=== PATIENT | female | born 1935 | race Caucasian/White ===

== ENCOUNTER → 2016-10-13 | Outpatient (CLI) | payer OTHER, MEDICARE ==
[~2016-10-13] MED LIST: GADAVIST IV PRN
[2016-10-13 09:41] LABS: BLOOD UREA NITROGEN 16 mg/dl (7-18); CREATININE 0.92 mg/dl (0.60-1.20)
--- NOTE | 2016-10-13 15:18 | DIAGNOSTIC IMAGING REPORT ---
BRAIN COMBO FOR IAC CLINICAL HISTORY: Dizziness. COMPARISON STUDY: No previous studies for comparison. TECHNIQUE: Utilizing a 1.5 Irma magnet, multiplanar, multi echo imaging of the brain was performed pre and postcontrast ministration with thin cut imaging through the internal auditory canals. Injection of 8 cc of Gadavist IV was uneventful. FINDINGS: There are no areas of restricted diffusion. No acute intracranial hemorrhage, midline shift or mass effect is present. Ventricular system is normal for age. Basilar cisterns are patent. There are no extra-axial collections. Flow-voids for the major intracranial vessels are present. Multiple small white matter T2 hyperintense foci suggest mild small vessel disease. There is no intracranial mass or pathologic enhancement. No mass or abnormal enhancement is identified within the internal auditory canals. The right anterior inferior cerebellar artery minimally extends into the right internal artery canal and contacts the right 7th and 8th cranial nerves. This finding is of uncertain clinical significance. Calvarial signal is maintained. Orbits and sinuses are unremarkable. There is no fluid within the mastoid air cells. IMPRESSION: 1. No acute intracranial findings. 2. No intracranial masses or pathologic enhancement within the internal auditory canals. 3. Right anterior inferior cerebellar artery slightly extends into the right internal auditory canal and contacts the right 7th and 8th cranial nerves. This finding is of questionable clinical significance and can be seen in asymptomatic patients. Electronically signed by: aH Haines M.D. 10/13/2016 3:16 PM Dictated Date/Time: 10/13/2016 10:35 AM
== END | disposition home or self-care (01) ==
LOC: C.MRI 08:08
PROVIDERS: ATTEND Physician Assistant
DX: R42 Dizziness and giddiness (principal); H90.3 Sensorineural hearing loss, bilateral

== ENCOUNTER 2023-11-19 16:06 | Inpatient (IN) ==
--- NOTE | 2023-11-19 16:49 | XRay Report ---
XR chest 1V portable HISTORY: Dyspnea COMPARISON: None. FINDINGS: No focal lung consolidations to suggest pneumonia. No evidence for pulmonary edema. Mild in terstitial thickening which is likely chronic. The cardiac silhouette is mildly enlarged. There are c alcifications within the aortic knob. No pleural effusions. No pneumothorax. IMPRESSION: Mild cardiomegaly. Otherwise, no acute process within the chest. ACT 112: Negative or not required by law. Electronically signed by: Christofer Titus M.D. 11/19/2023 4:48 PM
[2023-11-19 17:10] LABS: Basophils # (auto) 0.05 K/uL (0.00-0.20); Basophils % (auto) 0.8 %; Eosinophils # (auto) 0.09 K/uL (0.00-0.50); Eosinophils % (auto) 1.4 %; Hematocrit (blood only) 44.2 % (37.0-47.0); Hemoglobin 14.8 g/dl (12.0-16.0); Immature Granulocytes # (auto) 0.02 K/uL (0.01-0.20); Immature Granulocytes % (auto) 0.3 %; Lymphocytes # (auto) 1.19 K/uL (1.20-3.40); Lymphocytes % (auto) 18.6 %; Mean Corpuscular Hemoglobin 29.5 pg (25.0-34.0); Mean Corpuscular Hgb Conc 33.5 g/dL (32.0-36.0); Mean Corpuscular Volume 88.2 fL (80.0-100.0); Mean Platelet Volume 11.8 fL (9.4-12.4); Monocytes # (auto) 0.71 K/uL (0.11-0.59); Monocytes % (auto) 11.1 %; Neutrophils # (auto) 4.33 K/uL (1.40-6.50); Neutrophils % (auto) 67.8 %; Platelet Count 189 K/uL (130-400); RDW Coefficient of Variation 13.3 % (11.5-14.5); RDW Standard Deviation 43.1 fL (36.4-46.3); Red Blood Count 5.01 M/uL (4.20-5.40); White Blood Count 6.39 K/ul (4.8-10.8)
[2023-11-19 17:23] LABS: Albumin Globulin Ratio 1.6 (0.9-2); Albumin Level 4.4 gm/dl (3.4-5.0); BUN Creatinine Ratio 32.6 (10-20); Calcium 10.1 mg/dl (8.6-10.3); Creatinine Clr Calc Pharmacy 66.7 ml/min; Est GFR (African American) 62.4 ml/min; Est GFR (Non-African American) 53.9 ml/min; Globulin 2.7 gm/dl (2.5-4.0); Magnesium 1.6 mg/dl (1.7-2.4); Total Protein 7.1 gm/dl (6.0-8.3)
[2023-11-19] MEDS: FUROSEMIDE 40 MG/4 ML VIAL IV ONE (18:10)
[2023-11-19] MEDS: POTASSIUM CHLORIDE CRTAB 20 MEQ TABCR PO STA ×2 (18:10→20:16)
[2023-11-19] MEDS: POTASSIUM CHLORIDE / WTR 10 MEQ/100 ML PLCT IV ONE (18:10)
--- NOTE | 2023-11-19 18:17 | Emergency Department Note ---
Impression & Plan SOB (shortness of breath), Atrial fibrillation, Anticoagulant long-term use, CHF (congestive heart failure) ED Provider Note NAME: IAM ALICIA AGE: 88 SEX: Female INFORMANT: Patient ED PROVIDER(S): Mauro Pleitez MD CHIEF COMPLAINT: Shortness of breath PLAN: Disposition: Admitted Outpatient prescription management: none Referral: None MEDICAL DECISION MAKING: Patient presented because of shortness of breath. EMS noted her O2 saturations were in the 80s. Patient responded well to supplemental oxygen. She felt significantly better with oxygen. Chest x-ray reveals cardiomegaly without infiltrate. CBC was unremarkable. BNP is elevated. Patient has hypokalemia. She was given IV and oral potassium. Patient was treated with IV Lasix. Consultation made with cardiology, Dr Chen. Case discussed and diagnostics were reviewed. Discussed admission for diuresis and further management. He was in agreement. No additional recommendations made. Consultation was made with [facility] service. Patient was evaluated in the ER and admitted for further management. Care/management discussed with: Discussed with business process manager Level of care consideration(s): After review of the information above and other included data, I feel the patient requires escalation of care to admission Triage Nursing notes: reviewed and agree them. Vital Signs: reviewed and remarkable for hypertension Additional History obtained from: none Chronic Medical/Social Conditions affecting care: CHF, A-fib, anticoagulation Prior/ Outside/ External records reviewed: Prior cardiac echo reviewed mitral and aortic regurg noted. Differential Diagnosis: Reactive airway disease, pneumonia, pneumothorax, COPD, CHF, infections, cardiac ischemia, pulmonary embolism, musculoskeletal, gastrointestinal, as well as other pathologies. Diagnostics, independently interpreted by me: ECG: Twelve-lead ECG reveals atrial fibrillation at [address] elevation. Cardiac Monitoring: Cardiac monitoring ordered by me: The patient was placed on continuous cardiac monitoring and observed. It revealed atrial fibrillation at 80 bpm Medical decision rules: none Imaging studies: Chest x-ray concerning for cardiomegaly without infiltrate or significant effusion. I refer you to the EMR for further details. HPI: 88 year old Female arrives for evaluation of shortness of breath. This started over the last several days and is increasing. The patient also notes the following associated symptoms, heavy feeling of the chest without describing chest pain. Patient notes dyspnea on exertion. EMS noted that the patient had O2 saturations in the 80s but responded well to supplemental oxygen. 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 Current pain is rated as 0/10. Patient also notes frequent urination but this is not a new problem for her. She follows with urology for overactive bladder. Pt denies LOC, headache, fevers, chills, diaphoresis, visual changes, neck pain, chest pain, nausea, vomiting, abdominal pain, back pain, melena, hematochezia, new urinary symptoms, numbness, weakness, lymphadenopathy, rash, or other complaints. . PAST MEDICAL HISTORY: See Below, cardiomyopathy, CHF, A-fib, anticoagulated PAST SURGICAL HISTORY: See Below, SOCIAL HISTORY: See Below, retired HOME MEDICATIONS: See Below ALLERGIES: See Below VITALS: See Below PHYSICAL EXAMINATION: GENERAL: Awake, alert, mildly dyspneic-appearing, in no distress HENT: Normocephalic, atraumatic. Oropharynx unremarkable. EYES: Normal conjunctiva. Sclera non-icteric. NECK: Inspection normal. Non-tender. Supple. No nuchal rigidity. FROM. No masses. RESPIRATORY: Clear to auscultation. No wheezes. No rales. Mildly increased respiratory effort. CARDIAC: Normal rate. Irregular rhythm. No murmurs. No rubs. Extremities warm and well perfused. Pulses equal. No JVD. GI: Soft, non-distended. No tenderness to palpation. No rebound or guarding. No masses. RECTAL: Deferred. MUSCULOSKELETAL: Atraumatic. Chest examination reveals no tenderness. The back is symmetrical on inspection without obvious abnormality. There is no CVA tenderness to palpation. No joint edema. LOWER EXTREMITIES: Calves are equal size bilaterally and non-tender. No edema. Chronic venous discoloration. NEURO: Normal sensorium. No sensory or motor deficits noted. SKIN: No rash or jaundice noted. PROCEDURES: none CRITICAL CARE: none OBSERVATION NOTE: none Past Med/Surg History Medical History Overactive bladder Diabetes mellitus, type 2 Per 12/27/19 PCP note- last Hgb A1C 7.1 Hypothyroidism Basal cell carcinoma of nose Congestive heart failure Admitted October 2019 for diastolic CHF at [facility]- per cardio note 7/23/20- CHF now corrected with meds and patient feels well Atrial fibrillation reason for scheduled cardioversion, reason for eliquis Benign thyroid cyst Bowel obstruction High cholesterol Surgical History History of bilateral tubal ligation History of dilatation and curettage History of varicose vein ligation and stripping bilt History of colonoscopy History of esophagogastroduodenoscopy (EGD) History of Mohs micrographic surgery for skin cancer History of tooth extraction all teeth History of lumpectomy of right breast benign S/P thyroid biopsy History of thyroid surgery benign lump removal History of bilateral cataract extraction History of cardiac cath 2000 @ [facility] d/t SOB--no stents placed 2005 @ [facility]--no stents placed H/O exploratory laparotomy Family History Mother Diabetes Heart disease Cancer Sister Diabetes Heart disease Brother Cancer Hypertension Other No family history of adverse response to anesthesia Social History Smoking Status: Never smoker Second Hand Exposure: No; Do You Dip or Chew Tobacco: No; Hx Alcohol Use: No Hx Substance Use: No Preferred Language: Burmese Communication Ability: Effective Printer Assistant Required: No Beliefs That Will Affect Care: None marital status: Current Living Situation: Alone current occupational status: retired Feels Safe at Home: Yes Safety Concerns: Feels Safe At This Time Assistive Devices: Cane, Walker and Other Allergies Allergies Allergy/AdvReac Type Severity Reaction Status Date / Time lidocaine Allergy Intermediate rash, face Verified 11/19/23 19:14 got puffy Home Meds Home Medications Medication Instructions Recorded Confirmed atorvastatin 40 mg tablet 40 mg PO DAILY 12/25/19 11/19/23 glucosamine HCl 1,500 mg tablet 3,000 mg PO DAILY 12/25/19 11/19/23 levothyroxine 88 mcg capsule 88 mcg PO DAILY 12/25/19 11/19/23 apixaban 5 mg tablet (Eliquis) 5 mg PO BID 02/08/20 11/19/23 cholecalciferol (vitamin D3) 25 1,000 units PO DAILY 02/08/20 11/19/23 mcg (1,000 unit) capsule furosemide 40 mg tablet 40 mg PO DAILY 02/08/20 11/19/23 icosapent ethyl 1 gram capsule 1 gm PO DAILY 02/08/20 11/19/23 (Vascepa) metformin 500 mg tablet 500 mg PO BID 02/08/20 11/19/23 multivitamin 1 tab PO DAILY 02/08/20 11/19/23 potassium chloride 20 mEq 20 meq PO DAILY 02/08/20 11/19/23 tablet,extended release vitamin E 268 mg (400 unit) capsule 400 unit PO DAILY 02/15/20 11/19/23 lisinopril 10 mg tablet 10 mg PO DAILY 06/25/20 11/19/23 ascorbic acid (vitamin C) 500 mg 1,000 mg PO DAILY 01/08/22 11/19/23 capsule Benefiber Tab 1 tab PO DIRECTED PRN 11/19/23 11/19/23 Constipation acetaminophen 500 mg tablet 1,000 mg PO Q6H PRN Pain 11/19/23 11/19/23 (Tylenol Extra Strength) Previous Rx's Medication Instructions Recorded atenolol 50 mg tablet 50 mg PO DAILY #90 tabs 06/25/20 Results & Data (ED) Vital Signs Vital Signs - 24 hr 11/19/23 16:15 11/19/23 16:32 11/19/23 16:44 Temperature 36.7 C Temperature Source Oral Pulse Rate 94 H 82 Pulse Rhythm Regular Regular Pulse Strength Normal Respiratory Rate 23 Respiratory Effort / Characteristics Labored Respiratory Depth Normal Respiratory Pattern Regular Blood Pressure 170/121 H Blood Pressure Mean 137 Blood Pressure Position Sitting Pulse Oximetry 100 100 99 Oxygen Delivery Method Nasal Cannula Nasal Cannula Nasal Cannula Oxygen Flow Rate 2 2 1 Sepsis Recent Fever Within 48 Hours No Sepsis New/Unexplained Change in Mental Status No Sepsis Action Taken by Nursing No Action Required Fraction of Inspired Oxygen - Titration 1 Pulse Oximetry Post Tiitration 100 11/19/23 18:00 Temperature Temperature Source Pulse Rate 84 Pulse Rhythm Pulse Strength Respiratory Rate Respiratory Effort / Characteristics Respiratory Depth Respiratory Pattern Blood Pressure Blood Pressure Mean Blood Pressure Position Pulse Oximetry Oxygen Delivery Method Oxygen Flow Rate Sepsis Recent Fever Within 48 Hours Sepsis New/Unexplained Change in Mental Status Sepsis Action Taken by Nursing Fraction of Inspired Oxygen - Titration Pulse Oximetry Post Tiitration Laboratory Data 11/20/23 02:06 11/20/23 02:06 Lab Results 11/19/23 11/19/23 Range/Units 16:36 18:26 WBC 6.39 (4.8-10.8) K/ul RBC 5.01 (4.20-5.40) M/uL Hgb 14.8 (12.0-16.0) g/dl Hct 44.2 (37.0-47.0) % MCV 88.2 (80.0-100.0) fL MCH 29.5 (25.0-34.0) pg MCHC 33.5 (32.0-36.0) g/dL RDW Std Deviation 43.1 (36.4-46.3) fL RDW Coeff of Jese 13.3 (11.5-14.5) % Plt Count 189 (130-400) K/uL MPV 11.8 (9.4-12.4) fL Immature Gran % (Auto) 0.3 % Neut % (Auto) 67.8 % Lymph % (Auto) 18.6 % [place] % (Auto) 11.1 % Eos % (Auto) 1.4 % Baso % (Auto) 0.8 % Neut # (Auto) 4.33 (1.40-6.50) K/uL Lymph # (Auto) 1.19 L (1.20-3.40) K/uL [place] # (Auto) 0.71 H (0.11-0.59) K/uL Eos # (Auto) 0.09 (0.00-0.50) K/uL Baso # (Auto) 0.05 (0.00-0.20) K/uL Immature Gran # (Auto) 0.02 (0.01-0.20) K/uL Sodium 142 (136-145) mmol/L Potassium 3.0 L (3.5-5.1) mmol/L Chloride 101 (98-107) mmol/L Carbon Dioxide 28 (21-32) mmol/L Anion Gap 13 H (3-11) BUN 31 H (6-23) mg/dl Creatinine 0.95 (0.6-1.2) mg/dl Est Cr Clr Drug Dosing 66.7 ml/min Est GFR ( Amer) 62.4 ml/min Est GFR (Non-Af Amer) 53.9 ml/min BUN/Creatinine Ratio 32.6 H (10-20) Glucose 116 H (70-99(Fasting)) mg/dl Calcium 10.1 (8.6-10.3) mg/dl Magnesium 1.6 L (1.7-2.4) mg/dl Total Bilirubin 1.0 (0.2-1.0) mg/dl AST 21 (13-39) U/L ALT 17 (7-52) U/L Alkaline Phosphatase 76 (34-104) U/L Troponin I High Sens 9.7 (0-14) pg/ml B-Natriuretic Peptide 243 H (0-100) pg/ml Total Protein 7.1 (6.0-8.3) gm/dl Albumin 4.4 (3.4-5.0) gm/dl Globulin 2.7 (2.5-4.0) gm/dl Albumin/Globulin Ratio 1.6 (0.9-2) Urine Color Yellow Urine Appearance Clear (Clear) Urine pH 7.5 (4.5-7.5) Ur Specific [place] 1.006 (1.000-1.030) Urine Protein Negative (Negative) Urine Glucose (UA) Negative (Negative) Urine Ketones Trace H (Negative) Urine Blood Negative (Negative) Urine Nitrite Negative (Negative) Urine Bilirubin Negative (Negative) Urine Urobilinogen Negative (Negative) Ur Leukocyte Esterase Trace H (Negative) Urine WBC (Auto) 0-5 (0-5) /hpf Urine RBC (Auto) 0-2 (0-2) /hpf U Hyaline Cast (Auto) 0-2 (0-2) /lpf U Epithel Cells (Auto) 0-2 (0-2) /hpf Urine Bacteria (Auto) None Seen (None Seen) Administered Medications Apixaban (Apixaban 5 Mg Tablet) 5 mg PO BID [facility] Stop: 12/19/23 22:28 Last Admin: 11/20/23 20:04 Dose: 5 mg Documented By: Admin: 11/20/23 09:28 Dose: 5 mg Documented By: Admin: 11/19/23 23:12 Dose: 5 mg Documented By: ADONAY Atorvastatin Calcium (Atorvastatin 40 Mg Tab) 40 mg PO DAILY [facility] Stop: 12/20/23 08:59 Last Admin: 11/20/23 09:30 Dose: 40 mg Documented By: LYNDSEY Carvedilol (Carvedilol 12.5 Mg Tab) 12.5 mg PO BIDM [facility] Stop: 12/20/23 16:59 Last Admin: 11/20/23 17:43 Dose: 12.5 mg Documented By: LYNDSEY Furosemide (Furosemide 40 Mg Tab) 40 mg PO DAILY [facility] Stop: 12/20/23 08:59 Last Admin: 11/20/23 09:30 Dose: 40 mg Documented By: LYNDSEY Insulin Aspart (Insulin Aspart Per Unit Charge) 0 units SC ACHS [facility] Stop: 12/19/23 20:59 Last Admin: 11/20/23 20:28 Dose: Not Given Documented By: Admin: 11/20/23 17:42 Dose: Not Given Documented By: Admin: 11/20/23 12:51 Dose: Not Given Documented By: Admin: 11/20/23 09:00 Dose: Not Given Documented By: Admin: 11/19/23 21:43 Dose: Not Given Documented By: ADONAY Co-signed By: GEORGIE Levothyroxine Sodium (Levothyroxine Sodium 88 Mcg Tablet) 88 mcg PO DAILYBB [facility] Stop: 12/20/23 06:29 Last Admin: 11/20/23 06:31 Dose: 88 mcg Documented By: COOPER Miscellaneous (Icosapent Ethyl [Vascepa]: Order Awaiting Action) 1 each N/A QS [facility] Stop: 12/20/23 07:59 Last Admin: 11/20/23 16:00 Dose: Not Given Documented By: Admin: 11/20/23 09:32 Dose: Not Given Documented By: LYNDSEY Spironolactone (Spironolactone 25 Mg Tab) 25 mg PO QAM [facility] Stop: 12/20/23 12:29 Last Admin: 11/20/23 13:23 Dose: 25 mg Documented By: LYNDSEY Discontinued Medications Aspirin (Aspirin Chew 324 Mg) 324 mg PO NOW STA Stop: 11/19/23 19:48 Last Admin: 11/19/23 20:16 Dose: 324 mg Documented By: ADONAY Atenolol (Atenolol 50 Mg Tablet) 50 mg PO DAILY [facility] Stop: 12/20/23 08:59 Last Admin: 11/20/23 09:30 Dose: 50 mg Documented By: LYNDSEY Furosemide (Furosemide 40 Mg/4 Ml Vial) 40 mg IV ONE ONE Stop: 11/19/23 17:43 Last Admin: 11/19/23 18:10 Dose: 40 mg Documented By: RADHA Potassium Chloride (K Grant / Wtr) 10 meq in 100 mls @ 100 mls/hr IV ONE ONE Stop: 11/19/23 18:41 Last Infusion: 11/20/23 00:46 Dose: Infused Documented By: Admin: 11/19/23 18:10 Dose: 100 mls/hr Documented By: RADHA Magnesium Sulfate/Dextrose (Magnesium Sulfate / D5w) 1 gm in 100 mls @ 50 mls/hr IV Q2H [facility] Stop: 11/19/23 23:59 Last Infusion: 11/20/23 00:46 Dose: Infused Documented By: Admin: 11/19/23 22:34 Dose: 50 mls/hr Documented By: Infusion: 11/19/23 22:34 Dose: Infused Documented By: Admin: 11/19/23 20:16 Dose: 50 mls/hr Documented By: ADONAY Lisinopril (Lisinopril 10 Mg Tab) 10 mg PO DAILY [facility] Stop: 12/20/23 08:59 Last Admin: 11/20/23 09:30 Dose: 10 mg Documented By: LYNDSEY Nitroglycerin (Nitroglycerin 2% Ointment 30gm Tube) 0.5 inch EXT NOW STA Stop: 11/19/23 18:30 Last Admin: 11/19/23 18:57 Dose: 0.5 inch Documented By: RADHA Nitroglycerin (Nitroglycerin 2% Ointment 30gm Tube) 0.5 inch EXT Q6H [facility] Stop: 12/20/23 00:00 Last Admin: 11/20/23 12:21 Dose: Not Given Documented By: Admin: 11/20/23 06:06 Dose: 0.5 inch Documented By: Admin: 11/19/23 23:12 Dose: 0.5 inch Documented By: ADONAY Potassium Chloride (Potassium Chloride Crtab 20 Meq Tabcr) 40 meq PO NOW STA Stop: 11/19/23 17:43 Last Admin: 11/19/23 18:10 Dose: 40 meq Documented By: RADHA Potassium Chloride (Potassium Chloride Crtab 20 Meq Tabcr) 20 meq PO NOW STA Stop: 11/19/23 19:50 Last Admin: 11/19/23 20:16 Dose: 20 meq Documented By: ADONAY Potassium Chloride (Potassium Chloride Crtab 20 Meq Tabcr) 40 meq PO NOW STA Stop: 11/20/23 08:13 Last Admin: 11/20/23 09:29 Dose: 40 meq Documented By: KKS Imaging Data Radiologist's Impression: Chest X-Ray 11/19/23 16:21 XR chest 1V portable HISTORY: Dyspnea COMPARISON: None. FINDINGS: No focal lung consolidations to suggest pneumonia. No evidence for pulmonary edema. Mild interstitial thickening which is likely chronic. The cardiac silhouette is mildly enlarged. There are calcifications within the aortic knob. No pleural effusions. No pneumothorax. IMPRESSION: Mild cardiomegaly. Otherwise, no acute process within the chest. ACT 112: Negative or not required by law. Electronically signed by: Christofer Titus M.D. 11/19/2023 4:48 PM Discharge Plan Visit Data Chief Complaint: Shortness of Breath/Dyspnea ED Provider: Mauro Pleitez Discharge Problem: SOB (shortness of breath), Atrial fibrillation, Anticoagulant long-term use, CHF (congestive heart failure) Patient Disposition: Admitted As Inpatient Discharge Instructions Interventions: ED Discharge Assessment Last Done: 11/19/23 22:29
[2023-11-19 18:49] LABS: Appearance Urine Clear (Clear); Bacteria Urine Automated None Seen (None Seen); Bilirubin Urine Negative (Negative); Blood Urine Negative (Negative); Cast Urine Automated 0-2 /lpf (0-2); Color Urine Yellow; Epithelial Cell Urine Auto 0-2 /hpf (0-2); Glucose Urine UA Negative (Negative); Ketones Urine Trace (Negative); Leukocyte Esterase Urine Trace (Negative); Nitrite Urine Negative (Negative); Protein Urine Negative (Negative); RBC Urine Automated 0-2 /hpf (0-2); Specific Gravity Urine 1.006 (1.000-1.030); Urobilinogen Urine Negative (Negative); WBC Urine Automated 0-5 /hpf (0-5); pH Urine 7.5 (4.5-7.5)
[2023-11-19 18:56] LABS: Troponin I High Sensitivity 9.7 pg/ml (0-14)
[2023-11-19] MEDS: NITROGLYCERIN 2% OINTMENT 30GM TUBE EXT STA (18:57)
--- NOTE | 2023-11-19 19:20 | History & Physical Report ---
Date of Service November 19, 2023 Assessment & Plan (1) REEDER (dyspnea on exertion): Plan: -Admit to med/tele on pulse oximetry -Currently stable and asymptomatic at the time of the exam -Presented to the ED with one week of increased REEDER and associated substernal chest pressure -Usually resolves with rest -On exam the patient does not appear volume overloaded as lungs are clear, she is without JVD, and she is without increased swelling -BNP is mildly elevated at 243, initial high sen trop is WNL, and ECg shows afib without acute ST segment or T-wave changes -Low suspicion for PE at this time as she has been hypertensive, compliant with Eliquis, without pleuritic chest pain, and now is stable on RA -At this point I am most concerned for possible unstable angina -Will give her 324 mg now -Will repeat another high sen trop as it has been greater than 2 hours since the initial draw -Will continue the nitroglycerine past placed in the ED for BP control for now -Patient had a recent repeat echo on 10/26/23, will hold repeat for now -Will hold additional IV diuresis at this time and continue her home PO 40 mg daily tomorrow -Home Eliquis for DVT PPX -HH/DMII diet until midnight then NPO -AM CBC, CMP, mag, (2) Atrial fibrillation: Plan: -Currently in rate controlled afib -Continue Xarelto and atenolol -Keep Potassium at or above 4 and mag at or above 2 (3) Hypokalemia: Plan: -Potassium of 3.0 on arrival -Likely due to daily lasix use -Mag is 1.5 -S/P 40 meq PO KCL, 10 meq IV KCL, and 1gm IV mag sulfate in the ED -Will give an additional 40 meq PO KCL and 3 bags 1 gm IV mag-sulfate on admission -Will repeat electrolytes this evening to ensure they are stable -Monitor AM electrolytes (4) Chest pressure: Plan: -See REEDER (5) Cardiomyopathy: Plan: -Currently euvolemic on exam -Will continue home lasix for now -Cardiology consult (6) High cholesterol: Plan: -Continue statin (7) Diabetes mellitus, type 2: Plan: -Hold metformin -Monitor BSG ACHS goal is 110-160 -Start CF 50 and CR 15 ACHS for now -Adjust regimen as needed Plan The patient was discussed with Dr. Zamarripa at the time of the admission History of Present Illness Chief Complaint: SOB/REEDER, chest "heaviness" Primary Care Provider: Jonny Preston PA-C Mary Grace is an 88 year old female with a PMH significant for afib (on Eliquis), HTN, HFrEF (LVEF of 30-35%), moderate mitral regurgitation, Cardiomyopathy, hyperthyroidism, fibromyalgia who presented to the [facility] ED on via EMS with complaints of progressive SOB and chest heaviness. EMS noted the patient to be hypoxic with SpO2 in the 80s on arrival. On arrival to the ED she was noted to be hypertensive at 170/121, tachycardic with HR in the 90s, afebrile, and stable on 1L NC. Labs were significant for BUN of 31, AG of 13 with bicarb WNL, potassium of 3.0, mag of 1.6, BNP of 243, high sen trop WNL, and UA with trace ketones and leukocyte esterase. Chest xray was read as mild cardiomegaly without other acute findings. Prior to admission the patient was given 40 mg IV lasix, 0.5 inches of Nitro paste, 40 meq PO KCL, and 10 meq IV KCL. At the time of the exam the patient was sitting in bed in no acute distress. I turned her oxygen to RA at the start of my exam and she remained stable on RA throughout. She states that she started to notice her chronic REEDER has been significantly worse over the past week. She has also been experiencing substernal chest pressure "like someone is sitting on my chest" with these episodes of REEDER. Her symptoms typically resolve with rest. Denies recent fever, chills, chest pain, palpitations, hemoptysis, productive cough, abd pain, nausea, vomiting, diarrhea, dysuria, hematuria, melena, LE swelling, and recent trauma. We discussed code status, she is a DNR/DNI and her son would make decisions for her if she cannot make them himself. Please refer to Dr. Zamarripa's attestation for any changes to the treatment plan Allergies Allergy/AdvReac Type Severity Reaction Status Date / Time lidocaine Allergy Intermediate rash, face Verified 11/19/23 19:14 got puffy Home Medications Medication Instructions Recorded Confirmed Type atorvastatin 40 mg tablet 40 mg PO DAILY 12/25/19 11/19/23 History glucosamine HCl 1,500 mg tablet 3,000 mg PO DAILY 12/25/19 11/19/23 History levothyroxine 88 mcg capsule 88 mcg PO DAILY 12/25/19 11/19/23 History apixaban 5 mg tablet (Eliquis) 5 mg PO BID 02/08/20 11/19/23 History cholecalciferol (vitamin D3) 25 1,000 units PO DAILY 02/08/20 11/19/23 History mcg (1,000 unit) capsule furosemide 40 mg tablet 40 mg PO DAILY 02/08/20 11/19/23 History icosapent ethyl 1 gram capsule 1 gm PO DAILY 02/08/20 11/19/23 History (Vascepa) metformin 500 mg tablet 500 mg PO BID 02/08/20 11/19/23 History multivitamin 1 tab PO DAILY 02/08/20 11/19/23 History potassium chloride 20 mEq 20 meq PO DAILY 02/08/20 11/19/23 History tablet,extended release vitamin E 268 mg (400 unit) capsule 400 unit PO DAILY 02/15/20 11/19/23 History atenolol 50 mg tablet 50 mg PO DAILY #90 tabs 06/25/20 11/19/23 Rx lisinopril 10 mg tablet 10 mg PO DAILY 06/25/20 11/19/23 History ascorbic acid (vitamin C) 500 mg 1,000 mg PO DAILY 01/08/22 11/19/23 History capsule Benefiber Tab 1 tab PO DIRECTED PRN 11/19/23 11/19/23 History Constipation acetaminophen 500 mg tablet 1,000 mg PO Q6H PRN Pain 11/19/23 11/19/23 History (Tylenol Extra Strength) Past Med/Surg History Medical History Overactive bladder Diabetes mellitus, type 2 Per 12/27/19 PCP note- last Hgb A1C 7.1 Hypothyroidism Basal cell carcinoma of nose Congestive heart failure Admitted October 2019 for diastolic CHF at [facility]- per cardio note 02/08/20- CHF now corrected with meds and patient feels well Atrial fibrillation reason for scheduled cardioversion, reason for eliquis Benign thyroid cyst Bowel obstruction High cholesterol Surgical History History of bilateral tubal ligation History of dilatation and curettage History of varicose vein ligation and stripping bilt History of colonoscopy History of esophagogastroduodenoscopy (EGD) History of Mohs micrographic surgery for skin cancer History of tooth extraction all teeth History of lumpectomy of right breast benign S/P thyroid biopsy History of thyroid surgery benign lump removal History of bilateral cataract extraction History of cardiac cath 2000 @ [facility] d/t SOB--no stents placed 2005 @ [facility]--no stents placed H/O exploratory laparotomy Family History Mother Diabetes Heart disease Cancer Sister Diabetes Heart disease Brother Cancer Hypertension Other No family history of adverse response to anesthesia Social History Smoking Status: Never smoker Second Hand Exposure: No; Do You Dip or Chew Tobacco: No; Hx Alcohol Use: No Hx Substance Use: No Preferred Language: Welsh Communication Ability: Effective Manager Laboratory Required: No Beliefs That Will Affect Care: None marital status: Current Living Situation: Alone current occupational status: retired Feels Safe at Home: Yes Safety Concerns: Feels Safe At This Time Assistive Devices: Cane, Walker and Other Physical Exam Physical Exam: Physical Exam: General: In no acute distress, stated age, well-nourished, non-toxic appearing HEENT: Normocephalic, atraumatic, no scleral icterus, pupils around round, symmetrical, and reactive to light, no JVD, moist mucus membranes, trachea midline, no thyromegaly Chest/Pulm: No respiratory distress, symmetrical chest expansion, clear tania th sounds throughout Cardiac: irregular rate and rhythm, no murmurs noted Abdomen: Negative for ascites and bruising, normoactive bowel sounds, soft, non-tender to palpation throughout Musculoskeletal: Symmetrical and without signs of acute trauma, upper and lower extremities with full ROM, no atrophy, spasticity, or flaccidity Extremities: Radial, dorsalis pedis, and posterior tibial pulses are intact and symmetrical, no edema noted in the BL LE's Skin: Warm, dry, no rashes , lesions, or scars noted Neuro: Alert and oriented to person, place, month, year, and president, no focal defects, no tremors noted Psych: No acute distress, calm and cooperative during the exam Results & Data Results & Data Vital Signs (Past 12 Hours) Vital Signs Temp Pulse Pulse Resp BP BP Pulse Ox 11/19/23 18:29 81 19 173/142 H 98 11/19/23 18:00 84 11/19/23 16:44 82 99 11/19/23 16:32 100 11/19/23 16:15 36.7 C 94 H 23 170/121 H 100 O2 Del Method O2 Flow Rate 11/19/23 18:29 Nasal Cannula 1 11/19/23 18:00 11/19/23 16:44 Nasal Cannula 1 11/19/23 16:32 Nasal Cannula 2 11/19/23 16:15 Nasal Cannula 2 Laboratory Results Abnormal lab results 11/19/23 11/19/23 Range/Units 16:36 18:26 Lymph # (Auto) 1.19 L (1.20-3.40) K/uL [place] # (Auto) 0.71 H (0.11-0.59) K/uL Potassium 3.0 L (3.5-5.1) mmol/L Anion Gap 13 H (3-11) BUN 31 H (6-23) mg/dl BUN/Creatinine Ratio 32.6 H (10-20) Glucose 116 H (70-99(Fasting)) mg/dl Magnesium 1.6 L (1.7-2.4) mg/dl B-Natriuretic Peptide 243 H (0-100) pg/ml Urine Ketones Trace H (Negative) Ur Leukocyte Esterase Trace H (Negative) Diagnostic Findings Chest X-Ray 11/19/23 16:21 XR chest 1V portable HISTORY: Dyspnea COMPARISON: None. FINDINGS: No focal lung consolidations to suggest pneumonia. No evidence for pulmonary edema. Mild interstitial thickening which is likely chronic. The cardiac silhouette is mildly enlarged. There are calcifications within the aortic knob. No pleural effusions. No pneumothorax. IMPRESSION: Mild cardiomegaly. Otherwise, no acute process within the chest. ACT 112: Negative or not required by law. Electronically signed by: Christofer Titus M.D. 11/19/2023 4:48 PM ECG Additional Comments: Atrial fibrillation Nonspecific ST abnormality Abnormal ECG When compared with ECG of 29-SEP-2023 09:55, (unconfirmed) No significant change was found Code Status & VTE Plan Code Status DNR/DNI VTE Prophylaxis Plan VTE Prophylaxis will be ordered: Yes Supervising Physician Co-Signing Physician Notes Attending addendum: I have physically seen this patient, have supervised the BUSTER's activities, and agree with the H&P unless as otherwise noted. Assessment and Plan: Dyspnea on exertion/atrial fibrillation/hypertension/cardiomyopathy- The patient will be admitted to telemetry for serial cardiac enzymes, serial EKG's, cardiac rhythm monitoring Aspirin 324 mg now Continue apixaban, atenolol, lisinopril Hold furosemide, due to potassium of 3.0 and magnesium 1.6 and not in CHF Given Klor-Con 40 mEq p.o. and potassium chloride 10 mill equivalent IV rider Give magnesium sulfate 2 g IV Repeat laboratories renal function panel and magnesium in the a.m. Diabetes mellitus- Hold metformin Placed on Accu-Cheks with NovoLog SSI as noted Check hemoglobin A1c Hyperlipidemia- Continue atorvastatin Check a fasting lipid panel in the a.m. PG Care Time/CCT Total # of Minutes Spent Total Time Spent with Patient: Total time spent is greater than 50% in coordination of care (as documented) at patient's floor/unit and/or counseling patient: Coding [place] [address] INT INP/OBS CARE 3/75MIN Patient Type Established Medical Decision Making High Complexity Diagnoses REEDER (dyspnea on exertion) R06.09 Atrial fibrillation I48.91 Hypokalemia E87.6 Chest pressure R07.89 Dilated cardiomyopathy I42.0 Cardiomyopathy type: dilated High cholesterol E78.00 Diabetes mellitus, type 2 E11.9 (5) Cardiomyopathy Cardiomyopathy type: dilated Qualified Code(s): I42.0 - Dilated cardiomyopathy
[2023-11-19] MEDS ORDERED: GLUCOSE 40% GEL 15 GM TUBE PO PRN (20:09)
[2023-11-19] MEDS ORDERED: GLUCAGON FOR INJ 1 MG VIAL SQ PRN (20:09)
[2023-11-19] MEDS ORDERED: GLUCOSE 10 TAB/TUBE PO PRN (20:09)
[2023-11-19] MEDS ORDERED: CARBOHYDRATES FOR HYPOGLYCEMIA PO PRN (20:09)
[2023-11-19] MEDS ORDERED: DEXTROSE 50% 50 ML SYRINGE IV PRN (20:09)
[2023-11-19] MEDS: ASPIRIN CHEW 324 MG PO STA (20:16)
[2023-11-19] MEDS: MAGNESIUM SULFATE / D5W 1 GM/100 ML BAG IV SCH (20:16)
[2023-11-19 21:00] LABS: Adenovirus PCR Not Detected (NotDetected); Bordetella parapertussis PCR Not Detected (NotDetected); Bordetella pertussis PCR Not Detected (NotDetected); Chlamydia pneumoniae PCR Not Detected (NotDetected); Coronavirus 229E PCR Not Detected (NotDetected); Coronavirus CoV-2 (COVID19)PCR Not Detected (NotDetected); Coronavirus HKU1 PCR Not Detected (NotDetected); Coronavirus NL63 PCR Not Detected (NotDetected); Coronavirus OC43PCR Not Detected (NotDetected); Human Metapneumovirus PCR Not Detected (NotDetected); Influenza A PCR Not Detected (NotDetected); Influenza B PCR Not Detected (NotDetected); Mycoplasma pneumoniae PCR Not Detected (NotDetected); Parainfluenza Virus 1 PCR Not Detected (NotDetected); Parainfluenza Virus 2 PCR Not Detected (NotDetected); Parainfluenza Virus 3 PCR Not Detected (NotDetected); Parainfluenza Virus 4 PCR Not Detected (NotDetected); Respiratory Syncytial VirusPCR Not Detected (NotDetected); Rhinovirus/Enterovirus PCR Not Detected (NotDetected)
[2023-11-19] MEDS: INSULIN ASPART PER UNIT CHARGE SC SCH (21:43)
[2023-11-19] MEDS: APIXABAN 5 MG TABLET PO SCH (23:12)
[2023-11-19] MEDS: NITROGLYCERIN 2% OINTMENT 30GM TUBE EXT SCH (23:12)
[2023-11-19 23:34] LABS: BUN Creatinine Ratio 31.5 (10-20); Calcium 9.8 mg/dl (8.6-10.3); Creatinine Clr Calc Pharmacy 45.4 ml/min; Est GFR (African American) 67.5 ml/min; Est GFR (Non-African American) 58.3 ml/min; Magnesium 2.2 mg/dl (1.7-2.4); Potassium 3.4 mmol/L (3.5-5.1)
[2023-11-20 02:25] LABS: Basophils # (auto) 0.04 K/uL (0.00-0.20); Basophils % (auto) 0.6 %; Eosinophils # (auto) 0.11 K/uL (0.00-0.50); Eosinophils % (auto) 1.6 %; Hematocrit (blood only) 43.8 % (37.0-47.0); Hemoglobin 14.5 g/dl (12.0-16.0); Immature Granulocytes # (auto) 0.02 K/uL (0.01-0.20); Immature Granulocytes % (auto) 0.3 %; Lymphocytes # (auto) 1.34 K/uL (1.20-3.40); Lymphocytes % (auto) 20.1 %; Mean Corpuscular Hemoglobin 29.5 pg (25.0-34.0); Mean Corpuscular Hgb Conc 33.1 g/dL (32.0-36.0); Mean Corpuscular Volume 89.2 fL (80.0-100.0); Mean Platelet Volume 11.5 fL (9.4-12.4); Monocytes # (auto) 0.79 K/uL (0.11-0.59); Monocytes % (auto) 11.8 %; Neutrophils # (auto) 4.38 K/uL (1.40-6.50); Neutrophils % (auto) 65.6 %; Platelet Count 175 K/uL (130-400); RDW Coefficient of Variation 13.3 % (11.5-14.5); RDW Standard Deviation 43.7 fL (36.4-46.3); Red Blood Count 4.91 M/uL (4.20-5.40); White Blood Count 6.68 K/ul (4.8-10.8)
[2023-11-20 02:32] LABS: INR 1.1 (0.9-1.1); Prothrombin Time 12.1 Seconds (9.0-12.0)
[2023-11-20 02:50] LABS: Albumin Globulin Ratio 1.4 (0.9-2); BUN Creatinine Ratio 29.2 (10-20); Calcium 9.8 mg/dl (8.6-10.3); Creatinine Clr Calc Pharmacy 43.9 ml/min; Est GFR (African American) 61.6 ml/min; Est GFR (Non-African American) 53.2 ml/min; Globulin 2.9 gm/dl (2.5-4.0); Magnesium 2.3 mg/dl (1.7-2.4); Potassium 3.5 mmol/L (3.5-5.1); Total Protein 6.9 gm/dl (6.0-8.3)
[2023-11-20] MEDS: LEVOTHYROXINE SODIUM 88 MCG TABLET PO SCH (06:31)
--- NOTE | 2023-11-20 08:15 | Hospitalist Progress Note ---
Date of Service November 20, 2023 Assessment & Plan (1) REEDER (dyspnea on exertion): Plan: -Admit to med/tele on pulse oximetry -Currently stable and asymptomatic at the time of the exam -Presented to the ED with one week of increased REEDER and associated substernal chest pressure -Usually resolves with rest -On exam the patient does not appear volume overloaded as lungs are clear, she is without JVD, and she is without increased swelling -BNP is mildly elevated at 243, initial high sen trop is WNL, and ECg shows afib without acute ST segment or T-wave changes -Low suspicion for PE at this time as she has been hypertensive, compliant with Eliquis, without pleuritic chest pain, and now is stable on RA -At this point I am most concerned for possible unstable angina -Will give her 324 mg now -Will repeat another high sen trop as it has been greater than 2 hours since the initial draw -Will continue the nitroglycerine past placed in the ED for BP control for now -Patient had a recent repeat echo on 10/26/23, will hold repeat for now -Will hold additional IV diuresis at this time and continue her home PO 40 mg daily tomorrow -Home Eliquis for DVT PPX -HH/DMII diet until midnight then NPO -AM CBC, CMP, mag, / Suspect acute on chronic heart failure with newly reduced ejection fraction this past month in setting of underlying afib and hypomagnesemia/hypokalemia on admission Most recent cards note 09/28 with patient HR gradually dropping over past several year, had her diltiazem discontinued and hotler monitor ordered to see difference on/off the diltiazem. Also noting aortic stenosis/MR, prior EF 40-45% --> with repeat ECHO 10/26/23 noting LV systolic function moderately reduced to 30-35%, mild AR/moderate MR Holter monitor report in system with HR varying 40-111bpm, 886 PVCs and 1 ventricular run of 3 beats at 197bpm. 161 pauses over 2 seconds with longest 2.4 seconds, occurring primarily at night after midnight Did have hypomagnesemia/hypokalemia on admission, in setting of afib likely better to be closer to 2/4. K 3.5 on AM labs, mag improved to 2.3. Ordered 40meq to keep closer to 4 w/ her afib to prevent rvr (on 20meq daily, not ordered) Cardiology consulted Change diet from n.p.o. to AHA diet as do not suspect any cardiac catheterization for today Cardiology going to attempt to switch her atenolol to carvedilol and swap out lisinopril for Entresto. Likely benefit from addition of SGLT2 inhibitor and would spironolactone for continued volume management. Messaged DR Chen and will wait to change medications until seen (Patient has appointment on Wednesday with Dr. Chen and depending on changes and response to treatment can consider discharge with close follow-up pending repeat labs and exam.) (2) Atrial fibrillation: Plan: remains in afib, rates controlled but have been dropping per outpt note and recently dc'd her diltiazem atenolol to transition to heart failure medication, carvedilol to be attempted Continue Eliquis appropriately doses for age/renal function/weight Continue to ensure K/mag replete -- stable on AM labs but additional K ordered and will NOT resume her scheduled potassium supplementation as plans to start entresto at this time and will monitor labs in am (3) Hypokalemia: Plan: K 3.0, likely 2nd to lasix use. Mag also checked and 1.5. Replacement ordered and normal on AM labs as above/PO K Monitor k/mag in AM (4) Chest pressure: Plan: No further pressure reported. Troponin levels NOT elevated See REEDER plan (5) Cardiomyopathy: Plan: See above, continued on lasix, cardiac medication changes per Dr Chen (her usual space physicist) Will need f/u eval for cardiomyopathy but no need for urgent cath at this time and DO NOT suspect unstable angina at this time. Dc nitropaste ordered and will monitor (6) High cholesterol: Plan: Continue statin (7) Diabetes mellitus, type 2: Plan: No A1c in system, will add to AM labs Holding home metformin at this time, continue BSG AC/HS, sliding scale for now Plan continued inpatient stay, diet ordered and continue lasix/cardiac medications changes to be done by Dr Chen once seen possible short inpatient stay pending changes/response to such will consult PT to ensure no needs at dc Admission and Anticipated Discharge Date Admission Date: November 19, 2023 Subjective Patient was evaluated around noon, sitting up in the chair eating lunch. Patient reports feeling better and no shortness of breath or chest pain at rest. She does endorse that she has had dyspnea on exertion for several weeks despite trying to increase her activity. She is typically pretty active at baseline but does endorse it has been more difficult recently due to increased fatigue. She notes that she was so short of breath that it was hard to kind of talk in complete sentences the other day. She does still have Nitropaste to her left chest which we will discontinue and discussed Dr. Mckeon agreed to see her. She said that she has not yet been seen by him but does endorse taking Lasix 40 mg daily and 20 mEq of potassium with her Lasix. Discussed suspected electrolytes also contributing to her symptoms with her underlying A-fib and will eventually need evaluation of her car diomyopathy. Discussed we will attempt to make medication changes today with space physicist information services assistant and monitor her response and consider discharge over the weekend. She notes that she has an appointment on Wednesday with Dr. Gaines and already has been transportation arranged. Encouraged her to keep this appointment in the meantime in the event that we are able to discharge her with close follow-up outpatient. Blood pressure elevated on admission however she does report that she checks her blood pressure maybe not all the time at home but frequently and it had been running in the 150s systolically 40s consistently and 70s diastolically. She notes that previously in the past she was running more in the 160s systolically. BP 118/65 this morning and will discontinue her Nitropaste and monitor for any sx will need workup for cardiomyopathy, can be arranged outpt w/ changes to meds She does also endorse orthopnea symptoms and issues with laying flat in bed but attributes this to her prior hip fracture. Physical Exam Physical Exam: Constitutional: 88 yo female sitting up in bed reading paper, NAD Head atraumatic, normocephalic, mmm, no significant JVD CHest: nitropaste to LEFT chest in place Resp: diminished in the bases but no obvious w/c/r, on room air 97% CV: irregularly irregular, rates 50-60s frequent PVcs on monitor, 1+ b/l LE edema, calves nontender GI: +BS, soft/NT : no albright MSK/Neuro/Psych: alert/oriented, pleasant and cooperative with exam, answering questions appropriately, following commands Results & Data Results & Data Vital Signs (Past 12 Hours) Vital Signs Temp Pulse Pulse Pulse Resp BP BP 11/20/23 07:59 36.3 C L 58 L 18 162/72 H 11/20/23 04:04 36.5 C 70 16 152/080 H 11/20/23 01:13 36.5 C 76 24 175/83 H 11/20/23 01:06 11/20/23 00:21 36.5 C 76 24 175/83 H 11/19/23 23:00 72 14 150/75 H 11/19/23 22:30 70 17 126/70 11/19/23 22:00 141/72 H 11/19/23 22:00 68 14 11/19/23 21:30 75 16 11/19/23 21:22 68 11/19/23 21:00 71 16 11/19/23 21:00 146/71 H 11/19/23 20:42 89 20 11/19/23 20:42 149/119 H 11/19/23 20:31 21 Pulse Ox O2 Del Method 11/20/23 07:59 98 Room Air 11/20/23 04:04 95 Room Air 11/20/23 01:13 97 Room Air 11/20/23 01:06 Room Air 11/20/23 00:21 97 Room Air 11/19/23 23:00 96 11/19/23 22:30 95 11/19/23 22:00 11/19/23 22:00 94 11/19/23 21:30 93 11/19/23 21:22 11/19/23 21:00 96 11/19/23 21:00 11/19/23 20:42 97 Room Air 11/19/23 20:42 11/19/23 20:31 Laboratory Results 11/20/23 11/19/23 11/19/23 Range/Units 02:06 Unknown 22:36 WBC 6.68 (4.8-10.8) K/ul RBC 4.91 (4.20-5.40) M/uL Hgb 14.5 (12.0-16.0) g/dl Hct 43.8 (37.0-47.0) % MCV 89.2 (80.0-100.0) fL MCH 29.5 (25.0-34.0) pg MCHC 33.1 (32.0-36.0) g/dL RDW Std Deviation 43.7 (36.4-46.3) fL RDW Coeff of Jese 13.3 (11.5-14.5) % Plt Count 175 (130-400) K/uL MPV 11.5 (9.4-12.4) fL Immature Gran % (Auto) 0.3 % Neut % (Auto) 65.6 % Lymph % (Auto) 20.1 % [place] % (Auto) 11.8 % Eos % (Auto) 1.6 % Baso % (Auto) 0.6 % Neut # (Auto) 4.38 (1.40-6.50) K/uL Lymph # (Auto) 1.34 (1.20-3.40) K/uL [place] # (Auto) 0.79 H (0.11-0.59) K/uL Eos # (Auto) 0.11 (0.00-0.50) K/uL Baso # (Auto) 0.04 (0.00-0.20) K/uL Immature Gran # (Auto) 0.02 (0.01-0.20) K/uL PT 12.1 H (9.0-12.0) Seconds INR 1.1 (0.9-1.1) Sodium 141 140 (136-145) mmol/L Potassium 3.5 3.4 L (3.5-5.1) mmol/L Chloride 102 104 (98-107) mmol/L Carbon Dioxide 29 27 (21-32) mmol/L Anion Gap 10 9 (3-11) BUN 28 H 28 H (6-23) mg/dl Creatinine 0.96 0.89 (0.6-1.2) mg/dl Est Cr Clr Drug Dosing 43.9 45.4 ml/min Est GFR ( Amer) 61.6 67.5 ml/min Est GFR (Non-Af Amer) 53.2 58.3 ml/min BUN/Creatinine Ratio 29.2 H 31.5 H (10-20) Glucose 164 H 140 H (70-99(Fasting)) mg/dl POC Glucose (70-99) mg/dl Calcium 9.8 9.8 (8.6-10.3) mg/dl Magnesium 2.3 2.2 (1.7-2.4) mg/dl Total Bilirubin 1.0 (0.2-1.0) mg/dl AST 19 (13-39) U/L ALT 14 (7-52) U/L Alkaline Phosphatase 72 (34-104) U/L Troponin I High Sens 13.6 (0-14) pg/ml B-Natriuretic Peptide (0-100) pg/ml Total Protein 6.9 (6.0-8.3) gm/dl Albumin 4.0 (3.4-5.0) gm/dl Globulin 2.9 (2.5-4.0) gm/dl Albumin/Globulin Ratio 1.4 (0.9-2) Urine Color Urine Appearance (Clear) Urine pH (4.5-7.5) Ur Specific [place] (1.000-1.030) Urine Protein (Negative) Urine Glucose (UA) (Negative) Urine Ketones (Negative) Urine Blood (Negative) Urine Nitrite (Negative) Urine Bilirubin (Negative) Urine Urobilinogen (Negative) Ur Leukocyte Esterase (Negative) Urine WBC (Auto) (0-5) /hpf Urine RBC (Auto) (0-2) /hpf U Hyaline Cast (Auto) (0-2) /lpf U Epithel Cells (Auto) (0-2) /hpf Urine Bacteria (Auto) (None Seen) Adenovirus (PCR) Not Detected (NotDetected) B. pertussis DNA (PCR) Not Detected (NotDetected) B.parapertussis DNA PCR Not Detected (NotDetected) C. pneumoniae DNA (PCR) Not Detected (NotDetected) Coronavirus OC43 (PCR) Not Detected (NotDetected) Coronavirus HKU1 (PCR) Not Detected (NotDetected) Coronavirus 229E (PCR) Not Detected (NotDetected) SARS-CoV-2 (PCR) Not Detected (NotDetected) Coronavirus NL63 (PCR) Not Detected (NotDetected) Human Metapneumovir PCR Not Detected (NotDetected) Influenza Type A (PCR) Not Detected (NotDetected) Influenza Type B (PCR) Not Detected (NotDetected) M. pneumoniae (PCR) Not Detected (NotDetected) Parainfluenza 1 (PCR) Not Detected (NotDetected) Parainfluenza 2 (PCR) Not Detected (NotDetected) Parainfluenza 3 (PCR) Not Detected (NotDetected) Parainfluenza 4 (PCR) Not Detected (NotDetected) RSV (PCR) Not Detected (NotDetected) Entero/Rhino (PCR) Not Detected (NotDetected) 11/19/23 11/19/23 11/19/23 Range/Units 21:33 20:40 18:26 WBC (4.8-10.8) K/ul RBC (4.20-5.40) M/uL Hgb (12.0-16.0) g/dl Hct (37.0-47.0) % MCV (80.0-100.0) fL MCH (25.0-34.0) pg MCHC (32.0-36.0) g/dL RDW Std Deviation (36.4-46.3) fL RDW Coeff of Jese (11.5-14.5) % Plt Count (130-400) K/uL MPV (9.4-12.4) fL Immature Gran % (Auto) % Neut % (Auto) % Lymph % (Auto) % [place] % (Auto) % Eos % (Auto) % Baso % (Auto) % Neut # (Auto) (1.40-6.50) K/uL Lymph # (Auto) (1.20-3.40) K/uL [place] # (Auto) (0.11-0.59) K/uL Eos # (Auto) (0.00-0.50) K/uL Baso # (Auto) (0.00-0.20) K/uL Immature Gran # (Auto) (0.01-0.20) K/uL PT (9.0-12.0) Seconds INR (0.9-1.1) Sodium (136-145) mmol/L Potassium (3.5-5.1) mmol/L Chloride (98-107) mmol/L Carbon Dioxide (21-32) mmol/L Anion Gap (3-11) BUN (6-23) mg/dl Creatinine (0.6-1.2) mg/dl Est Cr Clr Drug Dosing ml/min Est GFR ( Amer) ml/min Est GFR (Non-Af Amer) ml/min BUN/Creatinine Ratio (10-20) Glucose (70-99(Fasting)) mg/dl POC Glucose 132 H (70-99) mg/dl Calcium (8.6-10.3) mg/dl Magnesium (1.7-2.4) mg/dl Total Bilirubin (0.2-1.0) mg/dl AST (13-39) U/L ALT (7-52) U/L Alkaline Phosphatase (34-104) U/L Troponin I High Sens 13.1 (0-14) pg/ml B-Natriuretic Peptide (0-100) pg/ml Total Protein (6.0-8.3) gm/dl Albumin (3.4-5.0) gm/dl Globulin (2.5-4.0) gm/dl Albumin/Globulin Ratio (0.9-2) Urine Color Yellow Urine Appearance Clear (Clear) Urine pH 7.5 (4.5-7.5) Ur Specific [place] 1.006 (1.000-1.030) Urine Protein Negative (Negative) Urine Glucose (UA) Negative (Negative) Urine Ketones Trace H (Negative) Urine Blood Negative (Negative) Urine Nitrite Negative (Negative) Urine Bilirubin Negative (Negative) Urine Urobilinogen Negative (Negative) Ur Leukocyte Esterase Trace H (Negative) Urine WBC (Auto) 0-5 (0-5) /hpf Urine RBC (Auto) 0-2 (0-2) /hpf U Hyaline Cast (Auto) 0-2 (0-2) /lpf U Epithel Cells (Auto) 0-2 (0-2) /hpf Urine Bacteria (Auto) None Seen (None Seen) Adenovirus (PCR) (NotDetected) B. pertussis DNA (PCR) (NotDetected) B.parapertussis DNA PCR (NotDetected) C. pneumoniae DNA (PCR) (NotDetected) Coronavirus OC43 (PCR) (NotDetected) Coronavirus HKU1 (PCR) (NotDetected) Coronavirus 229E (PCR) (NotDetected) SARS-CoV-2 (PCR) (NotDetected) Coronavirus NL63 (PCR) (NotDetected) Human Metapneumovir PCR (NotDetected) Influenza Type A (PCR) (NotDetected) Influenza Type B (PCR) (NotDetected) M. pneumoniae (PCR) (NotDetected) Parainfluenza 1 (PCR) (NotDetected) Parainfluenza 2 (PCR) (NotDetected) Parainfluenza 3 (PCR) (NotDetected) Parainfluenza 4 (PCR) (NotDetected) RSV (PCR) (NotDetected) Entero/Rhino (PCR) (NotDetected) 11/19/23 Range/Units 16:36 WBC 6.39 (4.8-10.8) K/ul RBC 5.01 (4.20-5.40) M/uL Hgb 14.8 (12.0-16.0) g/dl Hct 44.2 (37.0-47.0) % MCV 88.2 (80.0-100.0) fL MCH 29.5 (25.0-34.0) pg MCHC 33.5 (32.0-36.0) g/dL RDW Std Deviation 43.1 (36.4-46.3) fL RDW Coeff of Jese 13.3 (11.5-14.5) % Plt Count 189 (130-400) K/uL MPV 11.8 (9.4-12.4) fL Immature Gran % (Auto) 0.3 % Neut % (Auto) 67.8 % Lymph % (Auto) 18.6 % [place] % (Auto) 11.1 % Eos % (Auto) 1.4 % Baso % (Auto) 0.8 % Neut # (Auto) 4.33 (1.40-6.50) K/uL Lymph # (Auto) 1.19 L (1.20-3.40) K/uL [place] # (Auto) 0.71 H (0.11-0.59) K/uL Eos # (Auto) 0.09 (0.00-0.50) K/uL Baso # (Auto) 0.05 (0.00-0.20) K/uL Immature Gran # (Auto) 0.02 (0.01-0.20) K/uL PT (9.0-12.0) Seconds INR (0.9-1.1) Sodium 142 (136-145) mmol/L Potassium 3.0 L (3.5-5.1) mmol/L Chloride 101 (98-107) mmol/L Carbon Dioxide 28 (21-32) mmol/L Anion Gap 13 H (3-11) BUN 31 H (6-23) mg/dl Creatinine 0.95 (0.6-1.2) mg/dl Est Cr Clr Drug Dosing 66.7 ml/min Est GFR ( Amer) 62.4 ml/min Est GFR (Non-Af Amer) 53.9 ml/min BUN/Creatinine Ratio 32.6 H (10-20) Glucose 116 H (70-99(Fasting)) mg/dl POC Glucose (70-99) mg/dl Calcium 10.1 (8.6-10.3) mg/dl Magnesium 1.6 L (1.7-2.4) mg/dl Total Bilirubin 1.0 (0.2-1.0) mg/dl AST 21 (13-39) U/L ALT 17 (7-52) U/L Alkaline Phosphatase 76 (34-104) U/L Troponin I High Sens 9.7 (0-14) pg/ml B-Natriuretic Peptide 243 H (0-100) pg/ml Total Protein 7.1 (6.0-8.3) gm/dl Albumin 4.4 (3.4-5.0) gm/dl Globulin 2.7 (2.5-4.0) gm/dl Albumin/Globulin Ratio 1.6 (0.9-2) Urine Color Urine Appearance (Clear) Urine pH (4.5-7.5) Ur Specific [place] (1.000-1.030) Urine Protein (Negative) Urine Glucose (UA) (Negative) Urine Ketones (Negative) Urine Blood (Negative) Urine Nitrite (Negative) Urine Bilirubin (Negative) Urine Urobilinogen (Negative) Ur Leukocyte Esterase (Negative) Urine WBC (Auto) (0-5) /hpf Urine RBC (Auto) (0-2) /hpf U Hyaline Cast (Auto) (0-2) /lpf U Epithel Cells (Auto) (0-2) /hpf Urine Bacteria (Auto) (None Seen) Adenovirus (PCR) (NotDetected) B. pertussis DNA (PCR) (NotDetected) B.parapertussis DNA PCR (NotDetected) C. pneumoniae DNA (PCR) (NotDetected) Coronavirus OC43 (PCR) (NotDetected) Coronavirus HKU1 (PCR) (NotDetected) Coronavirus 229E (PCR) (NotDetected) SARS-CoV-2 (PCR) (NotDetected) Coronavirus NL63 (PCR) (NotDetected) Human Metapneumovir PCR (NotDetected) Influenza Type A (PCR) (NotDetected) Influenza Type B (PCR) (NotDetected) M. pneumoniae (PCR) (NotDetected) Parainfluenza 1 (PCR) (NotDetected) Parainfluenza 2 (PCR) (NotDetected) Parainfluenza 3 (PCR) (NotDetected) Parainfluenza 4 (PCR) (NotDetected) RSV (PCR) (NotDetected) Entero/Rhino (PCR) (NotDetected) Diagnostic Findings Chest X-Ray 11/19/23 16:21 XR chest 1V portable HISTORY: Dyspnea COMPARISON: None. FINDINGS: No focal lung consolidations to suggest pneumonia. No evidence for pulmonary edema. Mild interstitial thickening which is likely chronic. The cardiac silhouette is mildly enlarged. There are calcifications within the aortic knob. No pleural effusions. No pneumothorax. IMPRESSION: Mild cardiomegaly. Otherwise, no acute process within the chest. ACT 112: Negative or not required by law. Electronically signed by: Christofer Titus M.D. 11/19/2023 4:48 PM Chest X-Ray 11/20/23 09:02 SINGLE VIEW CHEST CLINICAL HISTORY: Follow-up chest congestion. FINDINGS: An AP, portable, upright chest radiograph is compared to study dated 11/19/2023. The heart is enlarged noting atherosclerotic calcification of the thoracic aorta. The pulmonary vasculature is noncongested. Chronic interstitial thickening is similar to previous. There is bibasilar scarring/atelectasis. The lungs and pleural spaces are otherwise clear. No pneumothorax is seen. The skeletal structures are osteopenic. The bony thorax is grossly intact. IMPRESSION: Cardiomegaly with no acute cardiopulmonary abnormality identified. ACT 112: Negative or not required by law. Electronically signed by: Arron Lopez M.D. 11/20/2023 9:58 AM PG Care Time/CCT Total # of Minutes Spent Total Time Spent with Patient: Total time spent is greater than 50% in coordination of care (as documented) at patient's floor/unit and/or counseling patient: Coding Level of Care Code 75850 SUB INP/OBS CARE 3/50MIN Diagnoses REEDER (dyspnea on exertion) R06.09 Atrial fibrillation I48.91 Hypokalemia E87.6 Chest pressure R07.89 Dilated cardiomyopathy I42.0 Cardiomyopathy type: dilated High cholesterol E78.00 Diabetes mellitus, type 2 E11.9 (5) Cardiomyopathy Cardiomyopathy type: dilated Qualified Code(s): I42.0 - Dilated cardiomyopathy
[2023-11-20] MEDS: POTASSIUM CHLORIDE CRTAB 20 MEQ TABCR PO STA (09:29)
[2023-11-20] MEDS: ATENOLOL 50 MG TABLET PO SCH (09:30)
[2023-11-20] MEDS: lisinopril 10 MG TAB PO SCH (09:30)
[2023-11-20] MEDS: FUROSEMIDE 40 MG TAB PO SCH (09:30)
[2023-11-20] MEDS: ATORVASTATIN 40 MG TAB PO SCH (09:30)
--- NOTE | 2023-11-20 09:40 | Cardiology Consultation ---
Date of Consultation November 20, 2023 Assessment & Plan (1) CHF (congestive heart failure): (2) Cardiomyopathy: (3) Atrial fibrillation: (4) Anticoagulant long-term use: (5) HBP (high blood pressure): (6) Aortic stenosis: (7) Mitral regurgitation: Plan 1. Congestive heart failure: Her congestive heart failure appears to be fundamentally on the basis of worsening left ventricular function. I believe this has been somewhat gradual but exacerbated recently. I would continue with diuresis. 2. Cardiomyopathy: She has had a progressive cardiomyopathy for some time, it has worsened recently. She is not on much in the way of heart failure medications and we will have to correct that, but we do not have a clear cause for her cardiomyopathy. It is certainly not rate related although atrial fibrillation itself can lead to cardiomyopathy due to hemodynamic inefficiency, it does not appear ischemic although we may have to investigate that. We will need to evaluate her for other causes of cardiomyopathy. In the meantime I am going to change her medications, I would like to switch her lisinopril to Entresto and I am going to discontinue atenolol and start carvedilol. We should consider Jardiance and Farxiga and I think spironolactone would be a good idea given her hypokalemia. All of these changes do not need to be done in the hospital. 3. Atrial fibrillation: Her heart rate has been gradually dropping over the last several years based on our office measurements and I discontinued diltiazem, on recent Holter monitoring her heart rate appears well-controlled on beta-blockade alone. With changing to carvedilol this may change, however we can evaluate that as an outpatient. 4. Anticoagulation: She is doing well on Eliquis, she is on the correct dose based on her weight and kidney function and I recommended she continue. 5. High blood pressure: Her blood pressure is typically fairly well-controlled, discontinuing diltiazem may have resulted in an increase. I am hopeful that titrating beta-blockade and ARB therapy (carvedilol and Entresto) will control her blood pressure. 6. Aortic stenosis: She had mild aortic stenosis but that has not progressed to the point where this should cause her heart failure exacerbation. 7. Mitral regurgitation: She had moderate to severe mitral regurgitation on her last echo, this could also contribute to her symptoms and her left ventricular dilatation but with the degree that she has it generally does not cause a decrease in left ventricular function. History of Present Illness Reason for Consultation: CHF Attending Physician: Fabiana Hill MD History of Present Illness This is an 88-year-old woman who is still very alert and active. Per her own records she had a cardiac catheterization on August 18, 2000 at [facility], I am not sure exactly why that was done but she apparently had medical grade coronary artery disease and no intervention required. Subsequently she had a stress test on November 30, 2005 which she believes was not abnormal. I do not have records of either of these things. More recently she was hospitalized at [facility] from October 18, 2019 through October 20, 2019. This admission was prompted by about 3 days of progressive shortness of breath and leg swelling. I do have those records to review, it appears that she presented in heart failure and echocardiography showed a left ventricular ejection fraction of 50 to 55% and according to the hospital records she presented in atrial fibrillation but then converted to sinus rhythm. I do however have an electrocardiogram from October 20, 2019 where she remains in atrial fibrillation, that was the day of her discharge. The rhythm is fairly regular and perhaps it was mistaken or she converted back to sinus rhythm after that electrocardiogram was taken. Studies during that hospitalization included a chest CT which did not show pulmonary emboli, peripheral venous ultrasound which did not show evidence of clot. She was started on Eliquis and furosemide, from the discharge summary it appears that she was already on atenolol and diltiazem which were continued. She was in atrial fibrillation here, and with uncertainty as to the duration of the atrial fibrillation and the possibility that it prompted her presentation with heart failure we did perform cardioversion on February 19, 2020 successfully converting her to sinus rhythm. She initially was feeling very well following the cardioversion, from her history it was not clear to me that she actually felt better than before the cardioversion but she was doing well. Then in very early March 2020 she began to feel very poorly, she started taking her blood pressure then (she had not taken it before that) and she brought in a record showing that her blood pressure was in the range of 102-118 systolic and 54-64 diastolic and her heart rate was in the 60s to 80s. She felt that she had very poor exercise ability, she was feeling lightheaded and just in general feeling poorly until a few days before her March 26, 2020 office visit at which time her blood pressure had increased with little change in her heart rate and she was feeling much better. Her weight throughout this time was 182 to 185 pounds, she had not had difficulty with fluid retention. She had no orthopnea or PND and no exertional chest discomfort. She was found to be in atrial fibrillation at that office visit. We discussed various options and since she was feeling very well by that time (making it unclear that her prior symptoms were due to atrial fibrillation) we elected to leave her in atrial fibrillation and continue anticoagulation. A Holter monitor done during atrial fibrillation on July 01, 2020 and showed atrial fibrillation throughout with a heart rate ranged from 46 to 104 bpm with an average of 78 bpm. A 24-hour Holter monitor was done on July 01, 2021, this showed atrial fibrillation throughout with a heart rate ranged from 37 to 80 bpm and an average of 66. An echocardiogram was done on June 18, 2021 and showed low normal left ventricular systolic function with mild concentric left ventricular hypertrophy, as well as moderate mitral regurgitation. This was felt to be similar to the echocardiogram in October 2019 done at [facility]. In June 2022 she broke her left hip, the note I have is from the rehab discharge and it states that she had a ground-level fall, she tells me that she did not fall and that her hip spontaneously broke. She indicates she does not recall a fall although that seems the most likely cause. She is recovering relatively well from hip surgery on June 29, 2022 and ambulates now without a cane or walker. An echocardiogram done February 18, 2023 shows borderline left ventricular dilatation with mild left ventricular systolic dysfunction ejection fraction 40 to 45%. The hypokinesis is global and she has mild concentric left ventricular hypertrophy. She has mild aortic stenosis and moderate to severe mitral regurgitation. Her aortic valve area calculates to 1.5 to 1.7 cm. She had a 3-day Holter monitor performed from January 29, 2023 through February 01, 2023, her heart rate ranged from 37 to 95 bpm with an average of 61 and she was in atrial fibrillation throughout. She did have a number of pauses but the longest was less than 2.5 seconds. Her heart rate seems somewhat slow on her rate controlling medications (diltiazem and atenolol) so I discontinued the diltiazem on September 29, 2023. She wore a 3-day Holter monitor starting on that day, during the first day (still under diltiazem effect) her average heart rate visually was around 60 bpm, after that with washout of diltiazem the average heart rate did increase and looks more appropriate and not too fast. Her heart rate ranged from 40 to 111 bpm with an average of 67 with a 40 bpm being while she was still on diltiazem. She did have a number of pauses, the longest being the first day which was still under diltiazem effect. These became less frequent over the next 2 days and occurred only at night following discontinuation of diltiazem. This is indicative of better heart rate control off of diltiazem. I also repeated her echocardiogram on October 26, 2023. This showed moderate left ventricular dysfunction with ejection fraction of 30 to 35% with moderate global hypokinesis and a borderline dilated left ventricle at 4.8 cm. She did have mild aortic regurgitation and moderate mitral regurgitation but that would not explain the left ventricular dysfunction. Compared to February 2023 the ejection fraction has declined, the left ventricular size increased slightly by measurements although that may not be significant. Mitral regurgitation did not worsen. At that time she was on lisinopril 10 mg daily and atenolol 50 mg daily for her heart failure medications. She presented to the emergency room on November 19, 2023 with worsening shortness of breath. She was somewhat hypoxic at rest and responded to oxygen, her BNP was elevated. She appeared to be in congestive heart failure and she was treated with intravenous Lasix. Troponin measurements x 3 were negative for injury, her electrocardiogram showed atrial fibrillation with no evidence of ischemia. She is feeling much better with her initial diuresis. Her symptoms were fairly gradual, but got quite a bit worse over the last several days. She was trying to hold out for her appointment this upcoming week but felt that she needed to come in. She did not have chest discomfort, it was mostly shortness of breath, orthopnea and fatigue. Allergies Allergy/AdvReac Type Severity Reaction Status Date / Time lidocaine Allergy Intermediate rash, face Verified 11/19/23 19:14 got puffy Home Medications Medication Instructions Recorded Confirmed Type atorvastatin 40 mg tablet 40 mg PO DAILY 12/25/19 11/19/23 History glucosamine HCl 1,500 mg tablet 3,000 mg PO DAILY 12/25/19 11/19/23 History levothyroxine 88 mcg capsule 88 mcg PO DAILY 12/25/19 11/19/23 History apixaban 5 mg tablet (Eliquis) 5 mg PO BID 02/08/20 11/19/23 History cholecalciferol (vitamin D3) 25 1,000 units PO DAILY 02/08/20 11/19/23 History mcg (1,000 unit) capsule furosemide 40 mg tablet 40 mg PO DAILY 02/08/20 11/19/23 History icosapent ethyl 1 gram capsule 1 gm PO DAILY 02/08/20 11/19/23 History (Vascepa) metformin 500 mg tablet 500 mg PO BID 02/08/20 11/19/23 History multivitamin 1 tab PO DAILY 02/08/20 11/19/23 History potassium chloride 20 mEq 20 meq PO DAILY 02/08/20 11/19/23 History tablet,extended release vitamin E 268 mg (400 unit) capsule 400 unit PO DAILY 02/15/20 11/19/23 History atenolol 50 mg tablet 50 mg PO DAILY #90 tabs 06/25/20 11/19/23 Rx lisinopril 10 mg tablet 10 mg PO DAILY 06/25/20 11/19/23 History ascorbic acid (vitamin C) 500 mg 1,000 mg PO DAILY 01/08/22 11/19/23 History capsule Benefiber Tab 1 tab PO DIRECTED PRN 11/19/23 11/19/23 History Constipation acetaminophen 500 mg tablet 1,000 mg PO Q6H PRN Pain 11/19/23 11/19/23 History (Tylenol Extra Strength) Patient History Medical History Overactive bladder Diabetes mellitus, type 2 Per 12/27/19 PCP note- last Hgb A1C 7.1 Hypothyroidism Basal cell carcinoma of nose Congestive heart failure Admitted October 2019 for diastolic CHF at [facility]- per cardio note 02/08/20- CHF now corrected with meds and patient feels well Atrial fibrillation reason for scheduled cardioversion, reason for eliquis Benign thyroid cyst Bowel obstruction High cholesterol Surgical History History of bilateral tubal ligation History of dilatation and curettage History of varicose vein ligation and stripping bilt History of colonoscopy History of esophagogastroduodenoscopy (EGD) History of Mohs micrographic surgery for skin cancer History of tooth extraction all teeth History of lumpectomy of right breast benign S/P thyroid biopsy History of thyroid surgery benign lump removal History of bilateral cataract extraction History of cardiac cath 2000 @ [facility] d/t SOB--no stents placed 2005 @ [facility]--no stents placed H/O exploratory laparotomy Family History Mother Diabetes Heart disease Cancer Sister Diabetes Heart disease Brother Cancer Hypertension Other No family history of adverse response to anesthesia Social History Smoking Status: Never smoker Second Hand Exposure: No; Do You Dip or Chew Tobacco: No; Hx Alcohol Use: No Hx Substance Use: No Preferred Language: Bengali Communication Ability: Effective Health And Social Care Teacher Required: No Beliefs That Will Affect Care: None marital status: Current Living Situation: Alone current occupational status: retired Feels Safe at Home: Yes Safety Concerns: Feels Safe At This Time Assistive Devices: Cane, Walker and Other Review of Systems Review of Systems: All systems reviewed & are unremarkable except as noted in HPI & below Physical Exam Physical Exam: Constitutional: Alert, cooperative and in no distress. HEENT: Unremarkable Neck: No jugular venous distention, carotid pulses are irregular but otherwise normal and equal bilaterally without bruits. Pulmonary: Clear to auscultation bilaterally. Cardiac: Irregular rhythm with a soft holosystolic murmur murmur, no gallop or rub. Abdomen: Soft, nontender with normal bowel sounds. Extremities: No edema. Neurologic: No focal findings. Skin: No rash, ecchymoses or petechiae. Results & Data Vital Signs (Past 12 Hours) Vital Signs Temp Pulse Pulse Pulse Resp BP BP 11/20/23 07:59 36.3 C L 58 L 18 162/72 H 11/20/23 04:04 36.5 C 70 16 152/080 H 11/20/23 01:13 36.5 C 76 24 175/83 H 11/20/23 01:06 11/20/23 00:21 36.5 C 76 24 175/83 H 11/19/23 23:00 72 14 150/75 H 11/19/23 22:30 70 17 126/70 11/19/23 22:00 141/72 H 11/19/23 22:00 68 14 Pulse Ox O2 Del Method 11/20/23 07:59 98 Room Air 11/20/23 04:04 95 Room Air 11/20/23 01:13 97 Room Air 11/20/23 01:06 Room Air 11/20/23 00:21 97 Room Air 11/19/23 23:00 96 11/19/23 22:30 95 11/19/23 22:00 11/19/23 22:00 94 Laboratory Results Cardiac Enzymes 11/19/23 11/19/23 11/20/23 Range/Units 16:36 20:40 02:06 AST 21 19 (13-39) U/L Troponin I High Sens 9.7 13.1 13.6 (0-14) pg/ml B-Natriuretic Peptide 243 H (0-100) pg/ml 11/20/23 Range/Units 08:00 AST (13-39) U/L Troponin I High Sens 11.7 (0-14) pg/ml B-Natriuretic Peptide (0-100) pg/ml Coagulation 11/19/23 11/20/23 Range/Units 16:36 02:06 PT 12.1 H (9.0-12.0) Seconds B-Natriuretic Peptide 243 H (0-100) pg/ml CBC 11/19/23 11/20/23 Range/Units 16:36 02:06 WBC 6.39 6.68 (4.8-10.8) K/ul RBC 5.01 4.91 (4.20-5.40) M/uL Hgb 14.8 14.5 (12.0-16.0) g/dl Hct 44.2 43.8 (37.0-47.0) % Plt Count 189 175 (130-400) K/uL Neut # (Auto) 4.33 4.38 (1.40-6.50) K/uL Lymph # (Auto) 1.19 L 1.34 (1.20-3.40) K/uL [place] # (Auto) 0.71 H 0.79 H (0.11-0.59) K/uL Eos # (Auto) 0.09 0.11 (0.00-0.50) K/uL Baso # (Auto) 0.05 0.04 (0.00-0.20) K/uL Comprehensive Metabolic Panel 11/19/23 11/19/23 11/20/23 Range/Units 16:36 22:36 02:06 Sodium 142 140 141 (136-145) mmol/L Potassium 3.0 L 3.4 L 3.5 (3.5-5.1) mmol/L Chloride 101 104 102 (98-107) mmol/L Carbon Dioxide 28 27 29 (21-32) mmol/L BUN 31 H 28 H 28 H (6-23) mg/dl Creatinine 0.95 0.89 0.96 (0.6-1.2) mg/dl Glucose 116 H 140 H 164 H (70-99(Fasting)) mg/dl Calcium 10.1 9.8 9.8 (8.6-10.3) mg/dl AST 21 19 (13-39) U/L ALT 17 14 (7-52) U/L Alkaline Phosphatase 76 72 (34-104) U/L Total Protein 7.1 6.9 (6.0-8.3) gm/dl Albumin 4.4 4.0 (3.4-5.0) gm/dl Intake and Output 11/19/23 11/20/23 11/20/23 22:59 06:59 14:59 Intake Total 100 / 300 200 / 300 Output Total 350 / 350 Balance 100 / -50 -150 / -50 Intake: IV 100 / 300 200 / 300 Magnesium Sulfate / D5w 1 gm In 100 / 200 100 / 200 100 ml @ 50 mls/hr IV Q2H [facility] Rx#:[id number] Potassium Chloride / Wtr 10 meq 100 / 100 In 100 ml @ 100 mls/hr IV ONE ONE Rx#:[id number] Output: Urine Amount (Catheter) 350 / 350 External 350 / 350 Other: Weight 75.9 kg 82.8 kg Weight Measurement Method Built in [facility] Built in [facility] Diagnostic Findings Telemetry: Atrial fibrillation, heart rate around 70 bpm PG Care Time/CCT Total # of Minutes Spent Total Time Spent with Patient: Total time spent is greater than 50% in coordination of care (as documented) at patient's floor/unit and/or counseling patient: Coding Level of Care Code 98219 INT INP/OBS CARE Diagnoses CHF (congestive heart failure) I50.9 Dilated cardiomyopathy I42.0 Cardiomyopathy type: dilated Atrial fibrillation I48.91 Anticoagulant long-term use Z79.01 Essential hypertension I10 Hypertension type: essential hypertension Aortic valve stenosis, etiology of cardiac valve disease unspecified I35.0 Cardiac valve disease etiology: etiology unspecified Mitral valve insufficiency, unspecified etiology I34.0 Cardiac valve disease etiology: etiology unspecified (2) Cardiomyopathy Cardiomyopathy type: dilated Qualified Code(s): I42.0 - Dilated cardiomyopathy (5) HBP (high blood pressure) Hypertension type: essential hypertension Qualified Code(s): I10 - Essential (primary) hypertension (6) Aortic stenosis Cardiac valve disease etiology: etiology unspecified Qualified Code(s): I35.0 - Nonrheumatic aortic (valve) stenosis (7) Mitral regurgitation Cardiac valve disease etiology: etiology unspecified Qualified Code(s): I34.0 - Nonrheumatic mitral (valve) insufficiency
--- NOTE | 2023-11-20 09:59 | XRay Report ---
SINGLE VIEW CHEST CLINICAL HISTORY: Follow-up chest congestion. FINDINGS: An AP, portable, upright chest radiograph is compared to study dated 11/19/2023. The heart is enlarged noting atherosclerotic calcification of the thoracic aorta. The pulmonary vasculature is no ncongested. Chronic interstitial thickening is similar to previous. There is bibasilar scarring/atele ctasis. The lungs and pleural spaces are otherwise clear. No pneumothorax is seen. The skeletal struc tures are osteopenic. The bony thorax is grossly intact. IMPRESSION: Cardiomegaly with no acute cardiopulmonary abnormality identified. ACT 112: Negative or not required by law. Electronically signed by: Arron Lopez M.D. 11/20/2023 9:58 AM
[2023-11-20] MEDS: SPIRONOLACTONE 25 MG TAB PO SCH (13:23)
[2023-11-20] MEDS: carvediloL 12.5 MG TAB PO SCH (17:43)
[2023-11-21] MEDS: ACETAMINOPHEN 500 MG TAB PO PRN (05:32)
[2023-11-21 05:54] LABS: Basophils # (auto) 0.04 K/uL (0.00-0.20); Basophils % (auto) 0.6 %; Eosinophils # (auto) 0.14 K/uL (0.00-0.50); Eosinophils % (auto) 2.1 %; Hematocrit (blood only) 42.6 % (37.0-47.0); Hemoglobin 14.4 g/dl (12.0-16.0); Immature Granulocytes # (auto) 0.01 K/uL (0.01-0.20); Immature Granulocytes % (auto) 0.2 %; Lymphocytes # (auto) 1.28 K/uL (1.20-3.40); Lymphocytes % (auto) 19.5 %; Mean Corpuscular Hemoglobin 30.3 pg (25.0-34.0); Mean Corpuscular Hgb Conc 33.8 g/dL (32.0-36.0); Mean Corpuscular Volume 89.7 fL (80.0-100.0); Mean Platelet Volume 11.8 fL (9.4-12.4); Monocytes # (auto) 0.62 K/uL (0.11-0.59); Monocytes % (auto) 9.5 %; Neutrophils # (auto) 4.47 K/uL (1.40-6.50); Neutrophils % (auto) 68.1 %; Platelet Count 181 K/uL (130-400); RDW Coefficient of Variation 13.4 % (11.5-14.5); RDW Standard Deviation 44.1 fL (36.4-46.3); Red Blood Count 4.75 M/uL (4.20-5.40); White Blood Count 6.56 K/ul (4.8-10.8)
[2023-11-21 06:03] LABS: INR 1.1 (0.9-1.1); Prothrombin Time 11.8 Seconds (9.0-12.0)
[2023-11-21 06:11] LABS: Albumin Globulin Ratio 1.5 (0.9-2); BUN Creatinine Ratio 30.6 (10-20); Calcium 9.1 mg/dl (8.6-10.3); Creatinine Clr Calc Pharmacy 34.8 ml/min; Est GFR (African American) 46.6 ml/min; Est GFR (Non-African American) 40.2 ml/min; Globulin 2.6 gm/dl (2.5-4.0); Magnesium 1.9 mg/dl (1.7-2.4); Total Protein 6.6 gm/dl (6.0-8.3)
[2023-11-21 07:17] LABS: Estimated Average Glucose 166 mg/dl; Hemoglobin A1C 7.4 % (4.5-5.6)
--- NOTE | 2023-11-21 07:48 | Hospitalist Progress Note ---
Date of Service November 21, 2023 Assessment & Plan (1) REEDER (dyspnea on exertion): Plan: Presented to the ED with one week of increased REEDER and associated substernal chest pressure - BNP is mildly elevated at 243, initial high sen trop is WNL, and ECg shows afib without acute ST segment or T-wave changes. Low susp for PE given on eliquis/continued and not missed dosing. Was provided 324mg ASA Nitropaste ordered to also help w/ BP Given dose IV lasix in ER, continued on home 40mg PO daily 11/20 Suspect acute on chronic heart failure with newly reduced ejection fraction this past month in setting of underlying afib and hypomagnesemia/hypokalemia on admission Most recent cards note 09/28 with patient HR gradually dropping over past several year, had her diltiazem discontinued and hotler monitor ordered to see difference on/off the diltiazem. Also noting aortic stenosis/MR, prior EF 40-45% --> with repeat ECHO 10/26/23 noting LV systolic function moderately reduced to 30-35%, mild AR/moderate MR Holter monitor report in system with HR varying 40-111bpm, 886 PVCs and 1 ventricular run of 3 beats at 197bpm. 161 pauses over 2 seconds with longest 2.4 seconds, occurring primarily at n ight after midnight Did have hypomagnesemia/hypokalemia on admission, in setting of afib likely better to be closer to 2, 4 respectively. K/mag stable at present time. 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 Did get dose 40meq po kcl on 11/19 to get k closer to 4 w/ afib and hypokalemia on admission with her afib/rvr prior to starting spirnolactone and is on 20meq at baseline which will likely need to be stopped pending K w/ med changes including addition of spironolactone and starting entresto Lisinopril dc'd (last dose 11/19) Planned start entresto this evening however given diuretics/bump in Cr and spoke with cards who agreed to hold off further lasix for now and re-time ENtresto to start tomorrow Appreciate ongoing assistance/recs from cardiology Monitor labs/tele REMOVED nitro paste still in place on exam as discontinued 11/19 given no CP/negative troponins Consideration for SGLT2 inhibitor in follow up outpatient (2) Atrial fibrillation: Plan: remains in afib, rates controlled but had been dropping per outpt note and recently dc'd her diltiazem with increase atenolol --> carvedilol as above, rates appear controlled today Continued on home eliquis, appropriately dosed Continued telemetry monitoring and continue to monitor electrolytes (3) Hypokalemia: Plan: Replaced/resolved. Did give 40meq PO Kcl on 11/19 to keep closer to 4 w/ her afib but holding off further given now on spironolactone and k 4.0 on am labs --> is on 20meq PO daily at baseline but depending repeat levels w/ med changes this may need to be held at discharge Mag also low and replacement ordered and stable on am labs at 1.9 and will monitor but if lower/similar or issues can give additoinal IV. Will give dose mag-oxide x 1 in meantime (4) Chest pressure: Plan: No further pressure reported, just continued issues w/ exertional shortness of breath Troponin levels NOT elevated See REEDER plan (5) Cardiomyopathy: Plan: See above Will need f/u eval for cardiomyopathy but no need for urgent cath at this time and DO NOT suspect unstable angina at this time. Dc'd nitropaste and monitoring (6) High cholesterol: Plan: Continue statin (7) Diabetes mellitus, type 2: Plan: No A1c in system and was added to AM labs --> A1c 7.4 On metformin 500mg BID at baseline Holding home metformin at this time, continue BSG AC/HS, sliding scale for now ?consideration for SGLT2 in f/u cards/CHF clinic Plan continued inpatient stay for medication adjustments with assistance from cardiology pt consult pending to ensure no needs at dc Admission and Anticipated Discharge Date Admission Date: November 19, 2023 Subjective Evaluated around lunch, sitting up in the chair eating lunch. Appears stable/improved. No CP but has some breathlessness/shortness of breath with ambulation. BP borderline but denies lightheadedness/dizziness. On exam, still with nitro paste in place to her left chest despite discontinuing/asking nurse to stop such. I removed this and will monitor BP. Discussed changing entresto to tomorrow to prevent drop in BP and holding further lasix for now. Good appetite, no abdominal pain or nausea. Questions/concerns addressed at this time. Physical Exam Physical Exam: Constitutional: 88 yo female sitting up in bed reading paper, NAD Head atraumatic, normocephalic, mmm, no significant JVD CHest: nitropaste to LEFT chest in place -- I REMOVED THIS TODAY, notified nursing still in place Resp: diminished in the bases but no obvious w/c/r, on room air 97% CV: irregularly irregular, rates 50-60s frequent PVcs on monitor, 1+ b/l LE edema, calves nontender GI: +BS, soft/NT : no albright MSK/Neuro/Psych: alert/oriented, pleasant and cooperative with exam, answering questions appropriately, following commands Results & Data Results & Data Vital Signs (Past 12 Hours) Vital Signs Temp Pulse Pulse Resp BP Pulse Ox O2 Del Method 11/21/23 03:36 36.4 C L 71 18 111/69 96 Room Air 11/20/23 23:29 36.6 C 74 16 130/74 93 Room Air 11/20/23 22:01 69 11/20/23 20:04 36.8 C 82 18 135/75 92 Room Air Laboratory Results 11/21/23 11/21/23 11/21/23 Range/Units 12:26 08:00 05:33 WBC 6.56 (4.8-10.8) K/ul RBC 4.75 (4.20-5.40) M/uL Hgb 14.4 (12.0-16.0) g/dl Hct 42.6 (37.0-47.0) % MCV 89.7 (80.0-100.0) fL MCH 30.3 (25.0-34.0) pg MCHC 33.8 (32.0-36.0) g/dL RDW Std Deviation 44.1 (36.4-46.3) fL RDW Coeff of Jese 13.4 (11.5-14.5) % Plt Count 181 (130-400) K/uL MPV 11.8 (9.4-12.4) fL Immature Gran % (Auto) 0.2 % Neut % (Auto) 68.1 % Lymph % (Auto) 19.5 % Tate % (Auto) 9.5 % Eos % (Auto) 2.1 % Baso % (Auto) 0.6 % Neut # (Auto) 4.47 (1.40-6.50) K/uL Lymph # (Auto) 1.28 (1.20-3.40) K/uL Tate # (Auto) 0.62 H (0.11-0.59) K/uL Eos # (Auto) 0.14 (0.00-0.50) K/uL Baso # (Auto) 0.04 (0.00-0.20) K/uL Immature Gran # (Auto) 0.01 (0.01-0.20) K/uL PT 11.8 (9.0-12.0) Seconds INR 1.1 (0.9-1.1) Sodium 140 (136-145) mmol/L Potassium 4.0 (3.5-5.1) mmol/L Chloride 104 (98-107) mmol/L Carbon Dioxide 26 (21-32) mmol/L Anion Gap 10 (3-11) BUN 37 H (6-23) mg/dl Creatinine 1.21 H (0.6-1.2) mg/dl Est Cr Clr Drug Dosing 34.8 ml/min Est GFR ( Amer) 46.6 ml/min Est GFR (Non-Af Amer) 40.2 ml/min BUN/Creatinine Ratio 30.6 H (10-20) Glucose 160 H (70-99(Fasting)) mg/dl POC Glucose 147 H 168 H (70-99) mg/dl Estimat Average Glucose 166 mg/dl Hemoglobin A1c 7.4 H (4.5-5.6) % Calcium 9.1 (8.6-10.3) mg/dl Magnesium 1.9 (1.7-2.4) mg/dl Total Bilirubin 1.0 (0.2-1.0) mg/dl AST 20 (13-39) U/L ALT 15 (7-52) U/L Alkaline Phosphatase 67 (34-104) U/L Total Protein 6.6 (6.0-8.3) gm/dl Albumin 4.0 (3.4-5.0) gm/dl Globulin 2.6 (2.5-4.0) gm/dl Albumin/Globulin Ratio 1.5 (0.9-2) 11/20/23 11/20/23 Range/Units 20:19 17:27 WBC (4.8-10.8) K/ul RBC (4.20-5.40) M/uL Hgb (12.0-16.0) g/dl Hct (37.0-47.0) % MCV (80.0-100.0) fL MCH (25.0-34.0) pg MCHC (32.0-36.0) g/dL RDW Std Deviation (36.4-46.3) fL RDW Coeff of Jese (11.5-14.5) % Plt Count (130-400) K/uL MPV (9.4-12.4) fL Immature Gran % (Auto) % Neut % (Auto) % Lymph % (Auto) % Tate % (Auto) % Eos % (Auto) % Baso % (Auto) % Neut # (Auto) (1.40-6.50) K/uL Lymph # (Auto) (1.20-3.40) K/uL Tate # (Auto) (0.11-0.59) K/uL Eos # (Auto) (0.00-0.50) K/uL Baso # (Auto) (0.00-0.20) K/uL Immature Gran # (Auto) (0.01-0.20) K/uL PT (9.0-12.0) Seconds INR (0.9-1.1) Sodium (136-145) mmol/L Potassium (3.5-5.1) mmol/L Chloride (98-107) mmol/L Carbon Dioxide (21-32) mmol/L Anion Gap (3-11) BUN (6-23) mg/dl Creatinine (0.6-1.2) mg/dl Est Cr Clr Drug Dosing ml/min Est GFR ( Amer) ml/min Est GFR (Non-Af Amer) ml/min BUN/Creatinine Ratio (10-20) Glucose (70-99(Fasting)) mg/dl POC Glucose 161 H 136 H (70-99) mg/dl Estimat Average Glucose mg/dl Hemoglobin A1c (4.5-5.6) % Calcium (8.6-10.3) mg/dl Magnesium (1.7-2.4) mg/dl Total Bilirubin (0.2-1.0) mg/dl AST (13-39) U/L ALT (7-52) U/L Alkaline Phosphatase (34-104) U/L Total Protein (6.0-8.3) gm/dl Albumin (3.4-5.0) gm/dl Globulin (2.5-4.0) gm/dl Albumin/Globulin Ratio (0.9-2) PG Care Time/CCT Total # of Minutes Spent Total Time Spent with Patient: Total time spent is greater than 50% in coordination of care (as documented) at patient's floor/unit and/or counseling patient: Coding Level of Care Code 78208 SUB INP/OBS CARE 3/50MIN Diagnoses REEDER (dyspnea on exertion) R06.09 Atrial fibrillation I48.91 Hypokalemia E87.6 Chest pressure R07.89 Dilated cardiomyopathy I42.0 Cardiomyopathy type: dilated High cholesterol E78.00 Diabetes mellitus, type 2 E11.9 (5) Cardiomyopathy Cardiomyopathy type: dilated Qualified Code(s): I42.0 - Dilated cardiomyopathy
--- NOTE | 2023-11-21 11:32 | Cardiology Progress Note ---
Date of Service November 21, 2023 Assessment & Plan (1) CHF (congestive heart failure): (2) Cardiomyopathy: (3) Atrial fibrillation: (4) Anticoagulant long-term use: (5) HBP (high blood pressure): (6) Aortic stenosis: (7) Mitral regurgitation: Plan 1. Congestive heart failure: Her congestive heart failure appears to be fundamentally on the basis of worsening left ventricular function. I believe this has been somewhat gradual but exacerbated recently. Her creatinine has bu mped up a bit and I suspect she is euhydrated, I will hold her Lasix although she probably already got it. 2. Cardiomyopathy: She has had a progressive cardiomyopathy for some time, it has worsened recently. She is not on much in the way of heart failure medications and we will have to correct that, but we do not have a clear cause for her cardiomyopathy. It is certainly not rate related although atrial fibrillation itself can lead to cardiomyopathy due to hemodynamic inefficiency, it does not appear ischemic although we may have to investigate that. We will need to evaluate her for other causes of cardiomyopathy. In the meantime I am going to change her medications, I would like to switch her lisinopril to Entresto, I discontinued her lisinopril starting today and we can start the E ntresto tomorrow after the appropriate washout. I did discontinue atenolol and started carvedilol yesterday and she seems to be tolerating that although her blood pressure is a bit low. We should consider Jardiance and Farxiga and I think spironolactone would be a good idea given her hypokalemia, I started spironolactone yesterday. All of these changes do not need to be done in the hospital. We will need to titrate her medications but with her blood pressure a little low I am not doing that now. 3. Atrial fibrillation: Her heart rate has been gradually dropping over the last several years based on our office measurements and I discontinued diltiazem, on recent Holter monitoring her heart rate appears well-controlled on beta-blockade alone. With changing to carvedilol her heart rate seems adequately controlled today. 4. Anticoagulation: She is doing well on Eliquis, she is on the correct dose based on her weight and kidney function and I recommended she continue. 5. High blood pressure: Her blood pressure is typically fairly well-controlled, discontinuing diltiazem may have resulted in an increase. I am hopeful that titrating beta-blockade and ARB therapy (carvedilol and Entresto) will control her blood pressure. It has mostly normalized since yesterday, although this morning is slightly low. 6. Aortic stenosis: She had mild aortic stenosis but that has not progressed to the point where this should cause her heart failure exacerbation. 7. Mitral regurgitation: She had moderate to severe mitral regurgitation on her last echo, this could also contribute to her symptoms and her left ventricular dilatation but with the degree that she has it generally does not cause a decrease in left ventricular function. Admission and Anticipated Discharge Date Admission Date: November 19, 2023 Subjective She is feeling better today. She is a little bit breathless but had been walking to the bathroom. She does not have lightheadedness or dizziness. Physical Exam Physical Exam: Constitutional: Alert, cooperative and in no distress. HEENT: Unremarkable Neck: No jugular venous distention, carotid pulses are irregular but otherwise normal and equal bilaterally without bruits. Pulmonary: Clear to auscultation bilaterally. Cardiac: Irregular rhythm with a soft holosystolic murmur murmur, no gallop or rub. Abdomen: Soft, nontender with normal bowel sounds. Extremities: No edema. Neurologic: No focal findings. Skin: No rash, ecchymoses or petechiae. Results & Data Vital Signs (Past 12 Hours) Vital Signs Temp Pulse Resp BP Pulse Ox O2 Del Method 11/21/23 10:52 36.5 C 67 18 97/62 L 95 Room Air 11/21/23 07:58 36.5 C 79 18 125/73 97 Room Air 11/21/23 03:36 36.4 C L 71 18 111/69 96 Room Air Laboratory Results Cardiac Enzymes 11/20/23 11/21/23 Range/Units 14:08 05:33 AST 20 (13-39) U/L Troponin I High Sens 10.8 (0-14) pg/ml Coagulation 11/21/23 Range/Units 05:33 PT 11.8 (9.0-12.0) Seconds CBC 11/21/23 Range/Units 05:33 WBC 6.56 (4.8-10.8) K/ul RBC 4.75 (4.20-5.40) M/uL Hgb 14.4 (12.0-16.0) g/dl Hct 42.6 (37.0-47.0) % Plt Count 181 (130-400) K/uL Neut # (Auto) 4.47 (1.40-6.50) K/uL Lymph # (Auto) 1.28 (1.20-3.40) K/uL [place] # (Auto) 0.62 H (0.11-0.59) K/uL Eos # (Auto) 0.14 (0.00-0.50) K/uL Baso # (Auto) 0.04 (0.00-0.20) K/uL Comprehensive Metabolic Panel 11/21/23 Range/Units 05:33 Sodium 140 (136-145) mmol/L Potassium 4.0 (3.5-5.1) mmol/L Chloride 104 (98-107) mmol/L Carbon Dioxide 26 (21-32) mmol/L BUN 37 H (6-23) mg/dl Creatinine 1.21 H (0.6-1.2) mg/dl Glucose 160 H (70-99(Fasting)) mg/dl Calcium 9.1 (8.6-10.3) mg/dl AST 20 (13-39) U/L ALT 15 (7-52) U/L Alkaline Phosphatase 67 (34-104) U/L Total Protein 6.6 (6.0-8.3) gm/dl Albumin 4.0 (3.4-5.0) gm/dl Intake and Output 11/20/23 11/21/23 11/21/23 22:59 06:59 14:59 Intake Total 440 / 920 Output Total 450 / 451 Balance - Intake: Oral 440 / 920 Output: Urine Amount (Catheter) 450 / 450 External 450 / 450 Other: Weight 82.8 kg Weight Measurement Method Built in [facility] Diagnostic Findings Telemetry: Atrial fibrillation, heart rate 60-70. PG Care Time/CCT Total # of Minutes Spent Total Time Spent with Patient: Total time spent is greater than 50% in coordination of care (as documented) at patient's floor/unit and/or counseling patient: Coding Level of Care Code 55912 SUB INP/OBS CARE 2/35MIN Diagnoses CHF (congestive heart failure) I50.9 Dilated cardiomyopathy I42.0 Cardiomyopathy type: dilated Atrial fibrillation I48.91 Anticoagulant long-term use Z79.01 Essential hypertension I10 Hypertension type: essential hypertension Aortic valve stenosis, etiology of cardiac valve disease unspecified I35.0 Cardiac valve disease etiology: etiology unspecified Mitral valve insufficiency, unspecified etiology I34.0 Cardiac valve disease etiology: etiology unspecified (2) Cardiomyopathy Cardiomyopathy type: dilated Qualified Code(s): I42.0 - Dilated cardiomyopathy (5) HBP (high blood pressure) Hypertension type: essential hypertension Qualified Code(s): I10 - Essential (primary) hypertension (6) Aortic stenosis Cardiac valve disease etiology: etiology unspecified Qualified Code(s): I35.0 - Nonrheumatic aortic (valve) stenosis (7) Mitral regurgitation Cardiac valve disease etiology: etiology unspecified Qualified Code(s): I34.0 - Nonrheumatic mitral (valve) insufficiency
[2023-11-21] MEDS: MAGNESIUM OXIDE 400 MG TAB PO SCH (16:27)
[2023-11-21] MEDS ORDERED: VALSARTAN/SACUBITRIL 26/24MG TAB PO SCH (21:00)
--- NOTE | 2023-11-21 22:00 | Electrocardiogram Report ---
Test Reason : Blood Pressure : / mmHG Vent. Rate : 086 BPM Atrial Rate : 000 BPM P-R Int : 000 ms QRS Dur : 090 ms QT Int : 382 ms P-R-T Axes : 000 013 002 degrees QTc Int : 457 ms Atrial fibrillation Nonspecific ST abnormality Abnormal ECG When compared with ECG of 29-SEP-2023 09:55, (unconfirmed) No significant change was found Confirmed by Prabhu Chen ([id number]) on 11/21/2023 10:00:42 PM Referred By: Confirmed By:Prabhu Chen
[2023-11-22 06:43] LABS: Basophils # (auto) 0.06 K/uL (0.00-0.20); Eosinophils # (auto) 0.15 K/uL (0.00-0.50); Eosinophils % (auto) 2.5 %; Hematocrit (blood only) 42.1 % (37.0-47.0); Hemoglobin 14.3 g/dl (12.0-16.0); Immature Granulocytes # (auto) 0.06 K/uL (0.01-0.20); Lymphocytes # (auto) 1.58 K/uL (1.20-3.40); Lymphocytes % (auto) 26.2 %; Mean Corpuscular Hemoglobin 30.2 pg (25.0-34.0); Mean Platelet Volume 11.7 fL (9.4-12.4); Monocytes # (auto) 0.65 K/uL (0.11-0.59); Monocytes % (auto) 10.8 %; Neutrophils # (auto) 3.52 K/uL (1.40-6.50); Neutrophils % (auto) 58.5 %; Platelet Count 169 K/uL (130-400); RDW Coefficient of Variation 13.2 % (11.5-14.5); RDW Standard Deviation 43.8 fL (36.4-46.3); Red Blood Count 4.73 M/uL (4.20-5.40); White Blood Count 6.02 K/ul (4.8-10.8)
[2023-11-22 07:00] LABS: BUN Creatinine Ratio 31.4 (10-20); Calcium 9.1 mg/dl (8.6-10.3); Creatinine Clr Calc Pharmacy 39.4 ml/min; Est GFR (African American) 55.3 ml/min; Est GFR (Non-African American) 47.7 ml/min; Potassium 3.9 mmol/L (3.5-5.1)
--- NOTE | 2023-11-22 07:58 | Hospitalist Progress Note ---
Date of Service November 22, 2023 Assessment & Plan (1) REEDER (dyspnea on exertion): Plan: Presented to the ED with one week of increased REEDER and associated substernal chest pressure - BNP is mildly elevated at 243, initial high sen trop is WNL, and ECg shows afib without acute ST segment or T-wave changes. Low susp for PE given on eliquis/continued and not missed dosing. Was provided 324mg ASA Nitropaste ordered to also help w/ BP Given dose IV lasix in ER, continued on home 40mg PO daily Suspect acute on chronic heart failure with newly reduced ejection fraction this past month in setting of underlying afib and hypomagnesemia/hypokalemia on admission Most recent cards note 09/28 with patient HR gradually dropping over past several year, had her diltiazem discontinued and hotler monitor ordered to see difference on/off the diltiazem. Also noting aortic stenosis/MR, prior EF 40-45% --> with repeat ECHO 10/26/23 noting LV systolic function moderately reduced to 30-35%, mild AR/moderate MR Holter monitor report in system with HR varying 40-111bpm, 886 PVCs and 1 ventricular run of 3 beats at 197bpm. 161 pauses over 2 seconds with longest 2.4 seconds, occurring primarily at night after midnight Did have hypomagnesemia/hypokalemia on admission which likely worsened symptoms but have been replaced/stable on repeat labs 11/21 Cards on consult/following Atenolol previously converted to carvedilol 12.5mg PO BID, rates stable with such and to continue Spironolactone 25mg daily continued -NEW MED, needs rx at dc Lisinopril discontinued previously and were initially going to start Entresto evening of 11/20 but Cr bumped to 1.21 and BP soft in afternoon (noting nitropaste was still on chest 11/20, I removed) and BPs elevated and Cr returned to normal 1.05 on AM labs --> Entresto started today (11/21) Nurse navigator khanh checking this for me this afternoon to ensure able to continue at discharge Discussed with Dr Chen today and resumed lasix 20mg PO (reduction from 40mg home dose) and can consider SGLT2 in follow up CHF clinic which is to be arranged in next week per cards AHA/low salt diet Continue to monitor weights/I&O (weight 82.8kg--> 79.9kg) Given patient 88yo and lives alone/newly starting entresto and electrolyte issues on admission contributing to symptoms and discussion with patient given improvement on exam will plan to monitor overnight/follow up on therapy evaluations and if labs stable/BP will plan for discharge tomorrow with close CHF follow up. Monitor labs/BP overnight and plan for dc if therapy evals stable for return to current living situation. CM to follow (2) CHF (congestive heart failure): Plan: Acute on chronic heart failure with reduced ejection fraction EF 30-35% on echo with mild-moderate mitral regurgitation, new on most recent echo this past month. Cards consulted, converting medications as above for CHF. F/u cardiomyopathy eval outpt. New start spironolactone/entresto as above (cassidy checking) and planning for close f/u CHF clinic. Consideration for SGLT2 (reinier w/ underlying DM/refusing insulin and on metformin 500mg PO BID at baseline, A1c 7.4) (3) Atrial fibrillation: Plan: remains in afib, rates controlled but had been dropping per outpt note and recently dc'd her diltiazem with increase and also hypomag/hypokalemia on admission which have been replaced/stable atenolol converted to carvedilol as above with improvement on telemetry Mag/K stable but will monitor with resumption of lasix 20mg po daily Continues on home Eliquis, appropriately dose (4) Hypokalemia: Plan: Replaced/resolved. Did give 40meq PO Kcl on 11/19 to keep closer to 4 w/ her afib but holding off further given now on spironolactone and k 4.0 on am labs prior and discontinued scheduled lasix 40mg po daily (on 20meq KCL at baseline) Given resumption of lasix 20mg PO daily but remaining on spironolactone as above will monitor labs in AM but if dropping lower likely would continue her on her home 20meq kcl supplementation but are also starting entresto and suspect will be stable to DISCONTINUE her home potassium supplementation while on the spironolactone/entresto to prevent hyperkalemia Mag 2.0 on Am labs and placed on mag-oxide once daily which can be continued (also used and assisted with helping her move her bowels) Will need close f/u CHF clinic and lab monitoring with changes to her medications (5) Chest pressure: Plan: No further pressure reported, just continued issues w/ exertional shortness of breath Troponin levels NOT elevated See REEDER plan (6) Cardiomyopathy: Plan: See above Will need f/u eval for cardiomyopathy but no need for urgent cath at this time and DO NOT suspect unstable angina at this time. Dc'd nitropaste 5/5 and no CP reported and having improvement in her REEDER w/ medication changes/diuresis as above (7) High cholesterol: Plan: Continue statin (8) Diabetes mellitus, type 2: Plan: No A1c in system and was added to AM labs --> A1c 7.4 Holding home metformin at this time, continue BSG AC/HS, sliding scale for now-- HAS BEEN REFUSING INSULIN INPATIENT On metformin 500mg BID at baseline and appears GFR 47 presently and could consider increasing to 1000mg BID at discharge however would need to continue to monitor as GFR 30-45 has max dose 500mg BID Highly recommend f/u CHF clinic to start SGLT2 for above as well as DM control given her renal function Plan continued inpatient stay monitoring on newly started entresto but if stable labs/symptoms and therapy evals patient potential for discharge tomorrow, 11/22 --> PT evals rec for home health, will notify CM to work on arranging Admission and Anticipated Discharge Date Admission Date: November 19, 2023 Subjective Evaluated this morning, sitting up in the chair. Had some abdominal burning day prior but much improved. Unclear if was from medication or taking them on empty stomach. Moving her bowels, once yesterday and reports again this morning, no issues. Good appetite. Improvement in sob w/ exertion today, started entresto. She does live alone and given new start would prefer to monitor response to ensure no hypotension/dizziness/acute issues but if staying stable will plan for dc. K/mag stable but messaging cardiology to see about restarting lower dose lasix as she was on 40mg PO daily on admission and recs for 20mg if not on prior which she was/. Questions/concerns addressed at this time. Physical Exam Physical Exam: Constitutional: 88 yo female sitting up in recliner, NAD, appears improved today, just moved her bowels Head atraumatic, normocephalic, mmm, no significant JVD CHest: no further nitropaste in place Resp: diminished in the bases but no obvious w/c/r, on room air 95% CV: irregularly irregular, rates 50-70s w/ PCVs, trace b/l LE edema, calves nontender GI: +BS, soft/NT : no albright MSK/Neuro/Psych: alert/oriented, pleasant and cooperative with exam, answering questions appropriately, following commands Results & Data Results & Data Vital Signs (Past 12 Hours) Vital Signs Temp Pulse Pulse Resp BP Pulse Ox Pulse Ox 11/22/23 07:16 11/22/23 07:11 66 11/22/23 03:54 36.6 C 90 20 133/75 94 11/21/23 23:12 36.7 C 77 18 156/70 H 99 11/21/23 22:29 95 11/21/23 22:00 75 O2 Del Method 11/22/23 07:16 Room Air 11/22/23 07:11 11/22/23 03:54 Room Air 11/21/23 23:12 Room Air 11/21/23 22:29 11/21/23 22:00 Laboratory Results 11/22/23 11/22/23 11/22/23 Range/Units 12:26 08:04 05:46 WBC 6.02 (4.8-10.8) K/ul RBC 4.73 (4.20-5.40) M/uL Hgb 14.3 (12.0-16.0) g/dl Hct 42.1 (37.0-47.0) % MCV 89.0 (80.0-100.0) fL MCH 30.2 (25.0-34.0) pg MCHC 34.0 (32.0-36.0) g/dL RDW Std Deviation 43.8 (36.4-46.3) fL RDW Coeff of Jese 13.2 (11.5-14.5) % Plt Count 169 (130-400) K/uL MPV 11.7 (9.4-12.4) fL Immature Gran % (Auto) 1.0 % Neut % (Auto) 58.5 % Lymph % (Auto) 26.2 % [place] % (Auto) 10.8 % Eos % (Auto) 2.5 % Baso % (Auto) 1.0 % Neut # (Auto) 3.52 (1.40-6.50) K/uL Lymph # (Auto) 1.58 (1.20-3.40) K/uL [place] # (Auto) 0.65 H (0.11-0.59) K/uL Eos # (Auto) 0.15 (0.00-0.50) K/uL Baso # (Auto) 0.06 (0.00-0.20) K/uL Immature Gran # (Auto) 0.06 (0.01-0.20) K/uL Sodium 141 (136-145) mmol/L Potassium 3.9 (3.5-5.1) mmol/L Chloride 104 (98-107) mmol/L Carbon Dioxide 30 (21-32) mmol/L Anion Gap 7 (3-11) BUN 33 H (6-23) mg/dl Creatinine 1.05 (0.6-1.2) mg/dl Est Cr Clr Drug Dosing 39.4 ml/min Est GFR ( Amer) 55.3 ml/min Est GFR (Non-Af Amer) 47.7 ml/min BUN/Creatinine Ratio 31.4 H (10-20) Glucose 157 H (70-99(Fasting)) mg/dl POC Glucose 177 H 166 H (70-99) mg/dl Calcium 9.1 (8.6-10.3) mg/dl Magnesium 2.0 (1.7-2.4) mg/dl 11/21/23 11/21/23 Range/Units 20:14 17:07 WBC (4.8-10.8) K/ul RBC (4.20-5.40) M/uL Hgb (12.0-16.0) g/dl Hct (37.0-47.0) % MCV (80.0-100.0) fL MCH (25.0-34.0) pg MCHC (32.0-36.0) g/dL RDW Std Deviation (36.4-46.3) fL RDW Coeff of Jese (11.5-14.5) % Plt Count (130-400) K/uL MPV (9.4-12.4) fL Immature Gran % (Auto) % Neut % (Auto) % Lymph % (Auto) % [place] % (Auto) % Eos % (Auto) % Baso % (Auto) % Neut # (Auto) (1.40-6.50) K/uL Lymph # (Auto) (1.20-3.40) K/uL [place] # (Auto) (0.11-0.59) K/uL Eos # (Auto) (0.00-0.50) K/uL Baso # (Auto) (0.00-0.20) K/uL Immature Gran # (Auto) (0.01-0.20) K/uL Sodium (136-145) mmol/L Potassium (3.5-5.1) mmol/L Chloride (98-107) mmol/L Carbon Dioxide (21-32) mmol/L Anion Gap (3-11) BUN (6-23) mg/dl Creatinine (0.6-1.2) mg/dl Est Cr Clr Drug Dosing ml/min Est GFR ( Amer) ml/min Est GFR (Non-Af Amer) ml/min BUN/Creatinine Ratio (10-20) Glucose (70-99(Fasting)) mg/dl POC Glucose 231 H 173 H (70-99) mg/dl Calcium (8.6-10.3) mg/dl Magnesium (1.7-2.4) mg/dl PG Care Time/CCT Total # of Minutes Spent Total Time Spent with Patient: Total time spent is greater than 50% in coordination of care (as documented) at patient's floor/unit and/or counseling patient: Coding Level of Care Code 98604 SUB INP/OBS CARE 3/50MIN Diagnoses REEDER (dyspnea on exertion) R06.09 Acute on chronic systolic congestive heart failure I50.23 Heart failure chronicity: acute on chronic Heart failure type: systolic Atrial fibrillation I48.91 Hypokalemia E87.6 Chest pressure R07.89 Dilated cardiomyopathy I42.0 Cardiomyopathy type: dilated High cholesterol E78.00 Diabetes mellitus, type 2 E11.9 (2) CHF (congestive heart failure) Heart failure chronicity: acute on chronic Heart failure type: systolic Qualified Code(s): I50.23 - Acute on chronic systolic (congestive) heart failure (6) Cardiomyopathy Cardiomyopathy type: dilated Qualified Code(s): I42.0 - Dilated cardiomyopathy
[2023-11-22] MEDS: VALSARTAN/SACUBITRIL 26/24MG TAB PO SCH (08:51)
--- NOTE | 2023-11-22 08:56 | Cardiology Progress Note ---
Date of Service November 22, 2023 Assessment & Plan (1) CHF (congestive heart failure): (2) Cardiomyopathy: (3) Atrial fibrillation: (4) Anticoagulant long-term use: (5) HBP (high blood pressure): (6) Aortic stenosis: (7) Mitral regurgitation: Plan 1. Congestive heart failure: Her congestive heart failure appears to be fundamentally on the basis of worsening left ventricular function. I believe this has been somewhat gradual but exacerbated recently. Her creatinine bumped up a bit yesterday and I suspected she is euhydrated although she probably already got Lasix yesterday. I do not believe she was on an outpatient diuretic so she may not need much, I would start a relatively low oral dose of Lasix today. Perhaps 20 mg, I did not write that order. 2. Cardiomyopathy: She has had a progressive cardiomyopathy for some time, it has worsened recently. She is not on much in the way of heart failure medications and we will have to correct that, but we do not have a clear cause for her cardiomyopathy. It is certainly not rate related although atrial fibrillation itself can lead to cardiomyopathy due to hemodynamic inefficiency, it does not appear ischemic although we may have to investigate that. We will need to evaluate her for other causes of cardiomyopathy. In the meantime I am going to change her medications, I would like to switch her lisinopril to Entresto, I discontinued her lisinopril and we can start the Entresto now. I did discontinue atenolol and started carvedilol and she seems to be tolerating that although her blood pressure was a bit low but only transiently. I would see how her blood pressure trends over the next day or so (could be as an outpatient) and if it is not low we could increase her carvedilol. It may drop on Entresto. We should consider Jardiance and Farxiga and I think spironolactone would be a good idea given her hypokalemia, I started spironolactone. All of these changes do not need to be done in the hospital. We will need to titrate her medications as an outpatient and monitor her left ventricular response. 3. Atrial fibrillation: Her heart rate has been gradually dropping over the last several years based on our office measurements and I discontinued diltiazem, on recent Holter monitoring her heart rate appears well-controlled on beta-blockade alone. With changing to carvedilol her heart rate seems adequately controlled. 4. Anticoagulation: She is doing well on Eliquis, she is on the correct dose based on her weight and kidney function and I recommended she continue. 5. High blood pressure: Her blood pressure is typically fairly well-controlled, discontinuing diltiazem may have resulted in an increase. I am hopeful that titrating beta-blockade and ARB therapy (carvedilol and Entresto) will control her blood pressure. It has mostly normalized since yesterday, although it is quite labile, low yesterday and high today, possibly due to discontinuation of lisinopril. 6. Aortic stenosis: She had mild aortic stenosis but that has not progressed to the point where this should cause her heart failure exacerbation. 7. Mitral regurgitation: She had moderate to severe mitral regurgitation on her last echo, this could also contribute to her symptoms and her left ventricular dilatation but with the degree that she has it generally does not cause a decrease in left ventricular function. Admission and Anticipated Discharge Date Admission Date: November 19, 2023 Subjective She is feeling well today, she tells me that her breathing is better than yesterday. No orthopnea, PND or dyspnea on exertion. She may have had abdominal discomfort from one of her medications yesterday but that is improved today. Physical Exam Physical Exam: Constitutional: Alert, cooperative and in no distress. HEENT: Unremarkable Neck: No jugular venous distention, carotid pulses are irregular but otherwise normal and equal bilaterally without bruits. Pulmonary: Clear to auscultation bilaterally. Cardiac: Irregular rhythm with a soft holosystolic murmur murmur, no gallop or rub. Abdomen: Soft, nontender with normal bowel sounds. Extremities: No edema. Neurologic: No focal findings. Skin: No rash, ecchymoses or petechiae. Results & Data Vital Signs (Past 12 Hours) Vital Signs Temp Pulse Pulse Resp BP Pulse Ox Pulse Ox 11/22/23 07:16 11/22/23 07:11 66 11/22/23 03:54 36.6 C 90 20 133/75 94 11/21/23 23:12 36.7 C 77 18 156/70 H 99 11/21/23 22:29 95 11/21/23 22:00 75 O2 Del Method 11/22/23 07:16 Room Air 11/22/23 07:11 11/22/23 03:54 Room Air 11/21/23 23:12 Room Air 11/21/23 22:29 11/21/23 22:00 Laboratory Results CBC 11/22/23 Range/Units 05:46 WBC 6.02 (4.8-10.8) K/ul RBC 4.73 (4.20-5.40) M/uL Hgb 14.3 (12.0-16.0) g/dl Hct 42.1 (37.0-47.0) % Plt Count 169 (130-400) K/uL Neut # (Auto) 3.52 (1.40-6.50) K/uL Lymph # (Auto) 1.58 (1.20-3.40) K/uL [place] # (Auto) 0.65 H (0.11-0.59) K/uL Eos # (Auto) 0.15 (0.00-0.50) K/uL Baso # (Auto) 0.06 (0.00-0.20) K/uL Comprehensive Metabolic Panel 11/22/23 Range/Units 05:46 Sodium 141 (136-145) mmol/L Potassium 3.9 (3.5-5.1) mmol/L Chloride 104 (98-107) mmol/L Carbon Dioxide 30 (21-32) mmol/L BUN 33 H (6-23) mg/dl Creatinine 1.05 (0.6-1.2) mg/dl Glucose 157 H (70-99(Fasting)) mg/dl Calcium 9.1 (8.6-10.3) mg/dl Intake and Output 11/21/23 11/22/23 11/22/23 22:59 06:59 14:59 Intake Total 840 / 1490 Output Total 450 / 450 Balance 390 / 1040 Intake: Oral 840 / 1490 Output: Urine Amount (Catheter) 450 / 450 External 450 / 450 Other: Weight 79.9 kg Weight Measurement Method Built in [facility] Diagnostic Findings Telemetry: Atrial fibrillation, heart rate 60-80 in general PG Care Time/CCT Total # of Minutes Spent Total Time Spent with Patient: Total time spent is greater than 50% in coordination of care (as documented) at patient's floor/unit and/or counseling patient: Coding Level of Care Code 27342 SUB INP/OBS CARE 2/35MIN Diagnoses Acute on chronic systolic congestive heart failure I50.23 Heart failure chronicity: acute on chronic Heart failure type: systolic Dilated cardiomyopathy I42.0 Cardiomyopathy type: dilated Permanent atrial fibrillation I48.21 Atrial fibrillation type: permanent Anticoagulant long-term use Z79.01 Essential hypertension I10 Hypertension type: essential hypertension Aortic valve stenosis, etiology of cardiac valve disease unspecified I35.0 Cardiac valve disease etiology: etiology unspecified Mitral valve insufficiency, unspecified etiology I34.0 Cardiac valve disease etiology: etiology unspecified (1) CHF (congestive heart failure) Heart failure chronicity: acute on chronic Heart failure type: systolic Qualified Code(s): I50.23 - Acute on chronic systolic (congestive) heart failure (2) Cardiomyopathy Cardiomyopathy type: dilated Qualified Code(s): I42.0 - Dilated cardiomyopathy (3) Atrial fibrillation Atrial fibrillation type: permanent Qualified Code(s): I48.21 - Permanent atrial fibrillation (5) HBP (high blood pressure) Hypertension type: essential hypertension Qualified Code(s): I10 - Essential (primary) hypertension (6) Aortic stenosis Cardiac valve disease etiology: etiology unspecified Qualified Code(s): I35.0 - Nonrheumatic aortic (valve) stenosis (7) Mitral regurgitation Cardiac valve disease etiology: etiology unspecified Qualified Code(s): I34.0 - Nonrheumatic mitral (valve) insufficiency
[2023-11-22] MEDS: FUROSEMIDE 20 MG TAB PO SCH (12:02)
[2023-11-22] MEDS: metFORMIN HCL 500 MG TAB PO SCH (21:30)
[2023-11-23 06:42] LABS: BUN Creatinine Ratio 29.1 (10-20); Calcium 9.3 mg/dl (8.6-10.3); Creatinine Clr Calc Pharmacy 35.6 ml/min; Est GFR (African American) 48.5 ml/min; Est GFR (Non-African American) 41.9 ml/min; Magnesium 2.1 mg/dl (1.7-2.4); Potassium 4.4 mmol/L (3.5-5.1)
--- NOTE | 2023-11-23 09:57 | Heart Failure Consultation ---
Date of Consultation November 23, 2023 Assessment & Plan (1) Cardiomyopathy: (2) HFrEF (heart failure with reduced ejection fraction): History of Present Illness Attending Physician: Mayra Portillo MD History of Present Illness Meet with patient in their hospital room. We discussed the nature of heart failure and the goals of the heart failure program. Patient is agreeable to ongoing participation and will be formally enrolled in [place] [facility] [place]. Patient advised to weigh themselves daily on their home scale. Notify the office if 2+ lb weight gain overnight or 5+ lb in 1 week. Low sodium diet recommended on discharge. Contact information provided. Patient will have scheduled outpatient follow up within 7 days of discharge. Please see full cardiology consult for additional recommendations and formal plan of care. Allergies Allergy/AdvReac Type Severity Reaction Status Date / Time lidocaine Allergy Intermediate rash, face Verified 11/19/23 19:14 got puffy Home Medications Medication Instructions Recorded Confirmed Type atorvastatin 40 mg tablet 40 mg PO DAILY 12/25/19 11/19/23 History glucosamine HCl 1,500 mg tablet 3,000 mg PO DAILY 12/25/19 11/19/23 History levothyroxine 88 mcg capsule 88 mcg PO DAILY 12/25/19 11/19/23 History apixaban 5 mg tablet (Eliquis) 5 mg PO BID 02/08/20 11/19/23 History cholecalciferol (vitamin D3) 25 1,000 units PO DAILY 02/08/20 11/19/23 History mcg (1,000 unit) capsule furosemide 40 mg tablet 40 mg PO DAILY 02/08/20 11/19/23 History icosapent ethyl 1 gram capsule 1 gm PO DAILY 02/08/20 11/19/23 History (Vascepa) metformin 500 mg tablet 500 mg PO BID 02/08/20 11/19/23 History multivitamin 1 tab PO DAILY 02/08/20 11/19/23 History potassium chloride 20 mEq 20 meq PO DAILY 02/08/20 11/19/23 History tablet,extended release vitamin E 268 mg (400 unit) capsule 400 unit PO DAILY 02/15/20 11/19/23 History atenolol 50 mg tablet 50 mg PO DAILY #90 tabs 06/25/20 11/19/23 Rx lisinopril 10 mg tablet 10 mg PO DAILY 06/25/20 11/19/23 History ascorbic acid (vitamin C) 500 mg 1,000 mg PO DAILY 01/08/22 11/19/23 History capsule Benefiber Tab 1 tab PO DIRECTED PRN 11/19/23 11/19/23 History Constipation acetaminophen 500 mg tablet 1,000 mg PO Q6H PRN Pain 11/19/23 11/19/23 History (Tylenol Extra Strength) carvedilol 12.5 mg tablet 12.5 mg PO BIDM #60 tabs 11/22/23 Rx furosemide 20 mg tablet 20 mg PO QAM #30 tabs 11/22/23 Rx magnesium oxide 400 mg (241.3 mg 400 mg PO QAM #30 tabs 11/22/23 Rx magnesium) tablet sacubitril 24 mg-valsartan 26 mg 1 tab PO BID #60 tabs 11/22/23 Rx tablet (Entresto) spironolactone 25 mg tablet 25 mg PO QAM #30 tabs 11/22/23 Rx Patient History Medical History (Updated 11/23/23 @ 09:58 by Caty Stallings PA-C) Overactive bladder Diabetes mellitus, type 2 Hypothyroidism Basal cell carcinoma of nose Congestive heart failure Admitted October 2019 for diastolic CHF at [facility]- per cardio note 02/08/20- CHF now corrected with meds and patient feels well Atrial fibrillation reason for scheduled cardioversion, reason for eliquis Benign thyroid cyst Bowel obstruction High cholesterol Surgical History History of bilateral tubal ligation History of dilatation and curettage History of varicose vein ligation and stripping bilt History of colonoscopy History of esophagogastroduodenoscopy (EGD) History of Mohs micrographic surgery for skin cancer History of tooth extraction all teeth History of lumpectomy of right breast benign S/P thyroid biopsy History of thyroid surgery benign lump removal History of bilateral cataract extraction History of cardiac cath 2000 @ [facility] d/t SOB--no stents placed 2005 @ [facility]--no stents placed H/O exploratory laparotomy Family History Mother Diabetes Heart disease Cancer Sister Diabetes Heart disease Brother Cancer Hypertension Other No family history of adverse response to anesthesia Social History Smoking Status: Never smoker Second Hand Exposure: No; Do You Dip or Chew Tobacco: No; Hx Alcohol Use: No Hx Substance Use: No Preferred Language: Iranian Communication Ability: Effective Dental Service Chief Required: No Beliefs That Will Affect Care: None marital status: Current Living Situation: Alone current occupational status: retired Feels Safe at Home: Yes Assistive Devices: Cane, Walker and Other Results & Data Vital Signs (Past 12 Hours) Vital Signs Temp Pulse Pulse Pulse Resp BP Pulse Ox 11/23/23 09:42 97.9 F 76 76 18 142/84 H 95 11/23/23 09:40 97.9 F 76 76 18 142/84 H 95 11/23/23 07:42 97.9 F 76 18 142/84 H 95 11/23/23 07:29 11/23/23 07:11 78 11/23/23 03:40 97.3 F L 76 20 136/78 96 11/23/23 00:00 97.3 F L 75 20 142/83 H 96 11/22/23 22:52 11/22/23 22:00 65 Pulse Ox O2 Del Method O2 Del Method 11/23/23 09:42 11/23/23 09:40 11/23/23 07:42 Room Air 11/23/23 07:29 Room Air 11/23/23 07:11 11/23/23 03:40 Room Air 11/23/23 00:00 Room Air 11/22/23 22:52 95 Room Air 11/22/23 22:00 Heart Failure Data/Metrics Heart Failure Type: HFrEf (EF < 40%) Ejection Fraction: 30-35% Evidenced Based Beta Yariel Therapy Beta Yariel Therapy: Yes Beta Yariel Name: Carvedilol Beta Yariel Target Therapy: Not at Target Therapy JEWELS/ARB/ARNI Therapy JEWELS/ARB/ARNI Therapy: Yes JEWELS/ARB/ARNI Name: Entresto JEWELS/ARB/ARNI Target The rapy: Not at Target Therapy Aldosterone Antagonist Therapy Aldosterone Antagonist Therapy: Yes Aldosterone Antagonist Name: Spironolactone SGLT-2 Inhibitor Therapy SGLT-2 Inhibitor Therapy: Contraindicated SGLT-2 Inhibitor Contraindications: Other (Azotemic) Coding Level of Care Code None Diagnoses Dilated cardiomyopathy I42.0 Cardiomyopathy type: dilated HFrEF (heart failure with reduced ejection fraction) I50.20 (1) Cardiomyopathy Cardiomyopathy type: dilated Qualified Code(s): I42.0 - Dilated cardiomyopathy
--- NOTE | 2023-11-23 20:18 | Hospitalist Progress Note ---
Date of Service November 23, 2023 Assessment & Plan (1) CHF (congestive heart failure): Plan: Acute on chronic heart failure with reduced ejection fraction, possibly from Afib. P/w one week of increased REEDER and associated substernal chest pressure - BNP mildly elevated at 243, initial high sen trop is WNL, and ECG shows afib without acute ST segment or T-wave changes ECHO w/ prior EF 40-45% --> with repeat ECHO 10/26/23 noting LV systolic function moderately reduced to 30-35%, mild AR/moderate MR Cards consulted Started spironolactone,lower dose of lasix 20mg daily Converted atenolol from home to Coreg 12.5mg po bid Added on Entresto but had significant orthostasis on 11/22--> HOLD for now and consider retrial of 1/2 tab bid in future Consideration for SGLT2 w/ underlying DM-can be done as outpt with CHF clinic Referred to CHF Clinic Improving with weight loss, net neg fluid balance, and now weaned off supplemental O2 Follow BMP, mag--dc po magnesium as is causing abdominal distress Check orthostatics again in AM (2) Atrial fibrillation: Plan: Remains in afib, rates controlled but had been low per outpt note and diltiazem was stopped atenolol converted to carvedilol as above with improvement on telemetry Continues on home Eliquis Continue to monitor on tele (3) Hypokalemia: Plan: resolved follow BMP as started aldactone and remains on lasix (4) Chest pressure: Plan: No further pressure reported, just continued issues w/ exertional shortness of breath Troponin levels NOT elevated 2/2 CHF (5) Cardiomyopathy: Plan: Will need f/u eval for cardiomyopathy but no need for urgent cath at this time and DO NOT suspect unstable angina at this time. Dc'd nitropaste 11/20 and no CP reported and having improvement in her REEDER w/ medication changes/diuresis as above (6) High cholesterol: Plan: Continue statin (7) Diabetes mellitus, type 2: Plan: HgbA1c 7.4%, well controlled resumed home metformin at this time, continue BSG AC/HS, declines Novolog SSI recommend f/u CHF clinic to start SGLT2 (8) Hypothyroidism: Plan: No TSH in our system-check in AM continue home LT4 Plan DVT proph-Eliquis Dispo-continued stay, possible dc in 1 day if orthostasis resolved Admission and Anticipated Discharge Date Admission Date: November 19, 2023 Anticipated date of discharge: 11/24/23 Subjective Pt felt very lightheaded and felt like she was "seeing through glass" earlier with an associated headache after sitting in her chair for a while. SHe also has noticed abdominal pressure and burning since starting on po magnesium. BPs were significantly orthostatic today and Entresto will be stopped. Advised bed rest for today. BPs improved throughout the day. Headache resolved later. Tele with Afib, rates 60-70s Physical Exam Constitutional: WD/WN, vitals as above Respiratory: normal respiratory effort, lungs clear to auscultation Cardiovascular: Rate/Rhythm: regular rate and + irregularly irregular Heart Sounds: no murmur Gastrointestinal (Abdomen): Inspection/Auscultation: abdomen normal to inspection Percussion/Palpation: + abdomen tender (mild, diffuse) and abdomen soft; no guarding Psychiatric: A+Ox3, euthymic affect Results & Data Results & Data Vital Signs (Past 12 Hours) Vital Signs Temp Pulse Pulse Pulse Resp BP Pulse Ox 11/23/23 19:46 36.3 C L 72 18 114/74 95 11/23/23 19:15 11/23/23 15:20 36.4 C L 72 18 147/88 H 98 11/23/23 15:15 69 11/23/23 11:39 36.5 C 76 18 114/68 97 11/23/23 10:23 91/64 L 11/23/23 10:18 83 20 91/63 L 97 11/23/23 09:42 36.6 C 76 76 18 142/84 H 95 11/23/23 09:40 36.6 C 76 76 18 142/84 H 95 O2 Del Method 11/23/23 19:46 Room Air 11/23/23 19:15 Room Air 11/23/23 15:20 Room Air 11/23/23 15:15 11/23/23 11:39 Room Air 11/23/23 10:23 11/23/23 10:18 Room Air 11/23/23 09:42 11/23/23 09:40 Laboratory Results BMP, magnesium reviewed PG Care Time/CCT Total # of Minutes Spent Total Time Spent with Patient: Total time spent is greater than 50% in coordination of care (as documented) at patient's floor/unit and/or counseling patient: Coding Level of Care Code 49329 SUB INP/OBS CARE 2MIN Diagnoses Acute on chronic systolic congestive heart failure I50.23 Heart failure chronicity: acute on chronic Heart failure type: systolic Permanent atrial fibrillation I48.21 Atrial fibrillation type: permanent Hypokalemia E87.6 Chest pressure R07.89 Dilated cardiomyopathy I42.0 Cardiomyopathy type: dilated High cholesterol E78.00 Diabetes mellitus, type 2 E11.9 Hypothyroidism E03.9 (1) CHF (congestive heart failure) Heart failure chronicity: acute on chronic Heart failure type: systolic Qualified Code(s): I50.23 - Acute on chronic systolic (congestive) heart failure (2) Atrial fibrillation Atrial fibrillation type: permanent Qualified Code(s): I48.21 - Permanent atrial fibrillation (5) Cardiomyopathy Cardiomyopathy type: dilated Qualified Code(s): I42.0 - Dilated cardiomyopathy
[2023-11-24] MEDS: ALUMINUM/MAGNESIUM SUSP 30 ML UDC PO STA (07:19)
[2023-11-24 09:16] LABS: BUN Creatinine Ratio 27.7 (10-20); Calcium 9.3 mg/dl (8.6-10.3); Creatinine Clr Calc Pharmacy 40.9 ml/min; Magnesium 1.8 mg/dl (1.7-2.4); Potassium 4.2 mmol/L (3.5-5.1)
[2023-11-24 09:30] LABS: Thyroid Stimulating Hormone 2.477 uIu/ml (0.300-4.500)
--- NOTE | 2023-11-24 16:44 | Hospitalist Progress Note ---
Date of Service November 24, 2023 Assessment & Plan (1) CHF (congestive heart failure): Plan: Acute on chronic heart failure with reduced ejection fraction, possibly from Afib. P/w one week of increased REEDER and associated substernal chest pressure - BNP mildly elevated at 243, initial high sen trop is WNL, and ECG shows afib without acute ST segment or T-wave changes ECHO w/ prior EF 40-45% --> with repeat ECHO 10/26/23 noting LV systolic function moderately reduced to 30-35%, mild AR/moderate MR Cards consulted Started spironolactone,lower dose of lasix 20mg daily-given ongoing orthostasis and have removed large amount of volume-hold Lasix and lower spironolactone to 12.5 Mg daily Converted atenolol from home to Coreg 12.5mg po bid-given ongoing orthostasis- reduce dose to 6.25 Mg p.o. twice daily Added on Entresto but had significant orthostasis on 11/22--> HOLD for now and consider retrial of 1/2 tab bid in future Consideration for SGLT2 w/ underlying DM-can be done as outpt with CHF clinic Referred to CHF Clinic Improving with weight loss, net neg fluid balance, and now weaned off supplemental O2. May need two-step walk test prior to discharge-still feels dyspneic on exertion Follow BMP, mag--dcd po magnesium as is causing abdominal distress Check orthostatics again in AM after noted changes in medications as above hopefully will improve (2) Atrial fibrillation: Plan: Remains in afib, rates controlled but had been low per outpt note and diltiazem was stopped atenolol converted to carvedilol as above with improvement in rate Continues on home Eliquis Continue to monitor on tele (3) Hypokalemia: Plan: resolved follow BMP as started aldactone and remains on lasix (4) Chest pressure: Plan: No further pressure reported, just continued issues w/ exertional shortness of breath Troponin levels NOT elevated 2/2 CHF Will do two-step walk test prior to discharge (5) Cardiomyopathy: Plan: Will need f/u eval for cardiomyopathy but no need for urgent cath at this time and DO NOT suspect unstable angina at this time. Dc'd nitropaste 5/5 and no CP reported and having improvement in her REEDER w/ medication changes/diuresis as above (6) High cholesterol: Plan: Continue statin (7) Diabetes mellitus, type 2: Plan: HgbA1c 7.4%, well controlled resumed home metformin, continue BSG AC/HS, declines Novolog SSI recommend f/u CHF clinic to start SGLT2 (8) Hypothyroidism: Plan: TSH normal at 2.4 continue home LT4 (9) Abdominal pain: Plan: Diffuse, mild, likely related to constipation seen on KUB on 11/23 Added MiraLAX Previously stopped magnesium which may have been exacerbating this Plan DVT proph-Eliquis Dispo-continued stay, possible dc in 1 day if orthostasis resolved Admission and Anticipated Discharge Date Admission Date: November 19, 2023 Subjective Patient felt only minimally lightheaded with standing today but much improved overall. Still feels short of breath with exertion. Still had some occasional low blood pressures today but improved from previous. Telemetry with atrial fibrillation with rates in the 70s to 90s Discussed her care with her son and [id number] at the bedside. She also continues to have some abdominal pain but did have 2 small bowel movements today. Feels constipated. Physical Exam Constitutional: WD/WN, vitals as above Respiratory: normal respiratory effort, lungs clear to auscultation Cardiovascular: Rate/Rhythm: regular rate and + irregularly irregular Heart Sounds: no murmur Gastrointestinal (Abdomen): Inspection/Auscultation: abdomen normal to inspection Percussion/Palpation: + abdomen tender (mild, diffuse) and abdomen soft; no guarding Psychiatric: A+Ox3, euthymic affect Results & Data Results & Data Vital Signs (Past 12 Hours) Vital Signs Temp Pulse Pulse Resp BP Pulse Ox O2 Del Method 11/24/23 15:26 36.7 C 79 16 94/63 L 95 Room Air 11/24/23 15:09 96 H 11/24/23 11:00 36.4 C L 82 18 90/60 L 94 Room Air 11/24/23 07:56 36.7 C 76 16 109/65 94 Room Air 11/24/23 07:16 Room Air 11/24/23 07:03 70 Laboratory Results BMP, TSH, magnesium reviewed PG Care Time/CCT Total # of Minutes Spent Total Time Spent with Patient: Total time spent is greater than 50% in coordination of care (as documented) at patient's floor/unit and/or counseling patient: Coding Level of Care Code 60935 SUB INP/OBS CARE 350MIN Diagnoses Acute on chronic systolic congestive heart failure I50.23 Heart failure chronicity: acute on chronic Heart failure type: systolic Permanent atrial fibrillation I48.21 Atrial fibrillation type: permanent Hypokalemia E87.6 Chest pressure R07.89 Dilated cardiomyopathy I42.0 Cardiomyopathy type: dilated High cholesterol E78.00 Diabetes mellitus, type 2 E11.9 Hypothyroidism E03.9 Abdominal pain R10.9 (1) CHF (congestive heart failure) Heart failure chronicity: acute on chronic Heart failure type: systolic Qualified Code(s): I50.23 - Acute on chronic systolic (congestive) heart failure (2) Atrial fibrillation Atrial fibrillation type: permanent Qualified Code(s): I48.21 - Permanent atrial fibrillation (5) Cardiomyopathy Cardiomyopathy type: dilated Qualified Code(s): I42.0 - Dilated cardiomyopathy
[2023-11-24] MEDS: POLYETHYLENE (MIRALAX) 17 GM PACK PO SCH (17:28)
[2023-11-24] MEDS: carvediloL 6.25 MG TAB PO SCH (17:44)
--- NOTE | 2023-11-24 17:49 | XRay Report ---
KUB HISTORY: Generalized abdominal pain. COMPARISON: None. FINDINGS: The bowel gas pattern is unremarkable. There are no dilated loops of small bowel to suggest an obstruction. No renal calculi. No ureteral calculi. Calcifications in the deep pelvis likely rep resent phleboliths. There is a left hip hemiarthroplasty. Moderate fecal retention. No pneumoperitone um or pneumatosis. IMPRESSION: 1. Nonobstructive bowel gas pattern. 2. Moderate fecal retention. ACT 112: Negative or not required by law. Electronically signed by: Christofer Titus M.D. 11/24/2023 5:48 PM
[2023-11-25] MEDS: SPIRONOLACTONE 12.5 MG TAB PO SCH (08:25)
[2023-11-25 10:24] LABS: Basophils # (auto) 0.04 K/uL (0.00-0.20); Basophils % (auto) 0.6 %; Eosinophils # (auto) 0.12 K/uL (0.00-0.50); Eosinophils % (auto) 1.8 %; Hematocrit (blood only) 43.6 % (37.0-47.0); Hemoglobin 14.7 g/dl (12.0-16.0); Immature Granulocytes # (auto) 0.03 K/uL (0.01-0.20); Immature Granulocytes % (auto) 0.5 %; Lymphocytes # (auto) 1.12 K/uL (1.20-3.40); Lymphocytes % (auto) 16.8 %; Mean Corpuscular Hemoglobin 30.2 pg (25.0-34.0); Mean Corpuscular Hgb Conc 33.7 g/dL (32.0-36.0); Mean Corpuscular Volume 89.5 fL (80.0-100.0); Mean Platelet Volume 11.9 fL (9.4-12.4); Monocytes % (auto) 7.5 %; Neutrophils # (auto) 4.84 K/uL (1.40-6.50); Neutrophils % (auto) 72.8 %; Platelet Count 202 K/uL (130-400); RDW Coefficient of Variation 13.3 % (11.5-14.5); RDW Standard Deviation 43.8 fL (36.4-46.3); Red Blood Count 4.87 M/uL (4.20-5.40); White Blood Count 6.65 K/ul (4.8-10.8)
[2023-11-25 10:31] LABS: BUN Creatinine Ratio 29.5 (10-20); Calcium 9.4 mg/dl (8.6-10.3); Creatinine Clr Calc Pharmacy 30.2 ml/min; Est GFR (African American) 43.1 ml/min; Est GFR (Non-African American) 37.2 ml/min; Magnesium 1.8 mg/dl (1.7-2.4); Potassium 4.6 mmol/L (3.5-5.1)
--- NOTE | 2023-11-25 10:51 | Heart Failure Progress Note ---
Date of Service November 25, 2023 Assessment & Plan (1) Cardiomyopathy: (2) HFrEF (heart failure with reduced ejection fraction): Plan 1. HFrEF: She appears euvolemic on exam today. Her BP has improved. Renal function is stable. Lasix currently on hold. I would recommend Lasix 20 mg PRN f or discharge. Entresto also on hold. Can likely retrial at 1/2 tab of 24/26 mg today and see if she tolerates this. Continue Carvedilol and Spironolactone at reduced doses. Would not recommend SGLT2i at this time due to her recent orthostatic symptoms. Will continue to titrate as able as outpatient. Daily standing weights. Strict I&Os. Low sodium diet. Follow up with the heart failure program within 7 days of discharge. She will need BMP, magnesium, and BNP drawn within 7 days (prior to appt). 2. Cardiomyopathy: She has had a progressive cardiomyopathy for some time, it has worsened recently. It is certainly not rate related although atrial fibrillation itself can lead to cardiomyopathy due to hemodynamic inefficiency, it does not appear ischemic although we may have to investigate that. We will need to evaluate her for other causes of cardiomyopathy. We will need to titrate her medications as an outpatient and monitor her left ventricular response. If EF remains less than 35% after 3 months of optimal therapy would consider ICD. 3. Atrial fibrillation: Asymptomatic. Rate well controlled. Continue anticoagulation. 4. Anticoagulation: She is doing well on Eliquis, she is on the correct dose based on her weight and kidney function. 5. High blood pressure: Her blood pressure is typically fairly well-controlled. She has been orthostatic with med changes. Seems acceptable today and she is no longer symptomatic. 6. Aortic stenosis: She had mild aortic stenosis but that has not progressed to the point where this should cause her heart failure exacerbation. 7. Mitral regurgitation: She had moderate to severe mitral regurgitation on her last echo, this could also contribute to her symptoms and her left ventricular dilatation but with the degree that she has it generally does not cause a decrease in left ventricular function. Disposition: Follow up with the heart failure program within 7 days of discharge. 12/02/23 at 1030am Admission and Anticipated Discharge Date Admission Date: November 19, 2023 Subjective Patient is feeling well today. She was having issues with orthostatic hypotension and abdominal discomfort. Med doses have been de-escalated. BP is improved today and she was asymptomatic with ambulation. No lower extremity hortencia ma. Weight is trending down. Physical Exam Physical Exam: Constitutional: Alert, cooperative and in no distress. HEENT: Unremarkable Neck: No jugular venous distention, carotid pulses are irregular but otherwise normal and equal bilaterally without bruits. Pulmonary: Normal respiratory effort. Clear to auscultation bilaterally. Cardiac: Irregular rhythm with a soft holosystolic murmur murmur, no gallop or rub. Abdomen: Soft, nontender with normal bowel sounds. Extremities: No edema. Neurologic: No focal findings. Skin: No rash, ecchymoses or petechiae. Results & Data Vital Signs (Past 12 Hours) Vital Signs Temp Pulse Pulse Pulse Pulse Resp Resp 11/25/23 10:17 88 71 22 11/25/23 10:06 70 11/25/23 08:30 11/25/23 08:00 11/25/23 07:59 98.1 F 66 18 11/25/23 03:16 97.7 F 74 18 11/25/23 00:53 81 11/25/23 00:34 98.2 F 89 20 Resp BP Pulse Ox Pulse Ox Pulse Ox Pulse Ox O2 Del Method 11/25/23 10:17 16 93 97 11/25/23 10:06 11/25/23 08:30 Room Air 11/25/23 08:00 94 11/25/23 07:59 114/75 94 Room Air 11/25/23 03:16 115/57 L 97 Room Air 11/25/23 00:53 11/25/23 00:34 106/71 94 Room Air O2 Del Method 11/25/23 10:17 11/25/23 10:06 11/25/23 08:30 11/25/23 08:00 Room Air 11/25/23 07:59 11/25/23 03:16 11/25/23 00:53 11/25/23 00:34 PG Care Time/CCT Total # of Minutes Spent Total Time Spent with Patient: Total time spent is greater than 50% in coordination of care (as documented) at patient's floor/unit and/or counseling patient: Heart Failure Data/Metrics Heart Failure Type: HFrEf (EF < 40%) Ejection Fraction: 30-35% Evidenced Based Beta Yariel Therapy Beta Yariel Therapy: Yes Beta Yariel Name: Carvedilol Beta Yariel Target Therapy: Not at Target Therapy JEWELS/ARB/ARNI Therapy JEWELS/ARB/ARNI Therapy: Yes JEWELS/ARB/ARNI Name: Entresto JEWELS/ARB/ARNI Target Therapy: Not at Target Therapy Aldosterone Antagonist Therapy Aldosterone Antagonist Therapy: Yes Aldosterone Antagonist Name: Spironolactone SGLT-2 Inhibitor Therapy SGLT-2 Inhibitor Therapy: Contraindicated SGLT-2 Inhibitor Contraindications: Other (Azotemic) Coding Level of Care Code 42443 [facility] INP/OBS CARE MIN Diagnoses Dilated cardiomyopathy I42.0 Cardiomyopathy type: dilated HFrEF (heart failure with reduced ejection fraction) I50.20 (1) Cardiomyopathy Cardiomyopathy type: dilated Qualified Code(s): I42.0 - Dilated cardiomyopathy
--- NOTE | 2023-11-25 13:23 | Hospitalist Progress Note ---
Date of Service November 25, 2023 Assessment & Plan (1) CHF (congestive heart failure): Plan: Acute on chronic heart failure with reduced ejection fraction, possibly from Afib. P/w one week of increased REEDER and associated substernal chest pressure - BNP mildly elevated at 243, initial high sen trop is WNL, and ECG shows afib without acute ST segment or T-wave changes ECHO w/ prior EF 40-45% --> with repeat ECHO 10/26/23 noting LV systolic function moderately reduced to 30-35%, mild AR/moderate MR Cards consulted Started spironolactone and lowered dose of lasix to 20mg daily-given ongoing orthostasis and after large amount of diuresis-hold Lasix and only give 20mg pr n, and lowered spironolactone to 12.5 Mg daily Converted atenolol from home to Coreg 12.5mg po bid-given ongoing orthostasis- reduced dose to 6.25 Mg p.o. twice daily Added on Entresto but had significant orthostasis on 11/22--> HOLD for now and consider retrial of 1/2 tab bid in future, but cannot do so still having orthostasis although not as bad on 11/24 Consideration for SGLT2 w/ underlying DM-can be done as outpt with CHF clinic but not likely to tolerate given ongoing orthostasis Referred to CHF Clinic Improving with weight loss, net neg fluid balance, and now weaned off supplemental O2. Two-step walk test prior to discharge is normal Follow BMP, mag--dcd po magnesium as is causing abdominal distress [employer] slight rise to 1.2 today Follow daily orthostatics (2) Atrial fibrillation: Plan: Remains in afib, rates controlled but had been low per outpt note and diltiazem was stopped atenolol converted to carvedilol as above with improvement in rate Continues on home Eliquis Continue to monitor on tele (3) Hypokalemia: Plan: resolved follow BMP as started aldactone (4) Chest pressure: Plan: No further pressure reported, just continued issues w/ exertional shortness of breath but this is improving Troponin levels NOT elevated 2/2 CHF (5) Cardiomyopathy: Plan: Will need f/u eval for cardiomyopathy but no need for urgent cath at this time and DO NOT suspect unstable angina at this time. Dc'd nitropaste 11/20 and no CP reported and having improvement in her REEDER w/ medication changes/diuresis as above (6) High cholesterol: Plan: Continue statin (7) Diabetes mellitus, type 2: Plan: HgbA1c 7.4%, well controlled resumed home metformin, continue BSG AC/HS, declines Novolog SSI recommend f/u CHF clinic to start SGLT2 possibly in future (8) Hypothyroidism: Plan: TSH normal at 2.4 continue home LT4 (9) Abdominal pain: Plan: Diffuse, mild, ongoing and likely related to constipation seen on KUB on 11/23 Added MiraLAX but not helping add Metamucil she takes at home Previously stopped magnesium which may have been exacerbating this Plan DVT proph-Eliquis Dispo-continued stay, possible dc in 1 day if orthostasis resolved Admission and Anticipated Discharge Date Admission Date: November 19, 2023 Anticipated date of discharge: 11/26/23 Subjective Was feeling well this AM but then after she went for a walk with RT, later felt weak and lightheaded again-BP dropped to 88 systolic.Now sitting in a chair and feels fine again. Still no BM and abd still uncomfortable Tele with Afib, rates 60-70s I discussed her care with CHF clinic PA Physical Exam Constitutional: WD/WN, vitals as above Respiratory: normal respiratory effort, lungs clear to auscultation Cardiovascular: Rate/Rhythm: regular rate and + irregularly irregular Heart Sounds: no murmur Gastrointestinal (Abdomen): Inspection/Auscultation: abdomen normal to inspection Percussion/Palpation: + abdomen tender (mild, diffuse) and abdomen soft; no guarding Psychiatric: A+Ox3, euthymic affect Results & Data Results & Data Vital Signs (Past 12 Hours) Vital Signs Temp Pulse Pulse Pulse Pulse Resp Resp 11/25/23 11:33 11/25/23 10:17 88 71 22 11/25/23 10:06 70 11/25/23 08:30 11/25/23 08:00 11/25/23 07:59 36.7 C 66 18 11/25/23 03:16 36.5 C 74 18 Resp BP Pulse Ox Pulse Ox Pulse Ox Pulse Ox O2 Del Method 11/25/23 11:33 111/65 96 Room Air 11/25/23 10:17 16 93 97 11/25/23 10:06 11/25/23 08:30 Room Air 11/25/23 08:00 94 11/25/23 07:59 114/75 94 Room Air 11/25/23 03:16 115/57 L 97 Room Air O2 Del Method 11/25/23 11:33 11/25/23 10:17 11/25/23 10:06 11/25/23 08:30 11/25/23 08:00 Room Air 11/25/23 07:59 11/25/23 03:16 Laboratory Results CBC, BMP, magnesium reviewed PG Care Time/CCT Total # of Minutes Spent Total Time Spent with Patient: Total time spent is greater than 50% in coordination of care (as documented) at patient's floor/unit and/or counseling patient: Coding Level of Care Code 52684 SUB INP/OBS CARE 2/35MIN Diagnoses Acute on chronic systolic congestive heart failure I50.23 Heart failure chronicity: acute on chronic Heart failure type: systolic Permanent atrial fibrillation I48.21 Atrial fibrillation type: permanent Hypokalemia E87.6 Chest pressure R07.89 Dilated cardiomyopathy I42.0 Cardiomyopathy type: dilated High cholesterol E78.00 Diabetes mellitus, type 2 E11.9 Hypothyroidism E03.9 Abdominal pain R10.9 (1) CHF (congestive heart failure) Heart failure chronicity: acute on chronic Heart failure type: systolic Qualified Code(s): I50.23 - Acute on chronic systolic (congestive) heart failure (2) Atrial fibrillation Atrial fibrillation type: permanent Qualified Code(s): I48.21 - Permanent atrial fibrillation (5) Cardiomyopathy Cardiomyopathy type: dilated Qualified Code(s): I42.0 - Dilated cardiomyopathy
[2023-11-25] MEDS: PSYLLIUM or GUAR GUM FIBER 4GM PACKET PO SCH (15:04)
[2023-11-26 06:50] LABS: BUN Creatinine Ratio 33.6 (10-20); Calcium 9.9 mg/dl (8.6-10.3); Creatinine Clr Calc Pharmacy 29.8 ml/min; Est GFR (African American) 42.3 ml/min; Est GFR (Non-African American) 36.5 ml/min; Magnesium 1.9 mg/dl (1.7-2.4); Potassium 4.8 mmol/L (3.5-5.1)
--- NOTE | 2023-11-26 10:54 | Discharge Summary ---
Discharge Summary Date of Service November 26, 2023 Notes For Next Care Provider Needs CHF clinic follow up-to be arranged by Caty Stallings PA-C Medication Changes From Visit Added Coreg 6.25mg po bid Stopped atenolol Added spironolactone 12.5mg po qAM Made lasix 20mg po daily prn weight gain or leg swelling Admission HPI Per Admitting Provider Mary Grace is an 88 year old female with a PMH significant for afib (on Eliquis), HTN, HFrEF (LVEF of 30-35%), moderate mitral regurgitation, Cardiomyopathy, hyperthyroidism, fibromyalgia who presented to the [facility] ED on via EMS with complaints of progressive SOB and chest heaviness. EMS noted the patient to be hypoxic with SpO2 in the 80s on arrival. On arrival to the ED she was noted to be hypertensive at 170/121, tachycardic with HR in the 90s, afebrile, and stable on 1L NC. Labs were significant for BUN of 31, AG of 13 with bicarb WNL, potassium of 3.0, mag of 1.6, BNP of 243, high sen trop WNL, an d UA with trace ketones and leukocyte esterase. Chest xray was read as mild cardiomegaly without other acute findings. Prior to admission the patient was given 40 mg IV lasix, 0.5 inches of Nitro paste, 40 meq PO KCL, and 10 meq IV KCL. At the time of the exam the patient was sitting in bed in no acute distress. I turned her oxygen to RA at the start of my exam and she remained stable on RA throughout. She states that she started to notice her chronic REEDER has been significantly worse over the past week. She has also been experiencing substernal chest pressure "like someone is sitting on my chest" with these episodes of REEDER. Her symptoms typically resolve with rest. Denies recent fever, chills, chest pain, palpitations, hemoptysis, productive cough, abd pain, nausea, vomiting, diarrhea, dysuria, hematuria, melena, LE swelling, and recent trauma. We discussed code status, she is a DNR/DNI and her son would make decisions for her if she cannot make them himself. Please refer to Dr. Zamarripa's attestation for any changes to the treatment plan Principal Dx & Hospital Course #1 = Principal Diagnosis (1) CHF (congestive heart failure): Acute on chronic heart failure with reduced ejection fraction, possibly from Afib. P/w one week of increased REEDER and associated substernal chest pressure - BNP mildly elevated at 243, initial high sen trop is WNL, and ECG shows afib without acute ST segment or T-wave changes ECHO w/ prior EF 40-45% --> with repeat ECHO 10/26/23 noting LV systolic function moderately reduced to 30-35%, mild AR/moderate MR Cardiology consulted Started spironolactone 25mg daily and lowered dose of lasix to 20mg daily. Also added on Entresto and Coreg 12.5mg bid-she then continued to have ongoing orthostasis after large amount of diuresis Held Lasix and made this 20mg prn, lowered spironolactone to 12.5 Mg daily, and lowered Coreg to 6.25 po bid, STOPPED Entresto---> still +orthostatics but BP now only dropping to 98 systolic and now asymptomatic Consider retrial of Entresto 24/26mg po bid 1/2 tab bid in future, but cannot do so still having orthostasis Consideration for SGLT2 w/ underlying DM-can be done as outpt with CHF clinic but not likely to tolerate given ongoing orthostasis Much improved, leg edema gone, dyspnea much improved, weight down Referred to CHF Clinic weaned off supplemental O2. Two-step walk test prior to discharge is normal quiller hand stable at 1.2-1.3, follow renal functino and lytes with CHF clinic as outpt Stable for discharge (2) Atrial fibrillation: Remains in afib, rates now controlled atenolol converted to carvedilol as above with improvement in rate Continues on home Eliquis (3) Hypokalemia: resolved follow BMP as outpt (4) Chest pressure: No further pressure reported, just continued issues w/ exertional shortness of breath but this is improving Troponin levels NOT elevated 2/2 CHF (5) Cardiomyopathy: Will need f/u eval for cardiomyopathy but no need for urgent cath at this time and DO NOT suspect unstable angina at this time. Dc'd nitropaste 5/5 and no CP reported and having improvement in her REEDER w/ medication changes/diuresis as above (6) High cholesterol: Continue statin (7) Diabetes mellitus, type 2: HgbA1c 7.4%, well controlled continue home metformin recommend f/u CHF clinic to start SGLT2 possibly in future (8) Hypothyroidism: TSH normal at 2.4 continue home LT4 (9) Abdominal pain: Diffuse, mild, ongoing and likely related to constipation seen on KUB on 11/23 Abdomen exam benign Added MiraLAX but not helping added Metamucil she takes at home and still only small BM on 11/25--> gave bisacodyl PA and had improvement prior to discharge Plan DVT proph-Eliquis Dispo-dc to home with home health Discharge Exam Constitutional WD/WN, vitals as above Respiratory normal respiratory effort, lungs clear to auscultation Cardiovascular Rate/Rhythm: regular rate and + irregularly irregular Heart Sounds: no murmur Extremities: no edema Gastrointestinal (Abdomen) Inspection/Auscultation: abdomen normal to inspection and normal bowel sounds Percussion/Palpation: abdomen soft; abdomen nontender Psychiatric A+Ox3, euthymic affect Updated Medication List Medication Instructions Recorded Confirmed Type atorvastatin 40 mg tablet 40 mg PO DAILY 12/25/19 11/19/23 History glucosamine HCl 1,500 mg tablet 3,000 mg PO DAILY 12/25/19 11/19/23 History levothyroxine 88 mcg capsule 88 mcg PO DAILY 12/25/19 11/19/23 History apixaban 5 mg tablet (Eliquis) 5 mg PO BID 02/08/20 11/19/23 History cholecalciferol (vitamin D3) 25 1,000 units PO DAILY 02/08/20 11/19/23 History mcg (1,000 unit) capsule furosemide 40 mg tablet 40 mg PO DAILY 02/08/20 11/19/23 History icosapent ethyl 1 gram capsule 1 gm PO DAILY 02/08/20 11/19/23 History (Vascepa) metformin 500 mg tablet 500 mg PO BID 02/08/20 11/19/23 History multivitamin 1 tab PO DAILY 02/08/20 11/19/23 History potassium chloride 20 mEq 20 meq PO DAILY 02/08/20 11/19/23 History tablet,extended release vitamin E 268 mg (400 unit) capsule 400 unit PO DAILY 02/15/20 11/19/23 History atenolol 50 mg tablet 50 mg PO DAILY #90 tabs 06/25/20 11/19/23 Rx lisinopril 10 mg tablet 10 mg PO DAILY 06/25/20 11/19/23 History ascorbic acid (vitamin C) 500 mg 1,000 mg PO DAILY 01/08/22 11/19/23 History capsule Benefiber Tab 1 tab PO DIRECTED PRN 11/19/23 11/19/23 History Constipation acetaminophen 500 mg tablet 1,000 mg PO Q6H PRN Pain 11/19/23 11/19/23 History (Tylenol Extra Strength) carvedilol 6.25 mg tablet 6.25 mg PO BIDM #60 tabs 11/26/23 Rx furosemide 20 mg tablet (Lasix) 20 mg PO DAILY PRN weight gain or 11/26/23 Rx leg swelling #30 tabs spironolactone 25 mg tablet 12.5 mg (1/2 x 25 mg) PO QAM #15 11/26/23 Rx tabs Hospital Stay Data Consultations 11/19/23 20:05 Consult Cardiology Routine 11/19/23 21:43 ED Decision to Admit Stat Diagnostic Imagining Performed ECHO Pending Results Patient Have Any Pending Studies at Discharge: No Discharge Instructions Given to Patient (Per Discharging Provider) You have been hospitalized short shortness of breath with exertion. This is suspected related to your heart failure which does show a reduction in the pumping function of your heart on the most recent ultrasound obtained by Dr Chen. We are hopeful that making some medication changes will help strengthen your heart/pumping function and you have made improvements while in the hospital with these changes. You should continue a low salt diet and monitoring of your weights at home. At discharge, the following medication changes have been made: * STOP atenolol, START/continue carvedilol 6.25mg by mouth twice daily * STOP lisinopril * STARTED spironolactone 12.5mg (1/2 tablet) once daily * Continue lasix, but REDUCED to 20mg PO daily to be taken as needed for weight gain of 2-3 lbs/day or for leg swelling Continue metformin 500mg by mouth twice daily but recommend checking your blood sugars more frequently and monitoring your carb intake. You should have follow up with cardiology/CHF clinic which will be arranged for you. Call your Primary Care doctor if any of the following symptoms or problems start or get worse: * Shortness of breath or difficulty breathing * Wake up at night short of breath * Chest pain * Cough * Swelling of your hands, feet, or legs * More fatigued or tired with your normal activity * Palpitations - sudden fast heart beats WEIGHT * Weigh yourself every morning after using the bathroom. * Use the same scale. * Wear the same amount of clothing. * Write your weight down on a chart. * Call your Primary Care doctor if you gain more than 2-3 pounds in 1-2 days. MEDICATIONS * Use this discharge instruction sheet for medication instructions. * Take your medications at the time your doctor ordered. * Do not skip a dose of your medicines. * If you miss a dose of medicine, take it as soon as possible, but DO NOT DOUBLE A DOSE. * Read your medicine information when you get home. * Know all of the side effects of your medicine. If in doubt, ask your pharmacist * Call your Primary Care doctor's office if you have any side effects. * Be sure all of your doctors know what medicine and herbs you take (including cold, flu, and herbal medicine). Take the following with you to your follow-up doctor appointments: * Weight Chart * Medication List * List of questions Do not drink excessive alcohol, beer or wine. Total Time Total Time Spent Total Time Spent (In Minutes): 35 min Total Time Includes: Examination of the Patient, Discharge Planning, Medication Reconciliation and Other (case monitor) Coding Level of Care Code 89613 INP/OBS DISCH >30 MIN Diagnoses Acute on chronic systolic congestive heart failure I50.23 Heart failure chronicity: acute on chronic Heart failure type: systolic Permanent atrial fibrillation I48.21 Atrial fibrillation type: permanent Hypokalemia E87.6 Chest pressure R07.89 Dilated cardiomyopathy I42.0 Cardiomyopathy type: dilated High cholesterol E78.00 Diabetes mellitus, type 2 E11.9 Hypothyroidism E03.9 Abdominal pain R10.9
[2023-11-26] MEDS: bisacodyL 10 MG SUPP PR STA (11:15)
== END 2023-11-26 16:48 | disposition home health service (06) | DRG 291 ==
LOC: ED 16:06 → EDINP 19:19 → SUATTDRO 19:19 → 2W 22:29

== ENCOUNTER 2025-05-04 23:35 | Inpatient (IN) ==
[2025-05-05] MEDS: LIDOCAINE 1%/EPINEPHRINE 1:100,000 50 ML VIAL ONE (00:13)
[2025-05-05 00:31] LABS: Hematocrit (blood only) 23.2 % (37.0-47.0); Hemoglobin 7.1 g/dl (12.0-16.0); Immature Granulocytes # (auto) 0.04 K/uL (0.01-0.20); Immature Granulocytes % (auto) 0.8 %; Mean Corpuscular Hemoglobin 30.5 pg (25.0-34.0); Mean Corpuscular Volume 99.6 fL (80.0-100.0); Platelet Count 166 K/uL (130-400); RDW Standard Deviation 50.2 fL (36.4-46.3); Red Blood Count 2.33 M/uL (4.20-5.40); White Blood Count 4.89 K/ul (4.8-10.8)
[2025-05-05 00:56] LABS: RBC Morphology Unremarkable
[2025-05-05 01:00] LABS: INR 1.3 (0.9-1.1); Partial Thromboplastin Time 24 Seconds (21-31); Prothrombin Time 13.2 Seconds (9.0-12.0)
[2025-05-05 01:16] LABS: Alanine Aminotransferase 69.0 U/L (7-52); Albumin Globulin Ratio 1.5 (0.9-2); Albumin Level 2.4 gm/dl (3.4-5.0); Alkaline Phosphatase 45.0 U/L (34-104); Anion Gap 14.0 (3-11); Bilirubin,Total 0.3 mg/dl (0.2-1.0); Blood Urea Nitrogen 34.0 mg/dl (6-23); Calcium 7.8 mg/dl (8.6-10.3); Carbon Dioxide 15.0 mmol/L (21-32); Chloride 108.0 mmol/L (98-107); Creatinine Clr Calc Pharmacy 15.6 ml/min; Globulin 1.6 gm/dl (2.5-4.0); Glucose 402.0 mg/dl (70-99(Fasting)); Lipase 45.0 U/L (11-82); Potassium 4.6 mmol/L (3.5-5.1); Sodium 137.0 mmol/L (136-145); Total Protein 4.0 gm/dl (6.0-8.3)
--- NOTE | 2025-05-05 01:20 | CT Scan Report ---
EXAM: CT head/brain wo con CLINICAL HISTORY: Trauma TECHNIQUE: Multiple axial images were obtained from the skull base to the vertex without contrast. CT scan was performed according to ALARA (as low as reasonably achievable). COMPARISON: None. FINDINGS: There is cerebral atrophy. There is no evidence of space-occupying lesion, hemorrhage, edema, mass effect, midline shift, extra-axial collection, or hydrocephalus. The basal cisterns are symmetric and normal in size and configuration. There are scattered periventricular hypodensities, as can be seen with chronic microvascular ischemic changes. The dsouza-white matter differentiation is preserved. Right maxillary sinusitis is present. The rest of the paranasal sinuses and mastoid air cells are well aerated. Orbital contents are within normal limits. Bony structures are intact. IMPRESSION: 1. No evidence of acute intracranial abnormality is demonstrated. 2. Chronic microvascular ischemic changes. 3. Cerebral atrophy. Electronically signed by Rogers Cordon 05-05-2025 01:20 AM
--- NOTE | 2025-05-05 01:55 | XRay Report ---
EXAM: XR chest 1V portable CLINICAL HISTORY: Trauma. TECHNIQUE: An X-ray image of the chest is obtained in AP projection. COMPARISON: No prior studies are available for comparison. FINDINGS: Pulmonary Parenchyma: Expiratory image with evidence of emphysematous changes of both lung pierce. No evidence of consolidation, collapse, or focal opacities. No pulmonary nodules are identified. Obliterated left costophrenic angle suggesting underlying mild pleural effusion. No evidence of right pleural effusion or pleural thickening. Heart and Mediastinum: Heart size enlarged in size with the bilateral congested nolvia. Calcified aortic arch wall No mediastinal widening or masses. No hilar or mediastinal lymphadenopathy. Bony Thorax: Spondylosis of the thoracic spine. Bony thorax appears intact without fractures or deformities. Soft Tissues: Soft tissues overlying the chest wall are unremarkable. IMPRESSION: 1. Expiratory image with evidence of emphysematous changes of both lung pierce. 2. Obliterated left costophrenic angle suggesting underlying mild pleural effusion. 3. Cardiomegaly with bilateral congested nolvia and calcified aortic arch wall. Electronically signed by Loc Perkins 05-05-2025 01:55 AM
--- NOTE | 2025-05-05 02:04 | CT Scan Report ---
EXAM: CT cervical spine wo con CLINICAL HISTORY: Trauma TECHNIQUE: Computed tomography of the cervical spine was performed without intravenous contrast. Contiguous axial images were obtained from the skull base to T2, with sagittal and coronal reformatted images reconstructed from the axial data. The CT scan was performed according to ALARA (as low as reasonably achievable). COMPARISON: None. FINDINGS: There is loss of cervical lordosis, suggesting the possibility of muscle spasm or positional change. There are degenerative changes involving the cervical spine in the form of multilevel marginal osteophytes, disc space reduction, and facetal arthrosis. The cervical vertebral bodies are normal in height and alignment, with no evidence of fracture or subluxation. The lateral masses of C1 are symmetrical, and the dens is intact. The prevertebral soft tissues are not widened. The remaining suprahyoid and infrahyoid soft tissues in the neck are unremarkable. Posterior uncovertebral arthrosis is noted at the C4-C5 to C6-C7 levels, which is indenting the ventral thecal sac and causing bilateral neuroforaminal narrowing. The thyroid gland appears unremarkable. IMPRESSION: 1. No acute fracture or subluxation in the cervical spine. 2. Cervical spondylosis. Electronically signed by Rogers Cordon 05-05-2025 02:03 AM
--- NOTE | 2025-05-05 02:16 | History & Physical Report ---
Date of Service May 05, 2025 Assessment & Plan (1) Bleeding from wound: (2) Acute blood loss anemia: (3) Atrial fibrillation: (4) HFrEF (heart failure with reduced ejection fraction): (5) Diabetes mellitus, type 2: (6) Hypothyroidism: Plan 89yo female presenting with significant bleeding from wound on LLE. #Bleeding from wound / Acute blood loss anemia - Patient with bleeding from small wound on LLE. Acute blood loss anemia - Hgb=7.1 and Hct=23.2. Last values on record from April 2024 with Hgb=13.7 and Hct=42.8. Possibly arterial wound as blood described as "spurting" with copious loss. Wound not directly visualized by me as dressing in place -Admit to PCU -Maintain two large bore PIVs -Maintain pressure dressing on LLE -Check LLE angiogram for visualization of vasculature -Administer calcium gluconate x 2gm now -Check CBC, Fibrinogen now -CBC q 6 hours - transfuse for ongoing bleed or Hgb <8 -Pending results of angio may need Vascular Surgery assistance #Elevated troponin - patient denies chest pain or SOB. Likely due to demand ischemia in setting of hypotension and hypoxia. No ischemic changes on EKG -Trend troponin to peak -Telemetry monitoring #Atrial fibrillation -Hold Eliquis due to severe bleed -Hold Carvedilol for now due to acute bleed and hypotension #HFrEF - patient appears compensated -Hold Lasix, Entresto, Spironolactone and Carvedilol for now -Monitor volume status after transfusions - may require small dose of Lasix #Diabetes -Hold Metformin -Lantus 10u qAM -ISS #Trauma Alert - scans are unremarkable for acute fracture or internal injury. No additional injury noted during exam -SCDs to bilateral LE - chemoprophylaxis for DVT contraindicated in severe, acute bleed History of Present Illness Chief Complaint: hemorrhage, acute blood loss anemia Primary Care Provider: Jonny Preston PA-C Mary Grace Iyer is an 89yo female with history of atrial fibrillation on Apixaban anticoagulation, HF with reduced EF (30-35% per echo 10/26/2023 with mild AR and moderate MR) and diabetes presenting with hemorrhage from LLE wound and acute blood loss anemia. Patient states that months ago she noted a small wound a "funny little thing" on her left lateral ankle. This evening she scratched the wound and dislodged a scab which led to severe bleeding and "spurting blood". 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 EMS was called to the home and noted a significant amount of blood all over the home. Patient was hypoxic at 80% initially, placed on supplemental O2 with improvement. Her ankle wound was dressed with QuickClot gauze. Upon arrival she was hypotensive with elevated heart rate of 96 bpm. Her dressing was removed and there was copious amount of bleeding from the lesion. ER Attending placed a Figure-8 stitch in the wound and applied a pressure dressing. Patient transiently hypotensive in the ER with blood pressure as low as 63/43. Transfused 2u PRBCs Patient complaining of back pain currently - states she has chronic back pain due to bulging disc. Otherwise no complaints. Denies fever, chills, chest pain, cough, SOB, abdominal pain, nausea, vomiting, diarrhea Allergies Allergy/AdvReac Type Severity Reaction Status Date / Time dexamethasone Allergy Severe EDEMA Verified 05/04/25 23:52 AIRWAY, RASH lidocaine Allergy Severe EDEMA Verified 05/04/25 23:52 AIRWAY, RASH propoxycaine AdvReac Intermediate HALLUCINATI Verified 05/04/25 23:52 ONS Home Medications Medication Instructions Recorded Confirmed Type atorvastatin 40 mg tablet 40 mg PO DAILY 12/25/19 05/04/25 History glucosamine HCl 1,500 mg tablet 3,000 mg PO DAILY 12/25/19 05/04/25 History levothyroxine 88 mcg capsule 88 mcg PO DAILY 12/25/19 05/04/25 History apixaban 5 mg tablet (Eliquis) 5 mg PO BID 02/08/20 05/04/25 History cholecalciferol (vitamin D3) 25 1,000 units PO DAILY 02/08/20 05/04/25 History mcg (1,000 unit) capsule icosapent ethyl 1 gram capsule 1 gm PO DAILY 02/08/20 05/04/25 History (Vascepa) metformin 500 mg tablet 500 mg PO BID 02/08/20 05/04/25 History multivitamin 1 tab PO DAILY 02/08/20 05/04/25 History vitamin E 268 mg (400 unit) capsule 400 unit PO DAILY 02/15/20 05/04/25 History ascorbic acid (vitamin C) 500 mg 1,000 mg PO DAILY 01/08/22 05/04/25 History capsule Benefiber Tab 1 tab PO DIRECTED PRN 11/19/23 05/04/25 History Constipation acetaminophen 500 mg tablet 1,000 mg PO Q6H PRN Pain 11/19/23 05/04/25 History (Tylenol Extra Strength) furosemide 20 mg tablet (Lasix) 20 mg PO DAILY PRN weight gain or 11/26/23 05/04/25 Rx leg swelling #30 tabs cholecalciferol (vitamin D3) 50 50 mcg PO DAILY 12/14/23 05/04/25 History mcg (2,000 unit) capsule meclizine 25 mg tablet 25 mg PO BID PRN Dizziness 12/14/23 05/04/25 History spironolactone 25 mg tablet 12.5 mg (1/2 x 25 mg) PO QAM #180 12/23/23 05/04/25 Rx tabs carvedilol 6.25 mg tablet 6.25 mg PO BIDM #180 tabs 07/17/24 05/04/25 Rx omega-3s 720 mg-dha 300 mg-epa 360 1 cap PO DAILY 12/18/24 05/04/25 History mg-fish oil 1,200 mg capsule sacubitril 24 mg-valsartan 26 mg 1 tab PO BID 12/18/24 05/04/25 History tablet (Entresto) Past Med/Surg History Problem List (Updated 05/05/25 @ 03:28 by Didi Bianchi DO) Bleeding from wound Acute blood loss anemia Heart failure with mildly reduced ejection fraction (HFmrEF) Abdominal pain Hypothyroidism HFrEF (heart failure with reduced ejection fraction) Diabetes mellitus, type 2 Hypomagnesemia Atrial fibrillation (Acute) Cardiomyopathy Fatigue Mitral regurgitation Aortic stenosis HBP (high blood pressure) Encounter for pre-operative examination High cholesterol Urinary incontinence Arthritis Fibromyalgia Hyperthyroidism Diastolic congestive heart failure Atrial fibrillation Anticoagulant long-term use (Acute) Medical History Overactive bladder Basal cell carcinoma of nose Congestive heart failure Admitted October 2019 for diastolic CHF at [facility]- per cardio note 02/08/20- CHF now corrected with meds and patient feels well Atrial fibrillation reason for scheduled cardioversion, reason for eliquis Benign thyroid cyst Bowel obstruction Surgical History History of bilateral tubal ligation History of dilatation and curettage History of varicose vein ligation and stripping bilt History of colonoscopy History of esophagogastroduodenoscopy (EGD) History of Mohs micrographic surgery for skin cancer History of tooth extraction all teeth History of lumpectomy of right breast benign S/P thyroid biopsy History of thyroid surgery benign lump removal History of bilateral cataract extraction History of cardiac cath [address] [facility] d/t SOB--no stents placed [address] [facility]--no stents placed H/O exploratory laparotomy Family History Mother Diabetes Heart disease Cancer Sister Diabetes Heart disease Brother Cancer Hypertension Other No family history of adverse response to anesthesia Social History Smoking Status: Never smoker Second Hand Exposure: No; Do You Dip or Chew Tobacco: No; Hx Alcohol Use: No Hx Substance Use: No Preferred Language: Danish Communication Ability: Effective Clerk Travel Reservations Required: No Beliefs That Will Affect Care: None marital status: Current Living Situation: Alone current occupational status: retired Feels Safe at Home: Yes Assistive Devices: Cane, Walker and Other Review of Systems Review of Systems: All systems reviewed & are unremarkable except as noted in HPI & below Physical Exam Physical Exam: General: patient resting comfortably, NAD, non-toxic in appearance, AA&O x 4 Skin: warm, dry, intact, no rashes or lesions HEENT: NC/AT, PERRL, EOMI, anicteric sclera, conjunctiva without injection, external ear normal to inspection and nontender, nares patent, moist mucus membranes, dentition intact, no oropharyngeal lesions, neck supple, trachea midline, no LAD, no thyromegaly, no JVD Heart: +S1/S2, irregularly irregular, no m/r/g Lungs: equal air entry bilaterally, no rales/rhonchi/wheezes Abd: +BS, soft, NT/ND, no masses/organomegaly/ascites Ext: warm, 2+ pulses in UE/LE bilaterally, no clubbing/cyanosis or edema, pressure dressing present on LLE, no active bleeding noted Neuro: nonfocal, patient AA&O x 4, speech intact, no facial droop, moving all extremities on command with equal strength 5/5 Results & Data Results & Data Vital Signs (Past 12 Hours) Vital Signs Temp Pulse Pulse Resp BP BP Pulse Ox 05/05/25 01:20 74 19 92/52 L 100 05/05/25 01:16 70 20 79/66 L 100 05/05/25 01:10 67 24 93/54 L 98 05/05/25 01:05 76 20 90/58 L 100 05/05/25 01:05 100 05/05/25 01:00 73 20 82/54 L 100 05/05/25 01:00 68 20 93/54 L 100 05/05/25 00:56 68 20 84/39 L 100 05/05/25 00:50 72 20 79/42 L 98 05/05/25 00:45 75 22 76/39 L 100 05/05/25 00:35 70 20 76/41 L 100 05/05/25 00:31 86 20 79/66 L 100 05/05/25 00:16 80 19 79/38 L 100 05/05/25 00:10 84 20 82/49 L 100 05/05/25 00:07 100 05/05/25 00:06 86 19 63/43 L 100 05/05/25 00:01 72 18 68/36 L 99 05/04/25 23:55 79/46 L 05/04/25 23:50 77 23 72/44 L 93 05/04/25 23:48 92 H 22 82/46 L 98 05/04/25 23:45 83 22 83/49 L 97 05/04/25 23:40 88 22 76/46 L 98 05/04/25 23:40 76 22 100 05/04/25 23:39 99 H 05/04/25 23:36 71 18 84/39 L 100 05/04/25 23:36 36.7 C 73 25 H 76/39 L 100 05/04/25 23:36 36.6 C 96 H 24 76/46 L 100 O2 Del Method O2 Flow Rate 05/05/25 01:20 Oxymask 6 05/05/25 01:16 Oxymask 6 05/05/25 01:10 Oxymask 6 05/05/25 01:05 Oxymask 6 05/05/25 01:05 Oxymask 6 05/05/25 01:00 Oxymask 6 05/05/25 01:00 Oxymask 6 05/05/25 00:56 Oxymask 6 05/05/25 00:50 Oxymask 6 05/05/25 00:45 Oxymask 6 05/05/25 00:35 Oxymask 6 05/05/25 00:31 Oxymask 6 05/05/25 00:16 Oxymask 6 05/05/25 00:10 Oxymask 6 05/05/25 00:07 Oxymask 8 05/05/25 00:06 Oxymask 6 05/05/25 00:01 Oxymask 6 05/04/25 23:55 05/04/25 23:50 Oxymask 8 05/04/25 23:48 Oxymask 8 05/04/25 23:45 Non-rebreather 15 05/04/25 23:40 Non-rebreather 15 05/04/25 23:40 Oxymask 8 05/04/25 23:39 05/04/25 23:36 Oxymask 6 05/04/25 23:36 Non-rebreather 15 05/04/25 23:36 Non-rebreather 15 Laboratory Results Laboratory Results WBC 4.89 K/ul (4.8-10.8) 05/04/25 23:40 RBC 2.33 M/uL (4.20-5.40) L 05/04/25 23:40 Hgb 7.1 g/dl (12.0-16.0) L 05/04/25 23:40 POC Hgb 8.2 g/dl (12.0-16.0) L 05/05/25 00:48 Hct 23.2 % (37.0-47.0) L 05/04/25 23:40 POC Hct 24 % (37-47) L 05/05/25 00:48 MCV 99.6 fL (80.0-100.0) 05/04/25 23:40 MCH 30.5 pg (25.0-34.0) 05/04/25 23:40 MCHC 30.6 g/dL (32.0-36.0) L 05/04/25 23:40 RDW Std Deviation 50.2 fL (36.4-46.3) H 05/04/25 23:40 RDW Coeff of Jese 13.9 % (11.5-14.5) 05/04/25 23:40 Plt Count 166 K/uL (130-400) 05/04/25 23:40 MPV 11.9 fL (9.4-12.4) 05/04/25 23:40 Immature Gran % (Auto) 0.8 % 05/04/25 23:40 Neut % (Auto) 52.0 % 05/04/25 23:40 Lymph % (Auto) 36.0 % 05/04/25 23:40 [place] % (Auto) 6.7 % 05/04/25 23:40 Eos % (Auto) 3.9 % 05/04/25 23:40 Baso % (Auto) 0.6 % 05/04/25 23:40 Neut # (Auto) 2.54 K/uL (1.40-6.50) 05/04/25 23:40 Lymph # (Auto) 1.76 K/uL (1.20-3.40) 05/04/25 23:40 [place] # (Auto) 0.33 K/uL (0.11-0.59) 05/04/25 23:40 Eos # (Auto) 0.19 K/uL (0.00-0.50) 05/04/25 23:40 Baso # (Auto) 0.03 K/uL (0.00-0.20) 05/04/25 23:40 Immature Gran # (Auto) 0.04 K/uL (0.01-0.20) 05/04/25 23:40 RBC Morphology Unremarkable 05/04/25 23:40 PT 13.2 Seconds (9.0-12.0) H 05/04/25 23:40 INR 1.3 (0.9-1.1) H 05/04/25 23:40 APTT 24 Seconds (21-31) 05/04/25 23:40 PTT Ratio 0.9 05/04/25 23:40 POC Sodium 139 mmol/L (135-144) 05/05/25 00:48 Sodium 137 mmol/L (136-145) 05/04/25 23:40 POC Potassium 5.8 mmol/L (3.3-5.0) H 05/05/25 00:48 Potassium 4.6 mmol/L (3.5-5.1) 05/04/25 23:40 POC Chloride 107 mmol/L (101-112) 05/05/25 00:48 Chloride 108 mmol/L (98-107) H 05/04/25 23:40 Carbon Dioxide 15 mmol/L (21-32) L 05/04/25 23:40 POC Total CO2 20 mmol/L (24-31) L 05/05/25 00:48 Anion Gap 14 (3-11) H 05/04/25 23:40 POC Anion Gap 19.0 mmol/L (16-25) 05/05/25 00:48 POC BUN 37 mg/dl (7-18) H 05/05/25 00:48 BUN 34 mg/dl (6-23) H 05/04/25 23:40 Creatinine 2.47 mg/dl (0.6-1.2) H 05/04/25 23:40 POC Creatinine 2.5 mg/dl (0.6-1.3) H 05/05/25 00:48 Est Cr Clr Drug Dosing 15.6 ml/min 05/04/25 23:40 eGFR 18.20 05/04/25 23:40 BUN/Creatinine Ratio 13.8 (10-20) 05/04/25 23:40 Glucose 402 mg/dl (70-99(Fasting)) H* 05/04/25 23:40 POC Glucose (other) 310 mg/dl (70-99) H 05/05/25 00:48 Calcium 7.8 mg/dl (8.6-10.3) L 05/04/25 23:40 POC Ioniz Calcium Jia 1.09 mmol/l (1.12-1.32) L 05/05/25 00:48 Total Bilirubin 0.3 mg/dl (0.2-1.0) 05/04/25 23:40 AST 118 U/L (13-39) H 05/04/25 23:40 ALT 69 U/L (7-52) H 05/04/25 23:40 Alkaline Phosphatase 45 U/L (34-104) 05/04/25 23:40 Troponin I High Sens 51.0 pg/ml (0-14) H* D 05/05/25 02:07 Total Protein 4.0 gm/dl (6.0-8.3) L 05/04/25 23:40 Albumin 2.4 gm/dl (3.4-5.0) L 05/04/25 23:40 Globulin 1.6 gm/dl (2.5-4.0) L 05/04/25 23:40 Albumin/Globulin Ratio 1.5 (0.9-2) 05/04/25 23:40 Lipase 45 U/L (11-82) 05/04/25 23:40 Blood Type O Positive 05/04/25 23:40 Blood Type Recheck O Positive 05/05/25 01:05 Antibody Screen NEGATIVE 05/04/25 23:40 Crossmatch See Detail 05/05/25 01:05 Impressions Chest X-Ray 05/05/25 00:07 EXAM: XR chest 1V portable CLINICAL HISTORY: Trauma. TECHNIQUE: An X-ray image of the chest is obtained in AP projection. COMPARISON: No prior studies are available for comparison. FINDINGS: Pulmonary Parenchyma: Expiratory image with evidence of emphysematous changes of both lung pierce. No evidence of consolidation, collapse, or focal opacities. No pulmonary nodules are identified. Obliterated left costophrenic angle suggesting underlying mild pleural effusion. No evidence of right pleural effusion or pleural thickening. Heart and Mediastinum: Heart size enlarged in size with the bilateral congested nolvia. Calcified aortic arch wall No mediastinal widening or masses. No hilar or mediastinal lymphadenopathy. Bony Thorax: Spondylosis of the thoracic spine. Bony thorax appears intact without fractures or deformities. Soft Tissues: Soft tissues overlying the chest wall are unremarkable. IMPRESSION: 1. Expiratory image with evidence of emphysematous changes of both lung pierce. 2. Obliterated left costophrenic angle suggesting underlying mild pleural effusion. 3. Cardiomegaly with bilateral congested nolvia and calcified aortic arch wall. Electronically signed by Loc Perkins 05-05-2025 01:[address] 05/05/25 00:08 EXAM: CT cervical spine wo con CLINICAL HISTORY: Trauma TECHNIQUE: Computed tomography of the cervical spine was performed without intravenous contrast. Contiguous axial images were obtained from the skull base to T2, with sagittal and coronal reformatted images reconstructed from the axial data. The CT scan was performed according to ALARA (as low as reasonably achievable). COMPARISON: None. FINDINGS: There is loss of cervical lordosis, suggesting the possibility of muscle spasm or positional change. There are degenerative changes involving the cervical spine in the form of multilevel marginal osteophytes, disc space reduction, and facetal arthrosis. The cervical vertebral bodies are normal in height and alignment, with no evidence of fracture or subluxation. The lateral masses of C1 are symmetrical, and the dens is intact. The prevertebral soft tissues are not widened. The remaining suprahyoid and infrahyoid soft tissues in the neck are unremarkable. Posterior uncovertebral arthrosis is noted at the C4-C5 to C6-C7 levels, which is indenting the ventral thecal sac and causing bilateral neuroforaminal narrowing. The thyroid gland appears unremarkable. IMPRESSION: 1. No acute fracture or subluxation in the cervical spine. 2. Cervical spondylosis. Electronically signed by Rogers Cordon 05-05-2025 02:[address] 05/05/25 00:08 EXAM: CT head/brain wo con CLINICAL HISTORY: Trauma TECHNIQUE: Multiple axial images were obtained from the skull base to the vertex without contrast. CT scan was performed according to ALARA (as low as reasonably achievable). COMPARISON: None. FINDINGS: There is cerebral atrophy. There is no evidence of space-occupying lesion, hemorrhage, edema, mass effect, midline shift, extra-axial collection, or hydrocephalus. The basal cisterns are symmetric and normal in size and configuration. There are scattered periventricular hypodensities, as can be seen with chronic microvascular ischemic changes. The dsouza-white matter differentiation is preserved. Right maxillary sinusitis is present. The rest of the paranasal sinuses and mastoid air cells are well aerated. Orbital contents are within normal limits. Bony structures are intact. IMPRESSION: 1. No evidence of acute intracranial abnormality is demonstrated. 2. Chronic microvascular ischemic changes. 3. Cerebral atrophy. Electronically signed by Rogers Cordon 05-05-2025 01:20 AM Code Status & VTE Plan VTE Prophylaxis Plan VTE Prophylaxis will be ordered: Yes PG Care Time/CCT Total # of Minutes Spent Total Time Spent with Patient: Total time spent is greater than 50% in coordination of care (as documented) at patient's floor/unit and/or counseling patient: Coding Level of Care Code 02871 INT INP/OBS CARE MIN Diagnoses Bleeding from wound T14.8XXA Acute blood loss anemia D62 Permanent atrial fibrillation I48.21 Atrial fibrillation type: permanent HFrEF (heart failure with reduced ejection fraction) I50.20 Diabetes mellitus, type 2 E11.9 Hypothyroidism E03.9 (3) Atrial fibrillation Atrial fibrillation type: permanent Qualified Code(s): I48.21 - Permanent atrial fibrillation
[2025-05-05] MEDS ORDERED: ONDANSETRON INJ 2 MG/ML 2 ML VIAL IV PRN (03:44)
[2025-05-05] MEDS ORDERED: GLUCOSE 40% GEL 15 GM TUBE PO PRN (03:44)
[2025-05-05] MEDS ORDERED: GLUCAGON FOR INJ 1 MG VIAL SQ PRN (03:44)
[2025-05-05] MEDS ORDERED: GLUCOSE 10 TAB/TUBE PO PRN (03:44)
[2025-05-05] MEDS ORDERED: CARBOHYDRATES FOR HYPOGLYCEMIA PO PRN (03:44)
[2025-05-05] MEDS ORDERED: DEXTROSE 50% 50 ML SYRINGE IV PRN (03:44)
[2025-05-05] MEDS: CALCIUM GLUCONATE 1,000 MG/60 ML BAG IV SCH (04:16)
[2025-05-05 05:16] LABS: Hematocrit (blood only) 35.1 % (37.0-47.0); Hemoglobin 11.4 g/dl (12.0-16.0); Mean Corpuscular Hemoglobin 29.3 pg (25.0-34.0); Mean Corpuscular Volume 90.2 fL (80.0-100.0); Platelet Count 171 K/uL (130-400); RDW Standard Deviation 51.2 fL (36.4-46.3); Red Blood Count 3.89 M/uL (4.20-5.40); White Blood Count 13.59 K/ul (4.8-10.8)
[2025-05-05] MEDS: LEVOTHYROXINE SODIUM 88 MCG TABLET PO SCH (05:33)
[2025-05-05 05:38] LABS: Fibrinogen 260 mg/dl (184-400)
[2025-05-05 05:44] LABS: Alanine Aminotransferase 108.0 U/L (7-52); Albumin Level 3.2 gm/dl (3.4-5.0); Alkaline Phosphatase 56.0 U/L (34-104); Anion Gap 11.0 (3-11); Bilirubin,Total 1.2 mg/dl (0.2-1.0); Blood Urea Nitrogen 41.0 mg/dl (6-23); Calcium 9.1 mg/dl (8.6-10.3); Carbon Dioxide 22.0 mmol/L (21-32); Chloride 108.0 mmol/L (98-107); Creatinine Clr Calc Pharmacy 19.6 ml/min; Glucose 240.0 mg/dl (70-99(Fasting)); Potassium 4.4 mmol/L (3.5-5.1); Sodium 141.0 mmol/L (136-145); Total Protein 5.3 gm/dl (6.0-8.3)
[2025-05-05] MEDS: INSULIN ASPART PER UNIT CHARGE SC STA (06:13)
--- NOTE | 2025-05-05 06:13 | Emergency Department Note ---
Impression & Plan Acute blood loss anemia, Acute hemorrhage, Fall, OMER (acute kidney injury), Elevated troponin, [facility] NAME: IAM ALICIA AGE: 89 SEX: Female INFORMANT: Patient ED PROVIDER(S): Cony Polanco DO CHIEF COMPLAINT: bleeding from left leg; fall PLAN: Disposition: admit to the [facility] MEDICAL DECISION MAKING: This is an 89-year-old female patient who describes having a chronic wound on her left ankle which began to bleed around 830 this evening. She tried to get the bleeding to stop by using paper towels, napkins and toilet paper but was unsuccessful. The bleeding became much heavier and was spurting as she described it. The patient does take Eliquis for A-fib. She attempted to make it to a neighbors place to get help but became weak and fell to the ground. EMS was called. Patient was transported to the emergency department as a trauma alert. Patient had no other signs of trauma from the fall. She had a tourniquet in place with quick clot over the ankle wound. Patient was presenting blood pressure was 62/40. She was extremely lethargic. Patient had received 500 cc of crystalloid in the field. She was ordered to have a second 500 cc bolus. A second large-bore IV lock was initiated i-STAT blood work revealed a hemoglobin of 6.8. Patient was ordered to have 1 unit of uncrossed matched blood. I unwrapped the bandage, identified the wound and placed a [id number] suture for bleeding control. A pressure bandage was replaced. Patient had good sensation to her toes and capillary refill. Patient's blood pressure began to elevate slowly. A repeat hemoglobin was 8.2. Patient remained hypotensive and received a second unit of packed red blood cells. Other laboratory values revealed no leukocytosis. INR was 1.3. Glucose was significantly elevated at 402. Patient appears to have an acute kidney injury with a creatinine of 2.4. Troponin was slightly elevated at 23.5. Transaminases were elevated as well. As part of the patient's trauma workup, she had a portable chest x-ray which was normal. CT scan of the brain and cervical spine were both negative for acute traumatic injuries. With the increase in blood pressure, the patient's mentation improved. The patient's family arrived at the bedside and reviewed the case with them. Care/management discussed with: slot manager, Dr. Bianchi, and the patient's family Triage Nursing notes: reviewed and agree with them. Vital Signs: reviewed and remarkable for hypotension Additional History obtained from: EMS Chronic Medical/Social Conditions affecting care: A-fib on Eliquis; diabetes- type II; significant hearing loss Differential Diagnosis: Arterial bleeding, varicose vein bleeding, head injury, C-spine injury, dehydration, blood loss anemia Diagnostics, independently interpreted by me: ECG: Atrial fibrillation at a rate of [address] segment elevation or signs of ischemia. QTc was 440 ms. Cardiac Monitoring: A-fib at a rate of 68 Imaging studies: Portable chest x-ray: No acute pulmonary infiltrates or consolidation as per my independent interpretation. CT scan of the head: As per Imbro CT scan of the cervical spine: As per Imbro HPI: 89 year old Female arrives for evaluation of left leg bleeding and fall to the ground. The patient has a known chronic wound to her left ankle which began to bleed around 830 this evening. She tried to get the bleeding to stop but was unsuccessful. The bleeding became heavier. She takes Eliquis for A-fib. She tried to contact a neighbor and walked to the place but became weak and fell to the ground. EMS was called. They applied pressure bandages, quick clot and a tourniquet to get the bleeding to slow down. Patient was significantly hypotensive upon arrival in the emergency department. PAST MEDICAL HISTORY: See Below, PAST SURGICAL HISTORY: See Below, SOCIAL HISTORY: See Below, HOME MEDICATIONS: See list ALLERGIES: See list VITALS: See Below PHYSICAL EXAMINATION: Primary Survey Airway: Intact Breathing: Normal, breath sounds equal bilaterally Circulation: Skin cool, no distal pulses appreciated due to the patient's significant hypotension Disability Pupils: Equal and reactive to light, 6mm, brisk GCS: 15, E = 6 V=5 M= 4 Motor Function: Moves all extremities. Sensory: No deficits Secondary Survey GEN: Well developed and well-nourished HEAD: Normal cephalic atraumatic EYES: Pupils round reactive to light, conjunctiva clear, extraocular movements intact, no raccoons eyes ENT: No fluid in external acoustic canals, no hemotympanum, no kidd's sign, nares patent, oropharynx clear NECK: No JVD, midline trachea, no cervical spine tenderness, cervical spine was cleared at [address] scan and clinically. HEART: irregularly irregular rhythm with a controlled rate LUNGS: Clear to auscultation bilaterally. CHEST: Chest wall non-tender, no bruising/deformity ABD: No Lindo-Chakraborty's or Milano's sign, soft, non-tender, no rebound or guarding, PELVIS: Stable to rock EXT: Left lower extremity: There is a wound just proximal to the lateral malleolus the size is just slightly smaller than a shirt button. This has significant bleeding that appears to be venous in color but under pressure. NEURO: CNII-XII grossly intact, able to follow commands. Normal muscle strength in all 4 extremities. The patient is extremely hard of hearing. Skin: Extremely pale, dry with poor turgor PROCEDURES: Bleeding control: Left lower extremity wound which was spurting blood The patient is allergic to lidocaine. Direct pressure was applied in a proximal position once the tourniquet was removed to control the rapid bleeding so that I could not visualize the wound. The wound was cleansed with Betadine repeatedly. I used 4-0 Ethilon suture material on a P3 to perform a iorsgv-ne-zljri stitch to gain hemostasis. This was successful. There was only a small ooze that remained. A pressure bandage was applied. Emergency Department treatment: residential monitor, supplemental oxygen, IV normal saline bolus, 2 units of packed red blood cells, bleeding control with suture procedure Emergency Department course: The patient was emergently seen in room A1 as a t rauma alert. A quick history and physical was performed. A second IV lock was initiated. Labs were drawn as above. The patient was significantly hypotensive and bolused with an additional 500 cc of saline. She was placed in reverse Trendelenburg. I-STAT labs were ordered. I ordered 1 unit of uncrossed matched blood. A complete trauma assessment was performed. Forward chest x-ray was obtained. Patient was bolused with 1 unit of packed red blood cells under pressure. I was able to unwrap the bleeding wound, evaluate and performed a rluezj-hk-[id number] stitch to control bleeding. A pressure bandage was reapplied to the wound. Patient remained hypotensive and a second unit of uncrossed match blood was ordered. Patient went for CT scan of the brain and cervical spine. Patient's family arrived at the bedside. We kept the patient and the family abreast of the situation. A second i-STAT was obtained and the hemoglobin has come up to 8.2. I discussed the case with the [facility] Hospitalist and they will evaluate for further inpatient care. CRITICAL CARE: I have personally spent greater than 105 minutes of critical care time in the direct management of this patient. This includes bedside care, interpretation of diagnostic studies, and testing, discussion with consultants, patient, and family members, and other required patient management activities. This 105 minutes is in excess of all separately billable procedures. Past Med/Surg History Problem List (Updated 05/05/25 @ 15:45 by Cony Polanco DO) Acute hyperglycemia (Acute) Elevated troponin (Acute) OMER (acute kidney injury) (Acute) Fall (Acute) Acute hemorrhage (Acute) Acute blood loss anemia (Acute) Bleeding from wound Acute blood loss anemia Heart failure with mildly reduced ejection fraction (HFmrEF) Abdominal pain Hypothyroidism HFrEF (heart failure with reduced ejection fraction) Diabetes mellitus, type 2 Hypomagnesemia Atrial fibrillation (Acute) Cardiomyopathy Fatigue Mitral regurgitation Aortic stenosis HBP (high blood pressure) Encounter for pre-operative examination High cholesterol Urinary incontinence Arthritis Fibromyalgia Hyperthyroidism Diastolic congestive heart failure Atrial fibrillation Anticoagulant long-term use (Acute) Medical History Overactive bladder Basal cell carcinoma of nose Congestive heart failure Admitted October 2019 for diastolic CHF at [facility]- per cardio note 02/08/20- CHF now corrected with meds and patient feels well Atrial fibrillation reason for scheduled cardioversion, reason for eliquis Benign thyroid cyst Bowel obstruction Surgical History History of bilateral tubal ligation History of dilatation and curettage History of varicose vein ligation and stripping bilt History of colonoscopy History of esophagogastroduodenoscopy (EGD) History of Mohs micrographic surgery for skin cancer History of tooth extraction all teeth History of lumpectomy of right breast benign S/P thyroid biopsy History of thyroid surgery benign lump removal History of bilateral cataract extraction History of cardiac cath 2000 @ [facility] d/t SOB--no stents placed 2005 @ [facility]--no stents placed H/O exploratory laparotomy Family History Mother Diabetes Heart disease Cancer Sister Diabetes Heart disease Brother Cancer Hypertension Other No family history of adverse response to anesthesia Social History Smoking Status: Never smoker Second Hand Exposure: No; Do You Dip or Chew Tobacco: No; Hx Alcohol Use: No Hx Substance Use: No Preferred Language: Latvian Communication Ability: Effective Casino Assistant Manager Required: No Beliefs That Will Affect Care: None marital status: Current Living Situation: Alone current occupational status: retired Other Information That Helps Us Care for You: No Feels Safe at Home: Yes Safety Concerns: Feels Safe At This Time Assistive Devices: Stair Lift Allergies Allergies Allergy/AdvReac Type Severity Reaction Status Date / Time dexamethasone Allergy Severe EDEMA Verified 05/04/25 23:52 AIRWAY, RASH lidocaine Allergy Severe EDEMA Verified 05/04/25 23:52 AIRWAY, RASH propoxycaine AdvReac Intermediate HALLUCINATI Verified 05/04/25 23:52 ONS Home Meds Home Medications Medication Instructions Recorded Confirmed atorvastatin 40 mg tablet 40 mg PO DAILY 12/25/19 05/04/25 glucosamine HCl 1,500 mg tablet 3,000 mg PO DAILY 12/25/19 05/04/25 levothyroxine 88 mcg capsule 88 mcg PO DAILY 12/25/19 05/04/25 apixaban 5 mg tablet (Eliquis) 5 mg PO BID 02/08/20 05/04/25 cholecalciferol (vitamin D3) 25 1,000 units PO DAILY 02/08/20 05/04/25 mcg (1,000 unit) capsule icosapent ethyl 1 gram capsule 1 gm PO DAILY 02/08/20 05/04/25 (Vascepa) metformin 500 mg tablet 500 mg PO BID 02/08/20 05/04/25 multivitamin 1 tab PO DAILY 02/08/20 05/04/25 vitamin E 268 mg (400 unit) capsule 400 unit PO DAILY 02/15/20 05/04/25 ascorbic acid (vitamin C) 500 mg 1,000 mg PO DAILY 01/08/22 05/04/25 capsule Benefiber Tab 1 tab PO DIRECTED PRN 11/19/23 05/04/25 Constipation acetaminophen 500 mg tablet 1,000 mg PO Q6H PRN Pain 11/19/23 05/04/25 (Tylenol Extra Strength) cholecalciferol (vitamin D3) 50 50 mcg PO DAILY 12/14/23 05/04/25 mcg (2,000 unit) capsule meclizine 25 mg tablet 25 mg PO BID PRN Dizziness 12/14/23 05/04/25 omega-3s 720 mg-dha 300 mg-epa 360 1 cap PO DAILY 12/18/24 05/04/25 mg-fish oil 1,200 mg capsule sacubitril 24 mg-valsartan 26 mg 1 tab PO BID 12/18/24 05/04/25 tablet (Entresto) Previous Rx's Medication Instructions Recorded furosemide 20 mg tablet (Lasix) 20 mg PO DAILY PRN weight gain or 11/26/23 leg swelling #30 tabs spironolactone 25 mg tablet 12.5 mg (1/2 x 25 mg) PO QAM #180 12/23/23 tabs carvedilol 6.25 mg tablet 6.25 mg PO BIDM #180 tabs 07/17/24 Results & Data (ED) Vital Signs Vital Signs - 24 hr 05/04/25 23:36 05/04/25 23:36 05/04/25 23:36 Temperature 36.6 C 36.7 C Temperature Source Oral Pulse Rate 96 H 73 Pulse Rate [Apical] 71 Pulse Rate from SpO2 Sensor Pulse Rhythm Irregular Pulse Rhythm [Apical] Irregular Pulse Strength Normal Pulse Strength [Bilateral Carotid] Weak Respiratory Rate 24 25 H 18 Respiratory Effort / Characteristics Non-Labored Spontaneous Non-Labored Spontaneous Respiratory Depth Normal Normal Respiratory Pattern Regular Blood Pressure 76/46 L 76/39 L Blood Pressure [Right Arm] 84/39 L Blood Pressure Mean 56 Blood Pressure Mean [Right Arm] 54 Blood Pressure Position [Right Arm] Lying Pulse Oximetry 100 100 100 Oxygen Delivery Method Non-rebreather Non-rebreather Oxymask Oxygen Flow Rate 15 15 6 Sepsis Recent Fever Within 48 Hours No Sepsis New/Unexplained Change in Mental Status No Sepsis Action Taken by Nursing Physician Notified 05/04/25 23:39 05/04/25 23:40 05/04/25 23:40 Temperature Temperature Source Pulse Rate 99 H 76 88 Pulse Rate [Apical] Pulse Rate from SpO2 Sensor Pulse Rhythm Irregular Pulse Rhythm [Apical] Pulse Strength Pulse Strength [Bilateral Carotid] Respiratory Rate 22 22 Respiratory Effort / Characteristics Respiratory Depth Respiratory Pattern Blood Pressure 76/46 L Blood Pressure [Right Arm] Blood Pressure Mean 50 Blood Pressure Mean [Right Arm] Blood Pressure Position [Right Arm] Pulse Oximetry 100 98 Oxygen Delivery Method Oxymask Non-rebreather Oxygen Flow Rate 8 15 Sepsis Recent Fever Within 48 Hours Sepsis New/Unexplained Change in Mental Status Sepsis Action Taken by Nursing 05/04/25 23:45 05/04/25 23:48 05/04/25 23:50 Temperature Temperature Source Pulse Rate 83 92 H 77 Pulse Rate [Apical] Pulse Rate from SpO2 Sensor Pulse Rhythm Pulse Rhythm [Apical] Pulse Strength Pulse Strength [Bilateral Carotid] Respiratory Rate 22 22 23 Respiratory Effort / Characteristics Respiratory Depth Respiratory Pattern Blood Pressure 83/49 L 82/46 L 72/44 L Blood Pressure [Right Arm] Blood Pressure Mean 58 55 55 Blood Pressure Mean [Right Arm] Blood Pressure Position [Right Arm] Pulse Oximetry 97 98 93 Oxygen Delivery Method Non-rebreather Oxymask Oxymask Oxygen Flow Rate 15 8 8 Sepsis Recent Fever Within 48 Hours Sepsis New/Unexplained Change in Mental Status Sepsis Action Taken by Nursing 05/04/25 23:55 05/05/25 00:01 05/05/25 00:06 Temperature Temperature Source Pulse Rate 72 86 Pulse Rate [Apical] Pulse Rate from SpO2 Sensor Pulse Rhythm Pulse Rhythm [Apical] Pulse Strength Pulse Strength [Bilateral Carotid] Respiratory Rate 18 19 Respiratory Effort / Characteristics Respiratory Depth Respiratory Pattern Blood Pressure 79/46 L 68/36 L 63/43 L Blood Pressure [Right Arm] Blood Pressure Mean 52 43 53 Blood Pressure Mean [Right Arm] Blood Pressure Position [Right Arm] Pulse Oximetry 99 100 Oxygen Delivery Method Oxymask Oxymask Oxygen Flow Rate 6 6 Sepsis Recent Fever Within 48 Hours Sepsis New/Unexplained Change in Mental Status Sepsis Action Taken by Nursing 05/05/25 00:07 05/05/25 00:10 05/05/25 00:16 Temperature Temperature Source Pulse Rate 84 80 Pulse Rate [Apical] Pulse Rate from SpO2 Sensor Pulse Rhythm Pulse Rhythm [Apical] Pulse Strength Pulse Strength [Bilateral Carotid] Respiratory Rate 20 19 Respiratory Effort / Characteristics Respiratory Depth Respiratory Pattern Blood Pressure 82/49 L 79/38 L Blood Pressure [Right Arm] Blood Pressure Mean 65 61 Blood Pressure Mean [Right Arm] Blood Pressure Position [Right Arm] Pulse Oximetry 100 100 100 Oxygen Delivery Method Oxymask Oxymask Oxymask Oxygen Flow Rate 8 6 6 Sepsis Recent Fever Within 48 Hours Sepsis New/Unexplained Change in Mental Status Sepsis Action Taken by Nursing 05/05/25 00:31 05/05/25 00:35 05/05/25 00:45 Temperature Temperature Source Pulse Rate 70 75 Pulse Rate [Apical] 86 Pulse Rate from SpO2 Sensor Pulse Rhythm Pulse Rhythm [Apical] Pulse Strength Pulse Strength [Bilateral Carotid] Respiratory Rate 20 20 22 Respiratory Effort / Characteristics Non-Labored Spontaneous Respiratory Depth Normal Respiratory Pattern Regular Blood Pressure 76/41 L 76/39 L Blood Pressure [Right Arm] 79/66 L Blood Pressure Mean 53 48 Blood Pressure Mean [Right Arm] 70 Blood Pressure Position [Right Arm] Lying Pulse Oximetry 100 100 100 Oxygen Delivery Method Oxymask Oxymask Oxymask Oxygen Flow Rate 6 6 6 Sepsis Recent Fever Within 48 Hours Sepsis New/Unexplained Change in Mental Status Sepsis Action Taken by Nursing 05/05/25 00:50 05/05/25 00:56 05/05/25 01:00 Temperature Temperature Source Pulse Rate 72 68 Pulse Rate [Apical] 68 Pulse Rate from SpO2 Sensor Pulse Rhythm Pulse Rhythm [Apical] Regular Pulse Strength Pulse Strength [Bilateral Carotid] Respiratory Rate 20 20 20 Respiratory Effort / Characteristics Non-Labored Spontaneous Respiratory Depth Normal Respiratory Pattern Regular Blood Pressure 79/42 L 84/39 L Blood Pressure [Right Arm] 93/54 L Blood Pressure Mean 60 45 Blood Pressure Mean [Right Arm] 67 Blood Pressure Position [Right Arm] Lying Pulse Oximetry 98 100 100 Oxygen Delivery Method Oxymask Oxymask Oxymask Oxygen Flow Rate 6 6 6 Sepsis Recent Fever Within 48 Hours Sepsis New/Unexplained Change in Mental Status Sepsis Action Taken by Nursing 05/05/25 01:00 05/05/25 01:05 05/05/25 01:05 Temperature Temperature Source Pulse Rate 73 76 Pulse Rate [Apical] Pulse Rate from SpO2 Sensor Pulse Rhythm Pulse Rhythm [Apical] Pulse Strength Pulse Strength [Bilateral Carotid] Respiratory Rate 20 20 Respiratory Effort / Characteristics Respiratory Depth Respiratory Pattern Blood Pressure 82/54 L 90/58 L Blood Pressure [Right Arm] Blood Pressure Mean 68 63 Blood Pressure Mean [Right Arm] Blood Pressure Position [Right Arm] Pulse Oximetry 100 100 100 Oxygen Delivery Method Oxymask Oxymask Oxymask Oxygen Flow Rate 6 6 6 Sepsis Recent Fever Within 48 Hours Sepsis New/Unexplained Change in Mental Status Sepsis Action Taken by Nursing 05/05/25 01:10 05/05/25 01:16 05/05/25 01:20 Temperature Temperature Source Pulse Rate 67 70 74 Pulse Rate [Apical] Pulse Rate from SpO2 Sensor Pulse Rhythm Pulse Rhythm [Apical] Pulse Strength Pulse Strength [Bilateral Carotid] Respiratory Rate 24 20 19 Respiratory Effort / Characteristics Respiratory Depth Respiratory Pattern Blood Pressure 93/54 L 79/66 L 92/52 L Blood Pressure [Right Arm] Blood Pressure Mean 63 69 67 Blood Pressure Mean [Right Arm] Blood Pressure Position [Right Arm] Pulse Oximetry 98 100 100 Oxygen Delivery Method Oxymask Oxymask Oxymask Oxygen Flow Rate 6 6 6 Sepsis Recent Fever Within 48 Hours Sepsis New/Unexplained Change in Mental Status Sepsis Action Taken by Nursing 05/05/25 01:33 05/05/25 01:52 05/05/25 02:00 Temperature Temperature Source Pulse Rate 80 68 77 Pulse Rate [Apical] Pulse Rate from SpO2 Sensor 74 67 78 Pulse Rhythm Pulse Rhythm [Apical] Pulse Strength Pulse Strength [Bilateral Carotid] Respiratory Rate 22 24 22 Respiratory Effort / Characteristics Respiratory Depth Respiratory Pattern Blood Pressure 83/51 L 89/50 L 89/49 L Blood Pressure [Right Arm] Blood Pressure Mean 61 53 62 Blood Pressure Mean [Right Arm] Blood Pressure Position [Right Arm] Pulse Oximetry 100 100 100 Oxygen Delivery Method Oxymask Oxygen Flow Rate 6 Sepsis Recent Fever Within 48 Hours Sepsis New/Unexplained Change in Mental Status Sepsis Action Taken by Nursing 05/05/25 02:12 Temperature Temperature Source Pulse Rate 92 H Pulse Rate [Apical] Pulse Rate from SpO2 Sensor 89 Pulse Rhythm Pulse Rhythm [Apical] Pulse Strength Pulse Strength [Bilateral Carotid] Respiratory Rate 22 Respiratory Effort / Characteristics Respiratory Depth Respiratory Pattern Blood Pressure 92/48 L Blood Pressure [Right Arm] Blood Pressure Mean 62 Blood Pressure Mean [Right Arm] Blood Pressure Position [Right Arm] Pulse Oximetry 100 Oxygen Delivery Method Oxygen Flow Rate Sepsis Recent Fever Within 48 Hours Sepsis New/Unexplained Change in Mental Status Sepsis Action Taken by Nursing Laboratory Data 05/05/25 09:12 05/05/25 04:35 Lab Results 05/04/25 05/04/25 05/05/25 Range/Units 23:40 23:46 00:48 WBC 4.89 (4.8-10.8) K/ul RBC 2.33 L (4.20-5.40) M/uL Hgb 7.1 L (12.0-16.0) g/dl POC Hgb 6.8 L* 8.2 L (12.0-16.0) g/dl Hct 23.2 L (37.0-47.0) % POC Hct 20 L* 24 L (37-47) % MCV 99.6 (80.0-100.0) fL MCH 30.5 (25.0-34.0) pg MCHC 30.6 L (32.0-36.0) g/dL RDW Std Deviation 50.2 H (36.4-46.3) fL RDW Coeff of Jese 13.9 (11.5-14.5) % Plt Count 166 (130-400) K/uL MPV 11.9 (9.4-12.4) fL Immature Gran % (Auto) 0.8 % Neut % (Auto) 52.0 % Lymph % (Auto) 36.0 % Bureau % (Auto) 6.7 % Eos % (Auto) 3.9 % Baso % (Auto) 0.6 % Neut # (Auto) 2.54 (1.40-6.50) K/uL Lymph # (Auto) 1.76 (1.20-3.40) K/uL Bureau # (Auto) 0.33 (0.11-0.59) K/uL Eos # (Auto) 0.19 (0.00-0.50) K/uL Baso # (Auto) 0.03 (0.00-0.20) K/uL Immature Gran # (Auto) 0.04 (0.01-0.20) K/uL RBC Morphology Unremarkable PT 13.2 H (9.0-12.0) Seconds INR 1.3 H (0.9-1.1) APTT 24 (21-31) Seconds PTT Ratio 0.9 POC Sodium 138 139 (135-144) mmol/L Sodium 137 (136-145) mmol/L POC Potassium 4.6 5.8 H (3.3-5.0) mmol/L Potassium 4.6 (3.5-5.1) mmol/L POC Chloride 107 107 (101-112) mmol/L Chloride 108 H (98-107) mmol/L Carbon Dioxide 15 L (21-32) mmol/L POC Total CO2 15 L 20 L (24-31) mmol/L Anion Gap 14 H (3-11) POC Anion Gap 21.0 19.0 (16-25) mmol/L POC BUN 30 H 37 H (7-18) mg/dl BUN 34 H (6-23) mg/dl Creatinine 2.47 H (0.6-1.2) mg/dl POC Creatinine 2.6 H 2.5 H (0.6-1.3) mg/dl Est Cr Clr Drug Dosing 15.6 ml/min eGFR 18.20 BUN/Creatinine Ratio 13.8 (10-20) Glucose 402 H* (70-99(Fasting)) mg/dl POC Glucose (other) 362 H* 310 H (70-99) mg/dl Calcium 7.8 L (8.6-10.3) mg/dl POC Ioniz Calcium Jia 1.08 L 1.09 L (1.12-1.32) mmol/l Total Bilirubin 0.3 (0.2-1.0) mg/dl AST 118 H (13-39) U/L ALT 69 H (7-52) U/L Alkaline Phosphatase 45 (34-104) U/L Troponin I High Sens 23.5 H (0-14) pg/ml Total Protein 4.0 L (6.0-8.3) gm/dl Albumin 2.4 L (3.4-5.0) gm/dl Globulin 1.6 L (2.5-4.0) gm/dl Albumin/Globulin Ratio 1.5 (0.9-2) Lipase 45 (11-82) U/L Blood Type O Positive Blood Type Recheck Antibody Screen NEGATIVE Crossmatch See Detail 05/05/25 05/05/25 Range/Units 01:05 02:07 WBC (4.8-10.8) K/ul RBC (4.20-5.40) M/uL Hgb (12.0-16.0) g/dl POC Hgb (12.0-16.0) g/dl Hct (37.0-47.0) % POC Hct (37-47) % MCV (80.0-100.0) fL MCH (25.0-34.0) pg MCHC (32.0-36.0) g/dL RDW Std Deviation (36.4-46.3) fL RDW Coeff of Jese (11.5-14.5) % Plt Count (130-400) K/uL MPV (9.4-12.4) fL Immature Gran % (Auto) % Neut % (Auto) % Lymph % (Auto) % Bureau % (Auto) % Eos % (Auto) % Baso % (Auto) % Neut # (Auto) (1.40-6.50) K/uL Lymph # (Auto) (1.20-3.40) K/uL Bureau # (Auto) (0.11-0.59) K/uL Eos # (Auto) (0.00-0.50) K/uL Baso # (Auto) (0.00-0.20) K/uL Immature Gran # (Auto) (0.01-0.20) K/uL RBC Morphology PT (9.0-12.0) Seconds INR (0.9-1.1) APTT (21-31) Seconds PTT Ratio POC Sodium (135-144) mmol/L Sodium (136-145) mmol/L POC Potassium (3.3-5.0) mmol/L Potassium (3.5-5.1) mmol/L POC Chloride (101-112) mmol/L Chloride (98-107) mmol/L Carbon Dioxide (21-32) mmol/L POC Total CO2 (24-31) mmol/L Anion Gap (3-11) POC Anion Gap (16-25) mmol/L POC BUN (7-18) mg/dl BUN (6-23) mg/dl Creatinine (0.6-1.2) mg/dl POC Creatinine (0.6-1.3) mg/dl Est Cr Clr Drug Dosing ml/min eGFR BUN/Creatinine Ratio (10-20) Glucose (70-99(Fasting)) mg/dl POC Glucose (other) (70-99) mg/dl Calcium (8.6-10.3) mg/dl POC Ioniz Calcium Jia (1.12-1.32) mmol/l Total Bilirubin (0.2-1.0) mg/dl AST (13-39) U/L ALT (7-52) U/L Alkaline Phosphatase (34-104) U/L Troponin I High Sens 51.0 H* D (0-14) pg/ml Total Protein (6.0-8.3) gm/dl Albumin (3.4-5.0) gm/dl Globulin (2.5-4.0) gm/dl Albumin/Globulin Ratio (0.9-2) Lipase (11-82) U/L Blood Type Blood Type Recheck O Positive Antibody Screen Crossmatch See Detail Administered Medications Atorvastatin Calcium (Atorvastatin 40 Mg Tab) 40 mg PO DAILY MAI Stop: 06/04/25 08:59 Last Admin: 05/05/25 09:09 Dose: 40 mg Documented By: JOJO Insulin Aspart (Insulin Aspart Per Unit Charge) 0 units SC ACHS MAI Stop: 06/04/25 07:29 Last Admin: 05/05/25 12:25 Dose: 2 units Documented By: JOJO Co-signed By: VICTOR HUGO Admin: 05/05/25 08:45 Dose: 2 units Documented By: JOJO Co-signed By: MORALES Insulin Glargine (Lantus Per Unit Charge) 10 units SQ QAM MAI Stop: 06/04/25 08:59 Last Admin: 05/05/25 08:45 Dose: 10 units Documented By: JOJO Co-signed By: MORALES Levothyroxine Sodium (Levothyroxine Sodium 88 Mcg Tablet) 88 mcg PO DAILYBB [facility] Stop: 06/04/25 06:29 Last Admin: 05/05/25 05:33 Dose: Not Given Documented By: kelsea Discontinued Medications Calcium Gluconate () 1,000 mg in 60 mls @ 240 mls/hr IV Q15M MAI Stop: 05/05/25 04:44 Last Infusion: 05/05/25 04:58 Dose: Infused Documented By: kelsea Admin: 05/05/25 04:29 Dose: 240 mls/hr Documented By: kelsea Infusion: 05/05/25 04:29 Dose: Infused Documented By: kelsea Admin: 05/05/25 04:16 Dose: 240 mls/hr Documented By: kelsea Lactated Ringer's (Lr) 1,000 mls @ 999 mls/hr IV .Q1H1M ONE Stop: 05/05/25 07:55 Last Infusion: 05/05/25 08:36 Dose: Infused Documented By: Admin: 05/05/25 07:35 Dose: 999 mls/hr Documented By: JOJO Insulin Aspart (Insulin Aspart Per Unit Charge) 4 units SC NOW STA Stop: 05/05/25 03:42 Last Admin: 05/05/25 06:13 Dose: Not Given Documented By: dmg Co-signed By: DIMAS Lidocaine/Epinephrine (Lidocaine 1%/Epinephrine 1:100,000 50 Ml Vial) Confirm Administered Dose 1 ml .ROUTE .STK-MED ONE Stop: 05/04/25 23:51 Last Admin: 05/05/25 00:13 Dose: Not Given Documented By: KMF Metoprolol Tartrate (Metoprolol Tartrate 1 Mg/Ml Vial) 5 mg IV NOW STA Stop: 05/05/25 06:36 Last Admin: 05/05/25 09:16 Dose: Not Given Documented By: WMK Imaging Data Radiologist's Impression: Chest X-Ray 05/05/25 00:07 EXAM: XR chest 1V portable CLINICAL HISTORY: Trauma. TECHNIQUE: An X-ray image of the chest is obtained in AP projection. COMPARISON: No prior studies are available for comparison. FINDINGS: Pulmonary Parenchyma: Expiratory image with evidence of emphysematous changes of both lung pierce. No evidence of consolidation, collapse, or focal opacities. No pulmonary nodules are identified. Obliterated left costophrenic angle suggesting underlying mild pleural effusion. No evidence of right pleural effusion or pleural thickening. Heart and Mediastinum: Heart size enlarged in size with the bilateral congested nolvia. Calcified aortic arch wall No mediastinal widening or masses. No hilar or mediastinal lymphadenopathy. Bony Thorax: Spondylosis of the thoracic spine. Bony thorax appears intact without fractures or deformities. Soft Tissues: Soft tissues overlying the chest wall are unremarkable. IMPRESSION: 1. Expiratory image with evidence of emphysematous changes of both lung pierce. 2. Obliterated left costophrenic angle suggesting underlying mild pleural effusion. 3. Cardiomegaly with bilateral congested nolvia and calcified aortic arch wall. Electronically signed by Loc Perkins 05-05-2025 01:[address] 05/05/25 00:08 EXAM: CT cervical spine wo con CLINICAL HISTORY: Trauma TECHNIQUE: Computed tomography of the cervical spine was performed without intravenous contrast. Contiguous axial images were obtained from the skull base to T2, with sagittal and coronal reformatted images reconstructed from the axial data. The CT scan was performed according to ALARA (as low as reasonably achievable). COMPARISON: None. FINDINGS: There is loss of cervical lordosis, suggesting the possibility of muscle spasm or positional change. There are degenerative changes involving the cervical spine in the form of multilevel marginal osteophytes, disc space reduction, and facetal arthrosis. The cervical vertebral bodies are normal in height and alignment, with no evidence of fracture or subluxation. The lateral masses of C1 are symmetrical, and the dens is intact. The prevertebral soft tissues are not widened. The remaining suprahyoid and infrahyoid soft tissues in the neck are unremarkable. Posterior uncovertebral arthrosis is noted at the C4-C5 to C6-C7 levels, which is indenting the ventral thecal sac and causing bilateral neuroforaminal narrowing. The thyroid gland appears unremarkable. IMPRESSION: 1. No acute fracture or subluxation in the cervical spine. 2. Cervical spondylosis. Electronically signed by Rogers Cordon 05-05-2025 02:[address] 05/05/25 00:08 EXAM: CT head/brain wo con CLINICAL HISTORY: Trauma TECHNIQUE: Multiple axial images were obtained from the skull base to the vertex without contrast. CT scan was performed according to ALARA (as low as reasonably achievable). COMPARISON: None. FINDINGS: There is cerebral atrophy. There is no evidence of space-occupying lesion, hemorrhage, edema, mass effect, midline shift, extra-axial collection, or hydrocephalus. The basal cisterns are symmetric and normal in size and configuration. There are scattered periventricular hypodensities, as can be seen with chronic microvascular ischemic changes. The dsouza-white matter differentiation is preserved. Right maxillary sinusitis is present. The rest of the paranasal sinuses and mastoid air cells are well aerated. Orbital contents are within normal limits. Bony structures are intact. IMPRESSION: 1. No evidence of acute intracranial abnormality is demonstrated. 2. Chronic microvascular ischemic changes. 3. Cerebral atrophy. Electronically signed by Rogers Cordon 05-05-2025 01:20 AM Discharge Plan Visit Data Chief Complaint: Trauma Stated Complaint: Fall, Bleeding ED Provider: Cony Polanco Discharge Problem: Acute blood loss anemia, Acute hemorrhage, Fall, OMER (acute kidney injury), Elevated troponin, Acute hyperglycemia Patient Disposition: Admitted As Inpatient Condition: Critical Discharge Instructions Interventions: ED Discharge Assessment Last Done: 05/05/25 03:00
[2025-05-05] MEDS: LACTATED RINGER'S 1,000 ML IV ONE (07:35)
[2025-05-05] MEDS: INSULIN ASPART PER UNIT CHARGE SC SCH (08:45)
[2025-05-05] MEDS: LANTUS PER UNIT CHARGE SQ SCH (08:45)
[2025-05-05] MEDS: ATORVASTATIN 40 MG TAB PO SCH (09:09)
[2025-05-05] MEDS: METOPROLOL TARTRATE 1 MG/ML VIAL IV STA (09:16)
[2025-05-05 09:42] LABS: Hematocrit (blood only) 30.0 % (37.0-47.0); Hemoglobin 10.5 g/dl (12.0-16.0); Mean Corpuscular Hemoglobin 30.7 pg (25.0-34.0); Mean Corpuscular Volume 87.7 fL (80.0-100.0); Platelet Count 164 K/uL (130-400); RDW Standard Deviation 50.7 fL (36.4-46.3); Red Blood Count 3.42 M/uL (4.20-5.40); White Blood Count 17.85 K/ul (4.8-10.8)
[2025-05-05 10:32] LABS: Hemoglobin A1C 6.3 % (4.5-5.6)
[2025-05-05 16:05] LABS: Hematocrit (blood only) 30.2 % (37.0-47.0); Hemoglobin 10.1 g/dl (12.0-16.0); Mean Corpuscular Hemoglobin 29.5 pg (25.0-34.0); Mean Corpuscular Volume 88.3 fL (80.0-100.0); Platelet Count 172 K/uL (130-400); RDW Standard Deviation 52.4 fL (36.4-46.3); Red Blood Count 3.42 M/uL (4.20-5.40); White Blood Count 19.07 K/ul (4.8-10.8)
[2025-05-05] MEDS: ACETAMINOPHEN 500 MG TAB PO PRN (16:24)
[2025-05-05] MEDS: SODIUM CHLORIDE 0.9% 500 ML IV SCH (21:15)
[2025-05-05] MEDS: ALBUMIN 25% 25 GM/100 ML VIAL IV ONE (21:16)
[2025-05-05 22:12] LABS: Hematocrit (blood only) 25.2 % (37.0-47.0); Hemoglobin 8.8 g/dl (12.0-16.0); Mean Corpuscular Hemoglobin 31.1 pg (25.0-34.0); Mean Corpuscular Volume 89.0 fL (80.0-100.0); Platelet Count 142 K/uL (130-400); RDW Standard Deviation 52.7 fL (36.4-46.3); Red Blood Count 2.83 M/uL (4.20-5.40); White Blood Count 16.28 K/ul (4.8-10.8)
[2025-05-06 02:50] LABS: Appearance Urine Clear (Clear); Glucose Urine UA Negative (Negative)
[2025-05-06 03:25] LABS: Epithelial Cell Urine 0-2 /hpf (0-2)
[2025-05-06 06:31] LABS: Alanine Aminotransferase 47.0 U/L (7-52); Albumin Level 3.0 gm/dl (3.4-5.0); Alkaline Phosphatase 37.0 U/L (34-104); Anion Gap 6.0 (3-11); Bilirubin,Total 0.7 mg/dl (0.2-1.0); Blood Urea Nitrogen 48.0 mg/dl (6-23); Calcium 8.5 mg/dl (8.6-10.3); Carbon Dioxide 22.0 mmol/L (21-32); Chloride 111.0 mmol/L (98-107); Creatinine Clr Calc Pharmacy 21.7 ml/min; Glucose 147.0 mg/dl (70-99(Fasting)); Potassium 4.2 mmol/L (3.5-5.1); Sodium 139.0 mmol/L (136-145); Total Protein 4.8 gm/dl (6.0-8.3)
[2025-05-06 09:57] LABS: Hematocrit (blood only) 25.0 % (37.0-47.0); Hemoglobin 8.1 g/dl (12.0-16.0); Mean Corpuscular Hemoglobin 29.3 pg (25.0-34.0); Mean Corpuscular Volume 90.6 fL (80.0-100.0); Platelet Count 154 K/uL (130-400); RDW Standard Deviation 54.1 fL (36.4-46.3); Red Blood Count 2.76 M/uL (4.20-5.40); White Blood Count 9.07 K/ul (4.8-10.8)
[2025-05-06 10:15] LABS: Anion Gap 9.0 (3-11); Blood Urea Nitrogen 47.0 mg/dl (6-23); Calcium 8.6 mg/dl (8.6-10.3); Carbon Dioxide 21.0 mmol/L (21-32); Chloride 108.0 mmol/L (98-107); Creatine Kinase 47.0 U/L (26-192); Creatinine Clr Calc Pharmacy 22.0 ml/min; Glucose 226.0 mg/dl (70-99(Fasting)); Magnesium 1.7 mg/dl (1.7-2.4); Potassium 4.3 mmol/L (3.5-5.1); Sodium 138.0 mmol/L (136-145)
[2025-05-06 10:24] LABS: Immature Granulocytes # (auto) 0.02 K/uL (0.01-0.20); Immature Granulocytes % (auto) 0.2 %
--- NOTE | 2025-05-06 16:58 | XRay Report ---
Chest radiograph, one view History: Shortness of breath Comparison: 05/05/2025 Findings: Single AP view of the chest performed. No focal consolidation or pleural effusion. No pneumothorax. The cardiomediastinal silhouette is enlarged. Normal pulmonary vascularity. No evidence for lymphadenopathy. No visualized bony or soft tissue abnormality. Impression: The cardiac silhouette appears enlarged. No evidence for overt pulmonary edema Electronically signed by Andres Medina 05-06-2025 4:57 PM
[2025-05-06] MEDS ORDERED: VANCOMYCIN CONSULT ACTIVE PRN ×2 (18:11→18:12)
--- NOTE | 2025-05-06 18:18 | Hospitalist Progress Note ---
Date of Service May 06, 2025 Assessment & Plan (1) Acute on chronic systolic and diastolic heart failure, NYHA class 4: Plan: Patient complains of acute onset of cough, productive of white phlegm, SOB, and wheezing this afternoon (05/06/2025, 4:00pm). Patient demonstrates bibasilar crackles with audible expiratory wheeze on 05/06/2025, 6:15pm exam. Patient received 2 units of packed RBC on 05/05/2025 to address acute blood loss anemia with admission Hb 6.8 g/dL, MCV 99.6, MCHC 30.6 (05/04/2025, 11:46pm), due to presumed acute bleed from left lateral bella wound with 1 suture. Subsequently, lab testing showed: Troponin-I #1 23.5 pg/mL (05/04/2025, 11:40pm). Troponin-I #2 51.0 pg/mL (05/05/2025, 2:07am). Troponin-I #3 104.4 pg/mL (05/05/2025, 4:35am). Troponin-I #4 74.6 pg/mL (05/06/2025, 9:37am). Troponin-I #5 52.8 pg/mL (05/06/2025, 5:33pm). BNP 142 pg/mL (05/06/2025, 4:43pm). TSH 1.189 uIU/mL (05/05/2025, 9:12am). D-dimer 840 ug/L (05/06/2025, 4:43pm). Subsequently, EKG testing revealed: EKG #1 (05/05/2025, 12:18am): AFIB @ 73, QTC 440, no acute ST depressions/elevations (by my review). EKG #2 (05/06/2025, 12:41pm): AFIB @ 118, QTC 434, no acute ST depressions/elevations (by my review). EKG old (07/17/2024, 11:44am): AFIB @ 88, QTC 447, no acute ST depressions/elevations (by my review). Subsequently, imaging revealed: Portable CXR (05/06/2025, 4:30pm): 1. The cardiac silhouette appears enlarged. No evidence for overt pulmonary edema. CT chest without IV contrast (05/06/2025, 5:43pm): 1. No focal consolidation is identified in either lung. 2. Congestive changes of the cardiovascular system with enlarged heart and mild pulmonary vascular congestion. Hence, I surmise that patient's complaints of acute onset of cough, productive of white phlegm, SOB, and wheezing this afternoon (05/06/2025, 4:00pm) is probably due to acute exacerbation of chronic systolic CHF with reduced LVEF. cf., TTE (10/26/2023, 12:06pm): 1. LVEF 30-35%. Mild concentric LVH. Moderate global hypokinesis of LV. No thrombus. 2. LA moderately dilated. Interatrial septum intact with no evidence of ASD. 3. RA mildly dilated. 4. RV normal size and normal systolic function. 5. No . Mild AR. 6. No MS. Moderate MR. 7. No TS. Moderate TR. 8. No PS. Mild WV. 9. Aortic root normal size. Ascending aorta and aortic arch normal size. 10.Borderline dilated IVC. 11.No pericardial effusion. (as per CARDS Dr. Andres Sparrow). TTE (03/13/2024, 9:27am): 1. LVEF 50%. Mild concentric LVH. No regional wall motion abnormalities. No thrombus. 2. LA moderately dilated. 3. RA moderately dilated. 4. RV not well visualized. 5. Trace to moderate AR. 6. Moderate MR. 7. Mild-moderate TR. 8. Ascending aorta normal size. 9. IVC normal size. 10.No pericardial effusion. (as per CARDS Dr. Anthony Garcia). To this end, I have ordered lasix 40mg IV x 1 dose (05/06/2025, 7:06pm), to be followed by TTE (05/07/2025, 7:00am) to evaluate for any interval change(s) in LV systolic performance. At the same time, I cannot rule out acute PE to explain patient's complaints of acute onset of cough, productive of white phlegm, SOB, and wheezing this afternoon (05/06/2025, 4:00pm), as patient has not received her home-scheduled apixaban 5mg PO bid on 05/04/2025, 05/05/2025, and 05/06/2025, given patient's acute blood loss anemia with admission Hb 6.8 g/dL, MCV 99.6, MCHC 30.6 (05/04/2025, 11:46pm), due to presumed acute bleed from left lateral bella wound with 1 suture. Subsequently, I have examined patient's left lateral bella wound with 1 suture on 05/05/2025 pm and again on 05/06/2025 am/pm, and I have noted no overt/external bleeding at all, and I cannot appreciate any hematoma/ecchymosis at left lateral bella wound with 1 suture. Hence, I have opted to start patient on apixaban 2.5mg PO bid (05/06/2025, 9:00pm), which is less than patient's home-scheduled apixaban 5mg PO bid, in order to avoid precipitating another acute blood loss anemia should patient bleed out from her left lateral bella wound with 1 suture. Of note, I cannot order CTA chest STAT on 05/06/2025 pm to rule out acute PE given patient's elevated creatinine 1.80 mg/dL (05/06/2025, 9:37am). In addition, I cannot order V/Q scan STAT on 05/06/2025 pm to rule out acute PE as there is no nuclear medicine supervisor and no nuclear tracer to run V/Q scan STAT on 05/06/2025 pm. Hence, patient awaits V/Q scan in the 05/07/2025 am. Of note, I cannot rule out acute viral CAP and/or acute bacterial CAP to explain patient's complaints of acute onset of cough, productive of white phlegm, SOB, and wheezing this afternoon (05/06/2025, 4:00pm). To this end, I have ordered BIOFIRE respiratory pathogen PCR panel (05/06/2025, 5:43pm) to evaluate patient for acute viral infection; I have also ordered MRSA nares screen (05/06/2025, 5:43pm) to evaluate patient for staphylococcal infection. Given the concomitant elevation of both lactic acid and procalcitonin levels (see below), I have opted to start patient empirically on cefepime 2g IV x 1 dose (05/06/2025, 7:26pm), followed by cefepime 1g IV q12 (day #1/3 on 05/07/2025, 7:26am); patient has also been started empirically on vancomycin 1.5g IV x 1 dose (05/06/2025, 7:27pm). If MRSA nares screen (05/06/2025, 5:43pm) is negative, vancomycin will not be continued. Of note, confounding factors for patient's elevated lactic acid level include: (a) patient's home-scheduled metformin 500mg PO bid, which was last taken by the patient at her home on 05/04/2025, prior to patient coming to [facility] on 05/04/2025, 11:30pm, and which is currently on hold in [facility]; (b) acute blood loss anemia with admission Hb 6.8 g/dL, MCV 99.6, MCHC 30.6 (05/04/2025, 11:46pm), due to presumed acute bleed from left lateral bella wound with 1 suture. Of final note, confounding factors for patient's elevated procalcitonin level include: (a) acute renal failure with admission creatinine 2.47 mg/dL (05/04/2025, 11:40pm); (b) acute blood loss anemia with admission Hb 6.8 g/dL, MCV 99.6, MCHC 30.6 (05/04/2025, 11:46pm), due to presumed acute bleed from left lateral bella wound with 1 suture. Hence, pending performance and publication of TTE (05/07/2025, 7:00am) and V/Q scan (05/07/2025, 8:00am), I am inclined to discontinue cefepime 1g IV q12 (day #1/3 on 05/07/2025, 7:26am) on 05/07/2025 am. cf., Lactic acid #1 3.1 mmol/L (05/06/2025, 9:37am). cf., Lactic acid #2 2.9 mmol/L (05/06/2025, 12:54pm). cf., Lactic acid #3 2.1 mmol/L (05/06/2025, 6:10pm). cf., Procalcitonin #1 4.16 (05/06/2025, 9:37am). (2) Acute renal failure: Plan: cf., BUN 34, creatinine 2.47, GFR 18.2 (05/04/2025, 11:40pm). cf., BUN 30, creatinine 2.60 (05/04/2025, 11:46pm). cf., BUN 37, creatinine 2.50 (05/05/2025, 12:48am). cf., BUN 41, creatinine 2.02, GFR 23.2 (05/05/2025, 4:35am). cf., BUN 48, creatinine 1.82, GFR 26.3 (05/06/2025, 5:42am). cf., BUN 47, creatinine 1.80, GFR 26.6 (05/06/2025, 9:37am). cf., baseline creatinine range, 0.89 - 1.17 (11/19/2023 - 12/27/2023). Etiology of acute renal failure remains unclear, but is probably due to a combination of patient's home-scheduled spironolactone 12.5mg PO qam and sacubitril 24mg - valsartan 26mg PO bid. Hence, I have opted to hold off patient's home-scheduled spironolactone 12.5mg PO qam and sacubitril 24mg - valsartan 26mg PO bid while patient remains in [facility]. Of note, by holding off patient's home-scheduled spironolactone 12.5mg PO qam and sacubitril 24mg - valsartan 26mg PO bid, patient may also have been tipped into her currently presumed acute exacerbation of chronic systolic CHF with reduced LVEF. (3) Acute blood loss anemia: Plan: cf., Hb 6.8, MCV 99.6, MCHC 30.6 (05/04/2025, 11:46pm). cf., Hb 10.5, MCV 87.7, MCHC 35.0 (05/05/2025, 9:12am). cf., Hb 8.8, MCV 89.0, MCHC 34.9 (05/05/2025, 9:37pm). cf., Hb 8.1, MCV 90.6, MCHC 32.4 (05/06/2025, 9:37am). cf., baseline Hb range, 14.8 g/dL (11/19/2023, 4:36pm) to 13.7 g/dL (05/10/2024, 12:00am). Patient received 2 units of packed RBC on 05/05/2025 to address acute blood loss anemia with admission Hb 6.8 g/dL, MCV 99.6, MCHC 30.6 (05/04/2025, 11:46pm), due to presumed acute bleed from left lateral bella wound with 1 suture, which I could not appreciate at all on my 05/05/2025 pm and/or 05/06/2025 am/pm exams. Patient subsequently demonstrated an adequate response to these 2 units of packed RBC transfusions on 05/05/2025. I will check repeat Hb level in the 05/07/2025 am, and reserve packed RBC transfusion for Hb level less than 7 g/dL. (4) Atrial fibrillation: Plan: Rate-controlled off patient's home-scheduled carvedilol 6.25mg PO bid given p otential for this medication to cause hypotension in this patient who was admitted to [facility] on 05/05/2025 due to acute blood loss anemia with admission Hb 6.8 g/dL, MCV 99.6, MCHC 30.6 (05/04/2025, 11:46pm), due to presumed acute bleed from left lateral bella wound with 1 suture. Patient has also been held off her home-scheduled apixaban 5mg PO bid given potential for this medication to exacerbate acute blood loss anemia with admission Hb 6.8 g/dL, MCV 99.6, MCHC 30.6 (05/04/2025, 11:46pm), due to presumed acute bleed from left lateral bella wound with 1 suture. However, given concern for possible acute PE after not having received her home- scheduled apixaban 5mg PO bid on 05/05/2025 and on 05/06/2025, I have opted to start patient on apixaban 2.5mg PO bid (05/06/2025, 9:00pm), which is less than patient's home-scheduled apixaban 5mg PO bid, in order to avoid precipitating another acute blood loss anemia should patient bleed out from her left lateral bella wound with 1 suture. Of note, I cannot order CTA chest STAT on 05/06/2025 pm to rule out acute PE given patient's elevated creatinine 1.80 mg/dL (05/06/2025, 9:37am). In addition, I cannot order V/Q scan STAT on 05/06/2025 pm to rule out acute PE as there is no nuclear medicine supervisor and no nuclear tracer to run V/Q scan STAT on 05/06/2025 pm. Hence, patient awaits V/Q scan in the 05/07/2025 am. (5) Diabetes mellitus, type 2: Plan: Long-term glycemic control is excellent with HbA1c 7.4% (11/21/2023, 5:33am) and HbA1c 6.3% (05/05/2025, 9:12am). cf., glucose 402, CO2 15, anion gap 14 (05/04/2025, 11:40pm). cf., glucose 362, CO2 15, anion gap 21 (05/04/2025, 11:46pm). cf., glucose 310, CO2 20, anion gap 19 (05/05/2025, 12:48am). cf., glucose 240, CO2 22, anion gap 11 (05/05/2025, 4:35am). cf., glucose 147, CO2 22, anion gap 6 (05/06/2025, 5:42am). cf., glucose 226, CO2 21, anion gap 9(05/06/2025, 9:37am). NOT DKA. NOT HHS. Continue carbohydrate consistent diet, aspart insulin sliding scale qac + qhs, POC glucose qac + qhs, and lantus 10 units SQ qam. Hold OFF patient's home-scheduled metformin 500mg PO bid, which was last taken by the patient at her home on 05/04/2025, prior to patient coming to [facility] on 05/04/2025, 11:30pm, and which is currently on hold in [facility], given its potential to exacerbate acute lactic acid elevation. (6) Hypothyroidism: Plan: Patient has no goiter, lid lag, or proptosis on exam. Patient appears to be euthyroid on home-scheduled synthroid 88 ug PO daily with TSH 1.189 uIU/mL (05/05/2025, 9:12am). Plan 89yo female presenting with significant bleeding from wound on LLE. #Bleeding from wound / Acute blood loss anemia - Patient with bleeding from small wound on LLE. Acute blood loss anemia - Hgb=7.1 and Hct=23.2. Last values on record from April 2024 with Hgb=13.7 and Hct=42.8. Possibly arterial wound as blood described as "spurting" with copious loss. Wound not directly visualized by me as dressing in place -Admit to PCU -Maintain two large bore PIVs -Maintain pressure dressing on LLE -Check LLE angiogram for visualization of vasculature -Administer calcium gluconate x 2gm now -Check CBC, Fibrinogen now -CBC q 6 hours - transfuse for ongoing bleed or Hgb <8 -Pending results of angio may need Vascular Surgery assistance #Elevated troponin - patient denies chest pain or SOB. Likely due to demand ischemia in setting of hypotension and hypoxia. No ischemic changes on EKG -Trend troponin to peak -Telemetry monitoring #Atrial fibrillation -Hold Eliquis due to severe bleed -Hold Carvedilol for now due to acute bleed and hypotension #HFrEF - patient appears compensated -Hold Lasix, Entresto, Spironolactone and Carvedilol for now -Monitor volume status after transfusions - may require small dose of Lasix #Diabetes -Hold Metformin -Lantus 10u qAM -ISS #Trauma Alert - scans are unremarkable for acute fracture or internal injury. No additional injury noted during exam -SCDs to bilateral LE - chemoprophylaxis for DVT contraindicated in severe, acute bleed Admission and Anticipated Discharge Date Admission Date: May 05, 2025 Subjective "I started coughing up white phlegm, no blood this afternoon. I also got short of breath and wheezy, but no chest pain at all. It doesn't hurt when I breathe in or out. I didn't come into the hospital coughing or feeling short of breath and wheezy. I came into this hospital yesterday (05/05/2025) because of the bleeding coming from my left outside lower leg, you know? Now, I am not seeing any blood on my left outside lower leg, doc. I don't have any fevers, but I feel chilly all of a sudden. Am I coming down with a cold, doc? I didn't get my flu shot yet this year. I was going to get my flu shot, but I have not gotten my flut shot. Do I have the flu, doc? I really want to go home tomorrow (05/07/2025), doc. I do not want to stay in this hospital any more than tonight to see what is up with this coughing, this shortness of breath, and this wheezi ng. Tell me I can go home tomorrow, doc. I really want to go home tomorrow, ok? Review of Systems Constitutional: Positive for acute onset of cough productive of white phlegm, but no hemoptysis, on 05/06/2025 afternoon. Positive for acute onset of SOB at rest with audible expiratory wheeze on 05/06/2025 afternoon. Positive for acute onset of chills on 05/06/2025 afternoon. Negative for antecedent/coincident fevers, diaphoresis, sore throat, hemoptysis, chest pains, palpitations, pleurisy, nausea, vomiting, diarrhea, abdominal pain, pelvic pain, hematemesis, hematochezia, melena, hematuria, dysuria, frequency, urgency, headaches, dizziness, lightheadedness, visual changes, hearing changes, weakness, falls, syncope, trauma, travel history, sick contacts, or food/drug ingestions novel or new. All other review of systems are reported as negative by the patient on 05/06/2025. Physical Exam Constitutional: General: Uncomfortable with patient actively coughing up thin, white phlegm, no hemoptysis, on 05/06/2025, 6:15pm, yet very cooperative, coherent. Wide awake and alert. Not confused, lethargic, or obtunded. Patient speaks in complete, fluent, and articulate sentences without pause, interruption, cough, or wheeze. HEENT: NC/AT. EOMI. PERRL. No nystagmus, gaze paresis, anisocoria, miosis, mydriasis, chemosis, hyphema, scleral injection, conjunctivitis, or pterygium. No otorrhea. No rhinorrhea. Neck: Supple, no stridor, bruit, or goiter. Jugular venous pressure 5cm above the sternal angle of Archie, which is typically 5 cm above the right atrium. Lymph: No anterior/posterior cervical lymphadenopathy, supraclavicular/infraclavicular lymphadenopathy, axilla/epitrochlear/inguinal lymphadenopathy. Chest: Symmetric rise and fall with respirations. Non-tender to palpation. Heart: Regular rate, irregularly irregular rhythm, S1 and S2. No S3 or S4 summation gallop. No tripartite friction rub. No murmur. Lungs: Bibasilar crackles with audible expiratory wheeze on 05/06/2025, 6:15pm. No egophony, pectoriloquy, increase in tactile fremitus, or flatness/dullness to percussion at the bases. Abd: Soft, non-tender, non-distended. Bowel sounds auscultated in all 4 quadrants. No rebound, guarding, Barr's sign, or organomegaly. Ext: No clubbing, cyanosis, or edema. 2+ pedal pulses bilaterally. One suture on left lower lateral bella with no active bleed, blood clot, hematoma, ecchymosis, crepitus, fluctuance, discharge (sanguineous, serous, suppurative), ulceration, malodor, or lymphangitic streaking. Skin: No decubitus ulcer or enanthem or exanthem. Neuro: No tremors, tics, or myoclonus. DTR+. Urology: No albright catheter. No urethral discharge. Results & Data Results & Data Vital Signs (Past 12 Hours) Vital Signs Temp Pulse Pulse Resp BP Pulse Ox O2 Del Method 05/06/25 15:04 37.2 C 98 H 21 109/59 L 96 Room Air 05/06/25 14:49 100 H 05/06/25 11:07 36.6 C 104 H 20 117/67 94 Room Air 05/06/25 08:00 95 H 05/06/25 07:20 36.7 C 94 H 17 96/57 L 97 Room Air Laboratory Results WBC 4.89, N52 L36 M7 E4 B1, Hb 6.8, MCV 99.6, MCHC 30.6, platelet 166 (05/04/2025, 11:46pm). WBC 17.85, no differential, Hb 10.5, MCV 87.7, MCHC 35.0, platelet 164 (05/05/2025, 9:12am). WBC 19.07, no differential (05/05/2025, 3:42pm). WBC 16.28, no differential, Hb 8.8, MCV 89.0, MCHC 34.9, platelet 142 (05/05/2025, 9:37pm). WBC 9.07, N80 L10 M9, Hb 8.1, MCV 90.6, MCHC 32.4, platelet 154 (05/06/2025, 9:37am). Lactic acid #1 3.1 mmol/L (05/06/2025, 9:37am). Lactic acid #2 2.9 mmol/L (05/06/2025, 12:54pm). Lactic acid #3 2.1 mmol/L (05/06/2025, 6:10pm). Procalcitonin #1 4.16 (05/06/2025, 9:37am). MRSA nares screen (05/06/2025, 5:43pm): BIOFIRE respiratory pathogen PCR panel (05/06/2025, 5:43pm): Blood culture #1 (05/06/2025, 6:10pm): Blood culture #2 (05/06/2025, 6:10pm): Na 137, K 4.6, CO2 15, anion gap 14, glucose 402, BUN 34, creatinine 2.47, GFR 18.2, Ca 7.8, albumin 2.4, Ca corrected 9.1, AST 118, ALT 69, ALK PHOS 45, total bili 0.3 (05/04/2025, 11:40pm). Na 138, K 4.6, CO2 15, anion gap 21, glucose 362, BUN 30, creatinine 2.60, Ca ionized 1.08 (05/04/2025, 11:46pm). Na 139, K 5.8, CO2 20, anion gap 19, glucose 310,BUN 37, creatinine 2.50, Ca ionized 1.09 (05/05/2025, 12:48am). Na 141, K 4.4, CO2 22, anion gap 11, glucose 240,BUN 41, creatinine 2.02, GFR 2 3.2, Ca 9.1, albumin 3.2, Ca corrected 9.7, AST 114, ALT 108, ALK PHOS 56, total bili 1.2 (05/05/2025, 4:35am). Ca ionized 1.18 (05/05/2025, 4:35am). Na 139, K 4.2, CO2 22, anion gap 6, glucose 147, BUN 48, creatinine 1.82, GFR 26.3, Ca 8.5, albumin 3.0, Ca corrected 9.3, AST 30, ALT 47, ALK PHOS 37, total bili 0.7 (05/06/2025, 5:42am). Na 138, K 4.3, CO2 21, anion gap 9, glucose 226, BUN 47, creatinine 1.80, GFR 26.6, Ca 8.6 (05/06/2025, 9:37am). PO4 2.7, Mg 1.7 (05/06/2025, 9:37am). HbA1c 6.3% (, 9:12am). Lipase 45 U/L (05/04/2025, 11:40pm). CK 47 U/L (05/06/2025, 9:37am). Troponin-I #1 23.5 pg/mL (05/04/2025, 11:40pm). Troponin-I #2 51.0 pg/mL (05/05/2025, 2:07am). Troponin-I #3 104.4 pg/mL (05/05/2025, 4:35am). Troponin-I #4 74.6 pg/mL (05/06/2025, 9:37am). Troponin-I #5 52.8 pg/mL (05/06/2025, 5:33pm). BNP 142 pg/mL (05/06/2025, 4:43pm). TSH 1.189 uIU/mL (05/05/2025, 9:12am). D-dimer 840 ug/L (05/06/2025, 4:43pm). Diagnostic Findings Portable CXR (05/05/2025, 12:07am): 1. Expiratory image with evidence of emphysematous changes of both lung pierce. 2. Obliterated left costophrenic angle suggesting underlying mild pleural effusion. 3. Cardiomegaly with bilateral congested nolvia and calcified aortic arch wall. CT cervical spine without IV contrast (05/05/2025, 12:08am): 1. No acute fracture or subluxation in the cervical spine. 2. Cervical spondylosis. CT brain without IV contrast (05/05/2025, 12:08am): 1. No evidence of acute intracranial abnormality is demonstrated. 2. Chronic microvascular ischemic changes. 3. Cerebral atrophy. Portable CXR (05/06/2025, 4:30pm): 1. The cardiac silhouette appears enlarged. No evidence for overt pulmonary edema. CT chest without IV contrast (05/06/2025, 5:43pm): 1. No focal consolidation is identified in either lung. 2. Congestive changes of the cardiovascular system with enlarged heart and mild pulmonary vascular congestion. ECG Additional Comments: EKG #1 (05/05/2025, 12:18am): AFIB @ 73, QTC 440, no acute ST depressions/elevations (by my review). EKG #2 (05/06/2025, 12:41pm): AFIB @ 118, QTC 434, no acute ST depressions/elevations (by my review). EKG old (07/17/2024, 11:44am): AFIB @ 88, QTC 447, no acute ST depressions/elevations (by my review). TTE (10/26/2023, 12:06pm): 1. LVEF 30-35%. Mild concentric LVH. Moderate global hypokinesis of LV. No thrombus. 2. LA moderately dilated. Interatrial septum intact with no evidence of ASD. 3. RA mildly dilated. 4. RV normal size and normal systolic function. 5. No . Mild AR. 6. No MS. Moderate MR. 7. No TS. Moderate TR. 8. No PS. Mild WV. 9. Aortic root normal size. Ascending aorta and aortic arch normal size. 10.Borderline dilated IVC. 11.No pericardial effusion. (as per CARDS Dr. Andres Sparrow). TTE (03/13/2024, 9:27am): 1. LVEF 50%. Mild concentric LVH. No regional wall motion abnormalities. No thrombus. 2. LA moderately dilated. 3. RA moderately dilated. 4. RV not well visualized. 5. Trace to moderate AR. 6. Moderate MR. 7. Mild-moderate TR. 8. Ascending aorta normal size. 9. IVC normal size. 10.No pericardial effusion. (as per CARDS Dr. Anthony Garcia). PG Care Time/CCT Total # of Minutes Spent Total Time Spent with Patient: Total time spent is greater than 50% in coordination of care (as documented) at patient's floor/unit and/or counseling patient: Coding Level of Care Code 13407 SUB INP/OBS CARE 3/50MIN Diagnoses Acute on chronic systolic and diastolic heart failure, NYHA class 4 I50.43 Acute renal failure N17.9 Acute blood loss anemia D62 Permanent atrial fibrillation I48.21 Atrial fibrillation type: permanent Type 2 diabetes mellitus without complication, without long-term current use of insulin E11.9 Diabetes mellitus group home insulin use: without terminal system operator use Diabetes mellitus complication status: without complication Acquired hypothyroidism E03.9 Hypothyroidism type: acquired (4) Atrial fibrillation Atrial fibrillation type: permanent Qualified Code(s): I48.21 - Permanent atrial fibrillation (5) Diabetes mellitus, type 2 Diabetes mellitus terminal system operator insulin use: without terminal system operator use Diabetes mellitus complication status: without complication Qualified Code(s): E11.9 - Type 2 diabetes mellitus without complications (6) Hypothyroidism Hypothyroidism type: acquired Qualified Code(s): E03.9 - Hypothyroidism, unspecified
--- NOTE | 2025-05-06 18:43 | CT Scan Report ---
CT CHEST WITHOUT CONTRAST: HISTORY: Shortness of breath TECHNIQUE: CT of the chest was obtained without intravenous contrast. Coronal and sagittal reformats were created. COMPARISON: Chest radiograph from the same day. FINDINGS: LOWER NECK: The right thyroid lobe is not seen. 5 mm left thyroid lobe nodule. LYMPH NODES: A few small nonenlarged lymph nodes in the mediastinum. No lymphadenopathy by size criteria. CARDIOVASCULAR: Cardiac size is enlarged. Coronary artery and valvula calcifications are noted. Small pericardial fluid. No aortic aneurysm. LUNGS: The trachea and central bronchi are widely patent. No focal confluent infiltrates are seen. Mild pulmonary vascular congestion. There are scattered pulmonary nodules measuring up to 4 mm, for example in the medial aspect of the right lung base (series 2, image 48) PLEURA: There are no pleural effusions. There is no pneumothorax. UPPER ABDOMEN: No acute findings. OSSEOUS STRUCTURES: No acute findings IMPRESSION: No focal consolidation is identified in either lung. Congestive changes of the cardiovascular system with enlarged heart and mild pulmonary vascular congestion. Electronically signed by Shay Spence 05-06-2025 6:43 PM
--- NOTE | 2025-05-06 19:21 | Electrocardiogram Report ---
Test Reason : Blood Pressure : */* mmHG Vent. Rate : 118 BPM Atrial Rate : * BPM P-R Int : * ms QRS Dur : 80 ms QT Int : 310 ms P-R-T Axes : * 20 206 degrees QTcB Int : 434 ms Atrial fibrillation with rapid ventricular response Low voltage QRS Nonspecific T wave abnormality Abnormal ECG When compared with ECG of 05-May-2025 00:18, (unconfirmed) Vent. rate has increased by 45 bpm Nonspecific T wave abnormality now evident in Inferior leads Nonspecific T wave abnormality now evident in Anterolateral leads Confirmed by Prabhu Chen ([id number]) on 05/06/2025 7:21:15 PM Referred By: REFERRED SELF Confirmed By: Prabhu Chen
[2025-05-06] MEDS: CEFEPIME 2000MG 2,000 MG/20 ML SYR IV ONE (19:26)
[2025-05-06] MEDS: VANCOMYCIN HCL 1,500 MG in SODIUM CHLORIDE 0.9% 500 ML IV ONE (19:27)
[2025-05-06] MEDS: FUROSEMIDE 40 MG/4 ML VIAL IV ONE (19:31)
[2025-05-06] MEDS: APIXABAN 2.5 MG TAB PO SCH (19:31)
[2025-05-06 19:59] LABS: Chlamydia pneumoniae PCR Not Detected (NotDetected); Coronavirus 229E PCR Not Detected (NotDetected); Coronavirus CoV-2 (COVID19)PCR Not Detected (NotDetected); Coronavirus HKU1 PCR Not Detected (NotDetected); Coronavirus NL63 PCR Not Detected (NotDetected); Coronavirus OC43PCR Not Detected (NotDetected); Human Metapneumovirus PCR Not Detected (NotDetected); Parainfluenza Virus 1 PCR Not Detected (NotDetected); Parainfluenza Virus 2 PCR Not Detected (NotDetected); Parainfluenza Virus 3 PCR Not Detected (NotDetected); Parainfluenza Virus 4 PCR Not Detected (NotDetected); Respiratory Syncytial VirusPCR Not Detected (NotDetected); Rhinovirus/Enterovirus PCR Not Detected (NotDetected)
--- NOTE | 2025-05-06 22:44 | Electrocardiogram Report ---
Test Reason : Blood Pressure : */* mmHG Vent. Rate : 73 BPM Atrial Rate : * BPM P-R Int : * ms QRS Dur : 86 ms QT Int : 400 ms P-R-T Axes : * 19 70 degrees QTcB Int : 440 ms Atrial fibrillation Abnormal ECG When compared with ECG of 17-Jul-2024 11:44, Nonspecific T wave abnormality no longer evident in Inferior leads Confirmed by Prabhu Chen ([id number]) on 05/06/2025 10:44:36 PM Referred By: REFERRED SELF Confirmed By: Prabhu Chen
[2025-05-07 05:50] LABS: Hematocrit (blood only) 22.0 % (37.0-47.0); Hemoglobin 7.5 g/dl (12.0-16.0); Immature Granulocytes # (auto) 0.04 K/uL (0.01-0.20); Immature Granulocytes % (auto) 0.5 %; Mean Corpuscular Hemoglobin 30.5 pg (25.0-34.0); Mean Corpuscular Volume 89.4 fL (80.0-100.0); Platelet Count 140 K/uL (130-400); RDW Standard Deviation 52.3 fL (36.4-46.3); Red Blood Count 2.46 M/uL (4.20-5.40); White Blood Count 8.16 K/ul (4.8-10.8)
[2025-05-07 06:05] LABS: Anion Gap 7.0 (3-11); Blood Urea Nitrogen 41.0 mg/dl (6-23); Calcium 8.4 mg/dl (8.6-10.3); Carbon Dioxide 23.0 mmol/L (21-32); Chloride 109.0 mmol/L (98-107); Creatinine Clr Calc Pharmacy 25.1 ml/min; Glucose 114.0 mg/dl (70-99(Fasting)); Potassium 3.9 mmol/L (3.5-5.1); Sodium 139.0 mmol/L (136-145)
[2025-05-07 06:11] LABS: RBC Morphology Unremarkable
[2025-05-07] MEDS: CEFEPIME 1000MG 1,000 MG/10 ML SYR IV SCH (06:11)
[2025-05-07 07:52] VITALS: PULSE 109; RESP 17
--- NOTE | 2025-05-07 10:24 | Pharmacy Report ---
Pharmacy PK ABX Note - Date of Service May 07, 2025 - Assessment and Plan Assessment 89 year old F receiving vancomcycin and cefepime for possible CAP. Blood cultures pending. Plan Vancomycin * Loading dose: 1500 mg IV x 1 received last evening * Random vancomycin level this AM was ~13 mcg/ml - CrCl 25 ml/min * Estimated t1/2 >24 hours therefore will continue dose based upon levels * Will give vancomycin 1000 mg x 1 now and reorder another random level tomorrow AM to assist with further dosing Pharmacy will continue to follow and will adjust dose/frequency as necessary. Thank you. Pharmacy has transitioned to AUC monitoring for vancomycin. AUC/IBIS is the preferred PK/PD target and is associated with decreased risk of nephrotoxicity compared to traditional trough targets.
[2025-05-07 11:31] VITALS: TEMP 98.1; O2SAT 90
[2025-05-07] MEDS: VANCOMYCIN HCL / NSS 1,000 MG/270 ML BAG IV ONE (12:08)
--- NOTE | 2025-05-07 13:37 | Nuclear Medicine Report ---
NM pul perfusion HISTORY: 89 years-old Female SOB; D-dimer 840 acute shortness of breath COMPARISON: Chest CT 05/06/2025 TECHNIQUE: Nuclear medicine perfusion study was obtained following the intravenous demonstration of 5 .2 mCi technetium 99 MAA administered through the right arm FINDINGS: Chest CT demonstrated clear lung pierce without pleural effusion or airspace consolidation. No large segmental perfusion defects are identified. IMPRESSION: Low probability for pulmonary embolus. ACT 112: Negative or not required by law. The above report was generated using voice recognition software. It may contain grammatical, syntax o r spelling errors. Electronically signed by: Luis Alfredo Collins M.D. 05/07/2025 1:36 PM
[2025-05-07 14:58] VITALS: BP 107/58
--- NOTE | 2025-05-07 17:30 | Discharge Summary ---
Discharge Summary Date of Service May 07, 2025 Principal Dx & Hospital Course #1 = Principal Diagnosis (1) Acute on chronic systolic and diastolic heart failure, NYHA class 4: Patient complained of acute onset of cough, productive of white phlegm, SOB, and wheezing on 05/06/2025, 4:00pm. Patient demonstrated bibasilar crackles with audible expiratory wheeze on 05/06/2025, 6:15pm exam. Patient received 2 units of packed RBC on 05/05/2025 to address acute blood loss anemia with admission Hb 6.8 g/dL, MCV 99.6, MCHC 30.6 (05/04/2025, 11:46pm), due to presumed acute bleed from left lateral bella wound with 1 suture. Subsequently, lab testing showed: Troponin-I #1 23.5 pg/mL (05/04/2025, 11:40pm). Troponin-I #2 51.0 pg/mL (05/05/2025, 2:07am). Troponin-I #3 104.4 pg/mL (05/05/2025, 4:35am). Troponin-I #4 74.6 pg/mL (05/06/2025, 9:37am). Troponin-I #5 52.8 pg/mL (05/06/2025, 5:33pm). BNP 142 pg/mL (05/06/2025, 4:43pm). TSH 1.189 uIU/mL (05/05/2025, 9:12am). D-dimer 840 ug/L (05/06/2025, 4:43pm). Subsequently, EKG testing revealed: EKG #1 (05/05/2025, 12:18am): AFIB @ 73, QTC 440, no acute ST depressions/elevations (by my review). EKG #2 (05/06/2025, 12:41pm): AFIB @ 118, QTC 434, no acute ST depressions/elevations (by my review). EKG old (07/17/2024, 11:44am): AFIB @ 88, QTC 447, no acute ST depressions/elevations (by my review). Subsequently, imaging revealed: Portable CXR (05/06/2025, 4:30pm): 1. The cardiac silhouette appears enlarged. No evidence for overt pulmonary edema. CT chest without IV contrast (05/06/2025, 5:43pm): 1. No focal consolidation is identified in either lung. 2. Congestive changes of the cardiovascular system with enlarged heart and mild pulmonary vascular congestion. Hence, I surmised that patient's complaints of acute onset of cough, productive of white phlegm, SOB, and wheezing this afternoon (05/06/2025, 4:00pm) was probably due to acute exacerbation of chronic systolic CHF with reduced LVEF. cf., TTE (10/26/2023, 12:06pm): 1. LVEF 30-35%. Mild concentric LVH. Moderate global hypokinesis of LV. No thrombus. 2. LA moderately dilated. Interatrial septum intact with no evidence of ASD. 3. RA mildly dilated. 4. RV normal size and normal systolic function. 5. No . Mild AR. 6. No MS. Moderate MR. 7. No TS. Moderate TR. 8. No PS. Mild PA. 9. Aortic root normal size. Ascending aorta and aortic arch normal size. 10.Borderline dilated IVC. 11.No pericardial effusion. (as per CARDS Dr. Andres Sparrow). TTE (03/13/2024, 9:27am): 1. LVEF 50%. Mild concentric LVH. No regional wall motion abnormalities. No thrombus. 2. LA moderately dilated. 3. RA moderately dilated. 4. RV not well visualized. 5. Trace to moderate AR. 6. Moderate MR. 7. Mild-moderate TR. 8. Ascending aorta normal size. 9. IVC normal size. 10.No pericardial effusion. (as per CARDS Dr. Anthony Garcia). To this end, patient received lasix 40mg IV x 1 dose (05/06/2025, 7:06pm), followed by TTE (05/07/2025, 6:59am) to evaluate for any interval change(s) in LV systolic performance. cf., TTE (05/07/2025, 6:59am): 1. LVEF 55-60%. No regional wall motion abnormalities. Mild concentric LVH. Indeterminate LV diastolic dysfunction. 2. RV normal size and systolic function. 3. LA severely dilated. RA not well visualized. No evidence of ASD. Resolution does not allow assessment for PFO. 4. No significant . Trace AR. 5. No PS. Trace PA. 6. No MS. Mild MR. 7. No TS. Mild-moderate TR. 8. Aortic root normal size. Normal IVC size and collapsibility with sniff indicates normal RAP 3 mm Hg. 9. Trace pericardial effusion. (as per CARDS Dr. Zaki Emery). Hence, patient's LVEF has actually increased since 03/13/2024, 9:27am TTE, while patient's LA has now become severely dilated. Hence, I surmise that patient's diastolic dysfunction has worsened since 03/13/2024, 9:27am TTE. At the same time, I could not rule out acute PE to explain patient's complaints of acute onset of cough, productive of white phlegm, SOB, and wheezing on 05/06/2025, 4:00pm, as patient had not received her home-scheduled apixaban 5mg PO bid on 05/04/2025, 05/05/2025, and 05/06/2025, given patient's acute blood loss anemia with admission Hb 6.8 g/dL, MCV 99.6, MCHC 30.6 (05/04/2025, 11:46pm), due to presumed acute bleed from left lateral bella wound with 1 suture. Subsequently, I examined patient's left lateral bella wound with 1 suture on 05/05/2025 pm and again on 05/06/2025 am/pm, and I noted no overt/external bleeding at all, and I cannot appreciate any hematoma/ecchymosis at left lateral bella wound with 1 suture. Hence, I opted to start patient on apixaban 2.5mg PO bid (05/06/2025, 7:31pm; 05/07/2025, 9:40am), which is less than patient's home-scheduled apixaban 5mg PO bid, in order to avoid precipitating another acute blood loss anemia should patient bleed out from her left lateral bella wound with 1 suture. Of note, I cold not order CTA chest STAT on 05/06/2025 pm to rule out acute PE given patient's elevated creatinine 1.80 mg/dL (05/06/2025, 9:37am). In addition, I could not order V/Q scan STAT on 05/06/2025 pm to rule out acute PE as there is no solar maintenance technician and no nuclear tracer to run V/Q scan STAT on 05/06/2025 pm. Subsequently, patient underwent V/Q scan (05/07/2025, 8:52am) which revealed low probability for acute PE. Subsequently, patient's Hb level declined: cf., Hb 6.8, MCV 99.6, MCHC 30.6 (05/04/2025, 11:46pm). cf., Hb 10.5, MCV 87.7, MCHC 35.0 (05/05/2025, 9:12am). cf., Hb 8.8, MCV 89.0, MCHC 34.9 (05/05/2025, 9:37pm). cf., Hb 8.1, MCV 90.6, MCHC 32.4 (05/06/2025, 9:37am). cf., Hb 7.5, MCV 89.4, MCHC 34.1 (05/07/2025, 5:28am). Hence, patient was asked if she would like to continue with apixaban 2.5mg PO bid with concern for continued decreases in Hb levels should apixaban 2.5mg PO bid be continued while in [facility] or on hospital discharge back to her home, and patient stated no as patient did not want to have to go through additional blood transfusion(s) which could cause recurrent acute fluid overload. Instead, patient opted to start ASA 81mg PO daily as a replacement for apixaban 2.5mg PO bid to provide prophylaxis against thrombo-embolism in the setting of chronic/persistent/permanent AFIB as patient stated, "I am 89 years old and I not had any stroke or mini-stroke in my whole life and I do not want to go through the bleeding problem with my left lower leg that I went through during this hospital stay, ever again. So, I am gonna go with a baby aspirin a day from now on." Patient was subsequently discharged back to her home with an electronic prescription for ASA 81mg PO daily, #30 tablets, no refills, transmitted to her [id number], [address], [place] [address], on 05/07/2025, prior to hospital discharge back to her home on 05/07/2025. Of note, I could not rule out acute viral CAP and/or acute bacterial CAP to explain patient's complaints of acute onset of cough, productive of white phlegm, SOB, and wheezing this afternoon (05/06/2025, 4:00pm). To this end, I ordered BIOFIRE respiratory pathogen PCR panel (05/06/2025, 5:43pm) to evaluate patient for acute viral infection; I also ordered MRSA nares screen (05/06/2025, 5:43pm) to evaluate patient for staphylococcal infection. Given the concomitant elevation of both lactic acid and procalcitonin levels (see below), I opted to start patient empirically on cefepime 2g IV x 1 dose (05/06/2025, 7:26pm), followed by cefepime 1g IV q12 (day #1/3 on 05/07/2025, 7:26am); patient was also started empirically on vancomycin 1.5g IV x 1 dose (05/06/2025, 7:27pm). Subsequently, BIOFIRE respiratory pathogen PCR panel (05/06/2025, 6:06pm) and MRSA nares screen (05/06/2025, 6:00pm) were both negative. In addition, both lactic acid and procalcitonin levels declined (as shown below): Of note, confounding factors for patient's elevated lactic acid level included: (a) patient's home-scheduled metformin 500mg PO bid, which was last taken by the patient at her home on 05/04/2025, prior to patient coming to [facility] ER on 05/04/2025, 11:30pm, and which is currently on hold in [facility]; (b) acute blood loss anemia with admission Hb 6.8 g/dL, MCV 99.6, MCHC 30.6 (05/04/2025, 11:46pm), due to presumed acute bleed from left lateral bella wound with 1 suture. Of final note, confounding factors for patient's elevated procalcitonin level include: (a) acute renal failure with admission creatinine 2.47 mg/dL (05/04/2025, 11:40pm); (b) acute blood loss anemia with admission Hb 6.8 g/dL, MCV 99.6, MCHC 30.6 (05/04/2025, 11:46pm), due to presumed acute bleed from left lateral bella wound with 1 suture. Hence, I discontinued cefepime 1g IV q12 (day #1/3 on 05/07/2025, 7:26am) on 05/07/2025 am. cf., Lactic acid #1 3.1 mmol/L (05/06/2025, 9:37am). cf., Lactic acid #2 2.9 mmol/L (05/06/2025, 12:54pm). cf., Lactic acid #3 2.1 mmol/L (05/06/2025, 6:10pm). cf., Lactic acid #4 0.8 mmol/L (05/07/2025, 5:28am). cf., Procalcitonin #1 4.16 ng/mL (05/06/2025, 9:37am). cf., Procalcitonin #2 2.75 ng/mL (05/07/2025, 5:28am). (2) Acute renal failure: cf., BUN 34, creatinine 2.47, GFR 18.2 (05/04/2025, 11:40pm). cf., BUN 30, creatinine 2.60 (05/04/2025, 11:46pm). cf., BUN 37, creatinine 2.50 (05/05/2025, 12:48am). cf., BUN 41, creatinine 2.02, GFR 23.2 (05/05/2025, 4:35am). cf., BUN 48, creatinine 1.82, GFR 26.3 (05/06/2025, 5:42am). cf., BUN 47, creatinine 1.80, GFR 26.6 (05/06/2025, 9:37am). cf., BUN 41, creatinine 1.57, GFR 31.3 (05/07/2025, 5:28am). cf., baseline creatinine range, 0.89 - 1.17 (11/19/2023 - 12/27/2023). Etiology of acute renal failure remains unclear, but is probably due to a combination of patient's home-scheduled spironolactone 12.5mg PO qam and sacubitril 24mg - valsartan 26mg PO bid. Hence, I opted to hold off patient's home-scheduled spironolactone 12.5mg PO qam and sacubitril 24mg - valsartan 26mg PO bid while patient remained in [facility] and on hospital discharge back to her home on 05/07/2025. Of note, by holding off patient's home-scheduled spironolactone 12.5mg PO qam and sacubitril 24mg - valsartan 26mg PO bid, patient may also have been tipped into her currently presumed acute exacerbation of chronic systolic CHF with reduced LVEF. Of final note, I discharged patient back to her home on 05/07/2025 with an electronic prescription for lasix 20mg PO daily, #30 tablets, no refills, novak smitted to her [facility] store [id number], [address] [place] [address], [place] [address], on 05/07/2025, prior to hospital discharge back to her home on 05/07/2025. (3) Acute blood loss anemia: cf., Hb 6.8, MCV 99.6, MCHC 30.6 (05/04/2025, 11:46pm). cf., Hb 10.5, MCV 87.7, MCHC 35.0 (05/05/2025, 9:12am). cf., Hb 8.8, MCV 89.0, MCHC 34.9 (05/05/2025, 9:37pm). cf., Hb 8.1, MCV 90.6, MCHC 32.4 (05/06/2025, 9:37am). cf., Hb 7.5, MCV 89.4, MCHC 34.1 (05/07/2025, 5:28am). cf., baseline Hb range, 14.8 g/dL (11/19/2023, 4:36pm) to 13.7 g/dL (05/10/2024, 12:00am). Patient received 2 units of packed RBC on 05/05/2025 to address acute blood loss anemia with admission Hb 6.8 g/dL, MCV 99.6, MCHC 30.6 (05/04/2025, 11:46pm), due to presumed acute bleed from left lateral bella wound with 1 suture, which I could not appreciate at all on my 05/05/2025 pm and/or 05/06/2025 am/pm exams. Patient subsequently demonstrated an adequate response to these 2 units of packed RBC transfusions on 05/05/2025. (4) Atrial fibrillation: Rate-controlled off patient's home-scheduled carvedilol 6.25mg PO bid given potential for this medication to cause hypotension in this patient who was admitted to [facility] on 05/05/2025 due to acute blood loss anemia with admission Hb 6.8 g/dL, MCV 99.6, MCHC 30.6 (05/04/2025, 11:46pm), due to presumed acute bleed from left lateral bella wound with 1 suture. Patient was held off her home-scheduled apixaban 5mg PO bid given potential for this medication to exacerbate acute blood loss anemia with admission Hb 6.8 g/dL , MCV 99.6, MCHC 30.6 (05/04/2025, 11:46pm), due to presumed acute bleed from left lateral bella wound with 1 suture. However, given concern for possible acute PE after not having received her home- scheduled apixaban 5mg PO bid on 05/05/2025 and on 05/06/2025, I opted to start patient on apixaban 2.5mg PO bid (05/06/2025, 9:00pm), which is less than patient's home-scheduled apixaban 5mg PO bid, in order to avoid precipitating another acute blood loss anemia should patient bleed out from her left lateral bella wound with 1 suture. Of note, I could not order CTA chest STAT on 05/06/2025 pm to rule out acute PE given patient's elevated creatinine 1.80 mg/dL (05/06/2025, 9:37am). In addition, I could not order V/Q scan STAT on 05/06/2025 pm to rule out acute PE as there is no solar maintenance technician and no nuclear tracer to run V/Q scan STAT on 05/06/2025 pm. Subsequently, patient underwent V/Q scan (05/07/2025, 8:52am) which revealed low probability for acute PE. Subsequently, patient's Hb level declined: cf., Hb 6.8, MCV 99.6, MCHC 30.6 (05/04/2025, 11:46pm). cf., Hb 10.5, MCV 87.7, MCHC 35.0 (05/05/2025, 9:12am). cf., Hb 8.8, MCV 89.0, MCHC 34.9 (05/05/2025, 9:37pm). cf., Hb 8.1, MCV 90.6, MCHC 32.4 (05/06/2025, 9:37am). cf., Hb 7.5, MCV 89.4, MCHC 34.1 (05/07/2025, 5:28am). Hence, patient was asked if she would like to continue with apixaban 2.5mg PO bid with concern for continued decreases in Hb levels should apixaban 2.5mg PO bid be continued while in [facility] or on hospital discharge back to her home, and patient stated no as patient did not want to have to go through additional blood transfusion(s) which could cause recurrent acute fluid overload. Instead, patient opted to start ASA 81mg PO daily as a replacement for apixaban 2.5mg PO bid to provide prophylaxis against thrombo-embolism in the setting of chronic/persistent/permanent AFIB as patient stated, "I am 89 years old and I not had any stroke or mini-stroke in my whole life and I do not want to go through the bleeding problem with my left lower leg that I went through during this hospital stay, ever again. So, I am gonna go with a baby aspirin a day from now on." Patient was subsequently discharged back to her home with an electronic prescription for ASA 81mg PO daily, #30 tablets, no refills, transmitted to her [facility] store [id number], [address], [place] [address], on 05/07/2025, prior to hospital discharge back to her home on 05/07/2025. (5) Diabetes mellitus, type 2: Long-term glycemic control is excellent with HbA1c 7.4% (11/21/2023, 5:33am) and HbA1c 6.3% (05/05/2025, 9:12am). cf., glucose 402, CO2 15, anion gap 14 (05/04/2025, 11:40pm). cf., glucose 362, CO2 15, anion gap 21 (05/04/2025, 11:46pm). cf., glucose 310, CO2 20, anion gap 19 (05/05/2025, 12:48am). cf., glucose 240, CO2 22, anion gap 11 (05/05/2025, 4:35am). cf., glucose 147, CO2 22, anion gap 6 (05/06/2025, 5:42am). cf., glucose 226, CO2 21, anion gap 9 (05/06/2025, 9:37am). cf., glucose 114, CO2 23, anion gap 7 (05/07/2025, 5:28am). NOT DKA. NOT HHS. Patient received carbohydrate consistent diet, aspart insulin sliding scale qac + qhs, POC glucose qac + qhs, and lantus 10 units SQ qam while in [facility]. Patient did not receive her home-scheduled metformin 500mg PO bid, which was last taken by the patient at her home on 05/04/2025, prior to patient coming to [facility] ER on 05/04/2025, 11:30pm, given its potential to exacerbate acute lactic acid elevation. Patient will continue with carbohydrate consistent diet and will resume her home-scheduled metformin 500mg PO bid on hospital discharge back to her home on 05/07/2025. Patient will not continue with aspart insulin sliding scale qac + qhs, POC glucose qac + qhs, and lantus 10 units SQ qam on hospital discharge back to her home on 05/07/2025. (6) Hypothyroidism: Patient has no goiter, lid lag, or proptosis on exam. Patient appears to be euthyroid on home-scheduled synthroid 88 ug PO daily with TSH 1.189 uIU/mL (05/05/2025, 9:12am). Hence, patient received this medication while in [facility] and will continue this medication on hospital discharge back to her home on 05/07/2025. Plan 89yo female presenting with significant bleeding from wound on LLE. #Bleeding from wound / Acute blood loss anemia - Patient with bleeding from small wound on LLE. Acute blood loss anemia - Hgb=7.1 and Hct=23.2. Last values on record from April 2024 with Hgb=13.7 and Hct=42.8. Possibly arterial wound as blood described as "spurting" with copious loss. Wound not directly visualized by me as dressing in place -Admit to PCU -Maintain two large bore PIVs -Maintain pressure dressing on LLE -Check LLE angiogram for visualization of vasculature -Administer calcium gluconate x 2gm now -Check CBC, Fibrinogen now -CBC q 6 hours - transfuse for ongoing bleed or Hgb <8 -Pending results of angio may need Vascular Surgery assistance #Elevated troponin - patient denies chest pain or SOB. Likely due to demand ischemia in setting of hypotension and hypoxia. No ischemic changes on EKG -Trend troponin to peak -Telemetry monitoring #Atrial fibrillation -Hold Eliquis due to severe bleed -Hold Carvedilol for now due to acute bleed and hypotension #HFrEF - patient appears compensated -Hold Lasix, Entresto, Spironolactone and Carvedilol for now -Monitor volume status after transfusions - may require small dose of Lasix #Diabetes -Hold Metformin -Lantus 10u qAM -ISS #Trauma Alert - scans are unremarkable for acute fracture or internal injury. No additional injury noted during exam -SCDs to bilateral LE - chemoprophylaxis for DVT contraindicated in severe, acu te bleed Admission HPI Per Admitting Provider Mary Grace Iyer is an 89yo female with history of atrial fibrillation on A pixaban anticoagulation, HF with reduced EF (30-35% per echo 10/26/2023 with mild AR and moderate MR) and diabetes presenting with hemorrhage from LLE wound and acute blood loss anemia. Patient states that months ago she noted a small wound a "funny little thing" on her left lateral ankle. This evening she scratched the wound and dislodged a scab which led to severe bleeding and "spurting blood". 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 EMS was called to the home and noted a significant amount of blood all over the home. Patient was hypoxic at 80% initially, placed on supplemental O2 with improvement. Her ankle wound was dressed with QuickClot gauze. Upon arrival she was hypotensive with elevated heart rate of 96 bpm. Her dressing was removed and there was copious amount of bleeding from the lesion. ER Attending placed a Figure-8 stitch in the wound and applied a pressure dressing. Patient transiently hypotensive in the ER with blood pressure as low as 63/43. Transfused 2u PRBCs Patient complaining of back pain currently - states she has chronic back pain due to bulging disc. Otherwise no complaints. Denies fever, chills, chest pain, cough, SOB, abdominal pain, nausea, vomiting, diarrhea Discharge Exam Constitutional General: Comfortable with patient no longer coughing at all on discharge date 05/07/2025, 1:52pm). General: Uncomfortable with patient actively coughing up thin, white phlegm, no hemoptysis, on 05/06/2025, 6:15pm, yet very cooperative, coherent. Wide awake and alert. Not confused, lethargic, or obtunded. Patient speaks in complete, fluent, and articulate sentences without pause, interruption, cough, or wheeze. HEENT: NC/AT. EOMI. PERRL. No nystagmus, gaze paresis, anisocoria, miosis, mydriasis, chemosis, hyphema, scleral injection, conjunctivitis, or pterygium. No otorrhea. No rhinorrhea. Neck: Supple, no stridor, bruit, or goiter. Jugular venous pressure 5cm above the sternal angle of Archie, which is typically 5 cm above the right atrium. Lymph: No anterior/posterior cervical lymphadenopathy, supraclavicular/infraclavicular lymphadenopathy, axilla/epitrochlear/inguinal lymphadenopathy. Chest: Symmetric rise and fall with respirations. Non-tender to palpation. Heart: Regular rate, chronically/permanently irregularly irregular rhythm on 05/06/2025 and on discharge date 05/07/2025, S1 and S2. No S3 or S4 summation gallop. No tripartite friction rub. No murmur. Lungs: Clear to auscultation and percussion with no audible expiratory wheeze, egophony, pectoriloquy, increase in tactile fremitus, or flatness/dullness to percussion at the bases on hospital discharge date/time, 05/07/2025, 1:52pm. Lungs: Bibasilar crackles with audible expiratory wheeze on 05/06/2025, 6:15pm. No egophony, pectoriloquy, increase in tactile fremitus, or flatness/dullness to percussion at the bases. Abd: Soft, non-tender, non-distended. Bowel sounds auscultated in all 4 quadrants. No rebound, guarding, Barr's sign, or organomegaly. Ext: No clubbing, cyanosis, or edema. 2+ pedal pulses bilaterally. One suture on left lower lateral bella with no active bleed, blood clot, hematoma, ecchymosis, crepitus, fluctuance, discharge (sanguineous, serous, suppurative), ulceration, malodor, or lymphangitic streaking on 05/05/2025, 05/06/2025, and discharge d ate 05/07/2025. Skin: No decubitus ulcer or enanthem or exanthem. Neuro: No tremors, tics, or myoclonus. DTR+. Urology: No albright catheter. No urethral discharge. Discharge Plan Discharge Items Patient Disposition: Home - Self-Care Reason For Visit: HEMORRHAGE, ACUTE BLOOD LOSS ANEMIA Discharge Diagnosis: 1. Acute blood loss anemia with admission Hb 6.8 g/dL, MCV 99.6, MCHC 30.6 (05/04/2025, 11:46pm), due to presumed acute bleed from left lateral bella wound with 1 suture, which I could not appreciate at all on my 05/05/2025 pm and/or 05/06/2025 am/pm and/or 05/07/2025 am/pm exam. RESOLVING well. 2. Acute on chronic systolic and diastolic heart failure, NYHA class 4, RESOLVING well. Condition on Discharge: Fair Activity: Resume your previous activity Lifting: Gradually increase as tolerated Bathing: No limitations Exercise/Sports: Gradually increase as tolerated Weightbearing: Full weightbearing Non-emergency contact: Primary Care Provider Call non-emergency contact if: you have any medication questions Follow-up/Referrals: Jonny Preston PA-C [Primary Care Provider] - Diet: Heart Healthy Addtl Attending Provider Instructions: 1. See your PCP Mr. Jonny Preston PA-C, within 5-7 days of hospital discharge, for routine follow up visit, including repeat Hb and creatinine level testing. Pending Studies at Discharge: Yes Studies:: 1. See your PCP Mr. Jonny Preston PA-C, within 5-7 days of hospital discharge, for routine follow up visit, including repeat Hb and creatinine level testing. Stand-Alone Forms: My [facility], Smoking Cessation Medications and DC Order Prescriptions: New furosemide [Lasix] 20 mg tablet 20 mg PO DAILY Qty: 30 0RF Continued cholecalciferol (vitamin D3) 25 mcg (1,000 unit) capsule 1,000 units PO DAILY multivitamin Tablet 1 tab PO DAILY Vascepa 1 gram capsule 1 gm PO DAILY levothyroxine 88 mcg capsule 88 mcg PO DAILY atorvastatin 40 mg tablet 40 mg PO DAILY glucosamine HCl 1,500 mg tablet 3,000 mg PO DAILY metformin 500 mg tablet 500 mg PO BID ascorbic acid (vitamin C) 500 mg capsule 1,000 mg PO DAILY [id number] oil 720-1,200 mg capsule 1 cap PO DAILY cholecalciferol (vitamin D3) 50 mcg (2,000 unit) capsule 50 mcg PO DAILY meclizine 25 mg tablet 25 mg PO BID PRN (Reason: Dizziness) carvedilol 6.25 mg tablet 6.25 mg PO BIDM Qty: 180 3RF vitamin E 400 unit Capsule 400 unit PO DAILY acetaminophen [Tylenol Extra Strength] 500 mg Tablet 1,000 mg PO Q6H PRN (Reason: Pain) Benefiber Tab 1 tab PO DIRECTED PRN (Reason: Constipation) Held spironolactone 25 mg tablet 12.5 mg PO QAM Qty: 180 3RF Hold Instructions: Hypotension Entresto 24-26 mg tablet 1 tab PO BID Hold Instructions: Resume on 05/14/25. Hold OFF Entresto 24-26mg PO bid until you see your PCP Mr. Jonny Preston PA-C, within 5-7 days, to undergo repeat creatinine level testing. Discontinued Eliquis 5 mg tablet 5 mg PO BID furosemide [Lasix] 20 mg tablet 20 mg PO DAILY PRN (Reason: weight gain or leg swelling) Qty: 30 0RF Discharge Orders: Discharge Order (Routine); Ordered 05/07/25 Ordered By: Justin Mendes Discharge Order- CHF (Routine); Ordered 05/07/25 Ordered By: Justin Mendes Admission Data Admit Date/Time: 05/05/25 02:16 Attending Provider: Justin Mendes Admit Provider: Didi Bianchi Primary Care Provider: Jonny Preston Other Providers: Didi Bianchi; Rodney Espinoza [facility] Hospital Stay Data Consultations 05/05/25 01:35 ED Decision to Admit Stat Diagnostic Imagining Performed 05/05/25 00:08 CT cervical spine wo con Stat CT head/brain wo con Stat 05/05/25 02:16 Angio leg [EV angio LE LT] Routine 05/06/25 17:43 CT chest diagnostic wo con Stat Pending Results Patient Have Any Pending Studies at Discharge: Yes Discharge Instructions Given to Patient (Per Discharging Provider) 1. See your PCP Mr. Jonny Preston PA-C, within 5-7 days of hospital discharge, for routine follow up visit, including repeat Hb and creatinine level testing. Total Time Total Time Spent Total Time Spent (In Minutes): 35 minutes. Of this time period, 19 minutes were spent in coordinating patient's discharge. Coding Level of Care Code 61760 INP/OBS DISCH >30 MIN Diagnoses Acute on chronic systolic and diastolic heart failure, NYHA class 4 I50.43 Acute renal failure N17.9 Acute blood loss anemia D62 Permanent atrial fibrillation I48.21 Atrial fibrillation type: permanent Type 2 diabetes mellitus without complication, without long-term current use of insulin E11.9 Diabetes mellitus nursing home insulin use: without nursing home use Diabetes mellitus complication status: without complication Acquired hypothyroidism E03.9 Hypothyroidism type: acquired
--- NOTE | 2025-05-07 19:05 | XCELERA ---
[id number] \\[id number]
== END 2025-05-07 15:16 | disposition home or self-care (01) | DRG 811 ==
LOC: ED 23:35 → 4W 05-05 02:16 → SUATTDRO 05-05 02:16 → 4W 05-05 03:00